=== PATIENT | male | born 1945 | race Caucasian/White ===

== ENCOUNTER 2020-02-29 06:39 | Emergency (ER) | payer OTHER ==
--- OUTSIDE RECORDS SUMMARY | 2020-02-29 06:41 | XMS REPORT | Continuity of Care Document ---
:[address] [facility] t Address [address] [place] [address] Care Team Providers Name Role Phone Pcp, Does Not Have A Attending Clinician Lab, Fam Pob I Attending Clinician Unavailable Doctor Unassigned, Name Attending Clinician Unavailable Problems This patient has no known problems. Allergies, Adverse Reactions, Alerts This patient has no known allergies or adverse reactions. Medications This patient has no known medications. Procedures This patient has no known procedures. Encounters Start End Encounter Admission Attending Care Care Encounter Source Date/Time Date/Time Type Type Clinicians Facility Department ID 2020-02-27 2020-02-27 Telephone Pcp, [facility] [id number] 00:00:00 00:00:00 Patient Health [id number] Does Not Surgical [id number] Have A Specialti [phone] [address] [place] 2020-02-25 2020-02-25 Laboratory Lab, [facility] [id number] 15:37:19 15:57:19 Only Fam Pob I Health [id number] [place] [id number] Professio [phone] [address]al [address] 2019-12-26 2019-12-26 Laboratory Lab, [facility] [id number] 17:17:23 17:37:23 Only Fam Pob I Health [id number] [place] [id number] Professio [phone] nal [address] 2019-12-26 2019-12-26 Orders Doctor VALERIA [id number] 00:00:00 00:00:00 Only Unassigned, [place]AS[place] [id number] [place] [facility] [phone] [id number] Results This patient has no known results.
--- OUTSIDE RECORDS SUMMARY | 2020-02-29 06:42 | XMS REPORT | Summary of Care ---
:1945 Author Organization [facility] Address [address] [place] [address] Care Team Providers Name Role Phone Unavailable Primary Care Provider Unavailable Reason for Visit Reason Comments LAB covid Encounter Details Date Type Department Care Team Description 12/26/2019 Laboratory Only [facility] Family Unknown, Attending Suspected Covid-19 [facility] Lab, Adc Fam Pob I Virus Infection [address] [place] [address] (Primary D x) [place] [address] Allergies No Known Allergiesdocumented as of this encounter (statuses as of 12/26/2019) Medications Medication Sig Dispensed Refills Start Date End Date Status omeprazole (PRILOSEC) Take 20 mg by mouth 0 Active 20 mg capsule daily. budesonide-formoterol Inhale 2 Puffs 2 0 Active (SYMBICORT) 160-4.5 (two) times daily. mcg/actuation inhaler ALBUTEROL SULFATE Take by mouth. 0 Active (PROVENTIL ORAL) sildenafil (VIAGRA) Take 100 mg by 0 Active 100 mg tablet mouth weekly. albuterol (PROAIR Inhale 2 Puffs 0 Active HFA) 90 mcg/actuation every 6 (six) hours inhaler as needed for Wheezing or Shortness of Breath. ranitidine 150 mg Take 150 mg by 0 Active capsule mouth daily. documented as of this encounter (statuses as of 12/26/2019) Active Problems Not on filedocumented as of this encounter (statuses as of 12/26/2019) Social History Tobacco Use Types Packs/Day Years Used Date Former Smoker Cigarettes Smokeless Tobacco: Never Used Comments: Recently quit smoking Alcohol Use Drinks/Week oz/Week Comments No 0 Standard drinks or equivalent 0.0 Sex Assigned at Date Recorded Not on file COVID-19 Exposure Response Date Recorded In the last month, have you been in contact with No / Unsure 12/26/2019 5:24 PM CDT someone who was confirmed or suspected to have Coronavirus / COVID-19? documented as of this encounter Last Filed Vital Signs Not on filedocumented in this encounter Nursing Notes Marisela Arguello, RN - 12/26/2019 6:00 PM CDTTlencho Goetz is a 74 year old male here for COVID Screening with a Nasopharyngeal Swab All droplet and contact precautions taken with appropriate PPE worn while interacting with patient. ? Goggles ? N95 Mask ? Gloves ? Gown RR 18 Pulse Ox 96% Patient educated on plan of care for visit, swabbing technique, risks and benefits of test and length of time to receive results. Verbal consent obtained to perform test. CDC Fact Sheet for Patients nCoV Diagnostic Panel dated 06/23/2019 and Factsheet What to Do if Sick with COVID 19 06/03/19 provided. Patient swabbed per appropriate nasopharyngeal technique, and patient tolerated well. Patient was discharged from the testing clinic in stable condition. Marisela Arguello RN 12/26/2019 5:25 PM documented in this encounter Plan of Treatment Name Type Priority Associated Diagnoses Order S dari COVID-19 (PCR MOLECULAR LAB Routine Suspected Covid-1 9 Virus Expected: 12/26/2019, TESTING) Infection Expires: 2020 Health Maintenance Due Date Last Done Comments HEPATITIS C (HCV) SCREEN 1945 Depression Screening 1956 DTaP,Tdap,and Td Vaccines (1 - Tdap) 11/07/1963 COLON CANCER SCREENING ANNUAL FIT/FOBT 1994 COLON CANCER SCREENING FIT DNA EVERY 3 YEARS 1994 COLON CANCER SCREENING SIGMOIDOSCOPY EVERY 5 YEARS 1994 COLONOSCOPY 1994 Colorectal Cancer Screening 1994 Zoster Recombinant Vaccine (SHINGRIX) (1 of 2) 1994 LUNG CANCER SCREEN: Recommended for age 55-80 with 30 + 11/07/19 00 pack year history Medicare Wellness Visit 2009 PNEUMOCOCCAL VACCINES 65+ (1 of 1 - PPSV23) 2009 INFLUENZA VACCINE (#1) 2019 documented as of this encounter Implants Implanted Type Area Sales Representative Gas Service Device Shelf Model / Identifier Expiration Date Ser ial / Lot Lens, Sam #[id number] - [id number] LENS Right: Sam 06/07/2022 [id number] / Implanted: Qty: 1 on 09/27/2017 by Radu Najera MD at [facility] 1 [id number] / [id number] documented as of this encounter Results Not on filedocumented in this encounter Visit Diagnoses Diagnosis Suspected Covid-19 Virus Infection - [facility] marissa documented in this encounter Additional Health Concerns Infection Onset Date Last Indicated Resolved Time COVID-19 Rule Out 12/26/2019 12/26/2019 documented as of this encounter Insurance Payer Benefit Plan / Subscriber ID Effective Dates Phone Addre ss Type Group MEDICARE MEDICARE PART A [id number] 2009-Jesusita [phone] Medicare & B t 82 [id number] [place] [phone] AETNA AETNA INDEMNITY [id number] 2013-Jesusita Indjoselito t documented as of this encounter
--- OUTSIDE RECORDS SUMMARY | 2020-02-29 06:42 | XMS REPORT | Summary of Care ---
:1945 Author Organization [facility] Address [address] [place] [address] Care Team Providers Name Role Phone Pcp, Patient Does Not Have A Primary Care Provider +1-000-00 0-0000 Reason for Visit Reason Comments Results Covid Test results Results Encounter Details Date Type Department Care Team Description 02/27/2020 Telephone [facility] Pcp, Patient Does Re sults (Covid Test Urgent Care Not Have A results); Results [address] [facility], [address] [place] [address] [place], [place] [phone] Allergies No Known Allergiesdocumented as of this encounter (statuses as of 02/27/2020) Medications Medication Sig Dispensed Refills Start Date [...] as of this encounter (statuses as of 02/27/2020) Active Problems Not on filedocumented as of this encounter (statuses as of 02/27/2020) Social History Tobacco Use Types Packs/Day Years Used Date Former Smoker Cigarettes Smokeless Tobacco: Never Used Comments: Recently quit smoking Alcohol Use Drinks/Week oz/Week Comments No 0 Standard drinks or equivalent 0.0 Sex Assigned at Date Recorded Not on file COVID-19 Exposure Response Date Recorded In the last month, have you been in contact with Yes 02/25/2020 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 documented as of this encounter Last Filed Vital Signs Not on filedocumented in this encounter Miscellaneous Notes Telephone Encounter - Marisela Arguello RN - 02/27/2020 4:31 PM CSTYour COVID 19 testing results were positive. At this time, the COVID 19 virus was detected in your sample. If this is the first time you tested positive for COVID 19, we recommend that you remain in self- quarantine along with those in your immediate household until you have been contacted by your [facility] health department who will work with you on when you may discontinue self- quarantine. In addition, your company's employee health department may have additional requirements for clearance to work. Please work with your [facility] health department to address those requirements. Please follow the advice you received in your After Visit Summary (AVS), the CDC document on what todo if you are sick with COVID and/or the CDC document on the COVID 19 test you received. Please stayinside and preferably in one room. Avoid close contact with your family and neighbors to prevent further spread. Wear a face mask if in the presence of someone else. Do not share household items such as dishes and toiletries. Be sure to clean your space thoroughly and wash your hands frequently. If you have symptoms, most people feel better within 7-14 days. If your symptoms are worsening and you feel very short of breath and you have difficulty performing basic tasks such as walking to the bathroomor preparing food, we would like you to contact the [facility] at [phone] or toll free to talk with a nurse or, if your symptoms are urgent, go to the nearest Emergency Room. Please wear a face mask and call prior to going to a healthcare facility. The local health department will be contacting you soon to follow up. If you are a [facility] or contract employee or student, please refer to this website for more information [email or web address]. If this is not the first positive result you received, please be advised that it is unclear, at thistime, how long the virus remains detectable in samples. It appears it could be weeks before a samplebecomes negative. The date of your first positive test and your current symptoms will determine whenyou may discontinue quarantine. Please work with the [facility] for instructions. For further guidance on when you can expect to discontinue quarantine and return to work, please visit the CDC website: https://www.cdc.gov/coronavirus/2019-ncov/hcp/qsludfarmwy-br-hhxa-patients.html. [facility] recommends the symptom-based strategy for those who have symptoms and the time-based strategy for those who do not have symptoms. Repeat testing is not routinely recommended for any reason due to the prolonged detection of the virus in samples without evidence of transmission. General guidance includes release from quarantine when the following conditions are met: ? At least 24 hours have passed since recovery defined as resolution of fever without the use of fever-reducing medications and ? Improvement in symptoms (e.g., cough, shortness of breath); and, ? At least 10 days have passed since symptoms first appeared or the first positive test if symptoms have not developed or worsened since testing, at which point, use date symptoms began. ? Continue to wear a face mask until 14 days have passed since your first test or first symptoms appeared. ? If you experience a worsening of symptoms or recover and then redevelop symptoms, please speak with a provider for further evaluation. Those in your household should remain in quarantine for 14 days to allow time for incubation, or, iftesting positive, should follow the above guidelines for discontinuing quarantine. elephone Encounter - Sydnee King - 02/27/2020 1:18 PM CSTPatient calling for status of his results. elephone Encounter - Lynn Steele - 02/27/2020 10:06 AM LEAD TRAINER Patient is calling for results. Please advise. documented in this encounter Plan of Treatment Health Maintenance Due Date Last Done Comments [...] of this encounter Implants Implanted Type Area Child Care Supervisor Device Shelf Model / Identifier Expiration Date Ser ial / Lot Lens, Sam #[id number] - [id number] LENS Right: Sam 06/07/2022 [id number] / Implanted: Qty: 1 on 09/27/2017 by Radu Najera MD at [facility] 1 [id number] / [id number] documented as of this encounter Results Not on filedocumented in this encounter Additional Health Concerns Infection Onset Date Last Indicated Resolved Time COVID-19 Confirmed 02/25/2020 02/25/2020 documented as of this encounter Insurance Payer Benefit Plan / Subscriber ID Effective Dates Phone Addre ss Type Group MEDICARE MEDICARE PART A [id number] 2009-Jesusita [phone] Medicare & B t 82 [id number] [place] [phone] AETNA AETNA INDEMNITY [id number] 2013-Jesusita Indjoselito navarro documented as of this encounter
--- OUTSIDE RECORDS SUMMARY | 2020-02-29 06:42 | XMS REPORT | Summary of Care ---
:1945 Author Organization [facility] Address [address] [place] [address] Care Team Providers Name Role Phone Pcp, Patient Does Not Have A Primary Care Provider +1-000-00 0-0000 Reason for Visit Reason Comments LAB Exposure Encounter Details Date Type Department Care Team Description 02/25/2020 Laboratory Only [facility] Family Aaron Michel FNP [address] [place] [address] Exposure to Medicine - [facility], Adc Fam Pob I SARS-associated [address] [place] [address] coronaviru s (Primary Drive Dx) [place] [address] Allergies No Known Allergiesdocumented as of this encounter (statuses as of 02/25/2020) Medications Medication Sig Dispensed Refills Start Date [...] as of this encounter (statuses as of 02/25/2020) Active Problems Not on filedocumented as of this encounter (statuses as of 02/25/2020) Social History Tobacco Use Types Packs/Day Years Used Date Former Smoker Cigarettes Smokeless Tobacco: Never Used Comments: Recently quit smoking Alcohol Use Drinks/Week oz/Week Comments No 0 Standard drinks or equivalent 0.0 Sex Assigned at Date Recorded Not on file COVID-19 Exposure Response Date Recorded In the last month, have you been in contact with Yes 02/25/2020 3:41 PM 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 documented as of this encounter Last Filed Vital Signs Not on filedocumented in this encounter Nursing Notes Bren Mejia MA - 02/25/2020 4:00 PM CSTTersky Goetz is a 74 year old male here for COVID Screening with a Nasopharyngeal Swab All droplet and contact precautions taken with appropriate PPE worn while interacting with patient. ? Goggles ? N95 Mask ? Gloves ? Gown RR 14 Pulse 86 Ox 96% Patient educated on plan of care for visit, swabbing technique, risks and benefits of test and length of time to receive results. Verbal consent obtained to perform test. CDC Fact Sheet for Patients nCoV Diagnostic Panel dated 06/23/2019 and Factsheet What to Do if Sick with COVID 19 06/03/19 provided. Bilate nares swabbed during COVID19 nasopharyngeal swab. Patient swabbed per appropriate nasopharyngeal technique, and patient tolerated well. Patient was discharged from the testing clinic in stable condition. BREN MEJIA MA 02/25/2020 3:40 PM ING OR NIGHT NURSE SUPERVISOR documented in this encounter Plan of Treatment Name Type Priority Associated Diagnoses Order S lisadufranc COVID-19 (MOLECULAR LAB Routine Exposure to Expected : 02/25/2020, TESTING SARS-associated Expires: 021 NUCLEIC ACID coronavirus AMPLIFICATION) Health Maintenance Due Date Last Done Comments [...] of this encounter Implants Implanted Type Area Seasonal Retail Merchandiser Device Shelf Model / Identifier Expiration Date Ser ial / Lot Lens, Sam #[id number] - [id number] LENS Right: Sam 06/07/2022 [id number] / Implanted: Qty: 1 on 09/27/2017 by Radu Najera MD at [facility] 1 [id number] / [id number] documented as of this encounter Results Not on filedocumented in this encounter Visit Diagnoses Diagnosis Exposure to SARS-associated coronavirus - Primary documented in this encounter Additional Health Concerns Infection Onset Date Last Indicated Resolved Time COVID-19 Rule Out 02/25/2020 02/25/2020 documented as of this encounter Insurance Payer Benefit Plan / Subscriber ID Effective Dates Phone Addre ss Type Group MEDICARE MEDICARE PART A [id number] 2009-Jesusita [phone] Medicare & B t 82 [id number] [place] [phone] AETNA AETNA INDEMNITY [id number] 2013-Jesusita Indemgilmaty t documented as of this encounter
--- OUTSIDE RECORDS SUMMARY | 2020-02-29 06:42 | XMS REPORT | Summary of Care ---
:1945 Author Organization [facility] Address [address] [place] [address] Care Team Providers Name Role Phone Unavailable Primary Care Provider Unavailable Encounter Details Date Type Department Care Team Description 12/26/2019 Orders Only [facility] Doctor Unassigned, No [address] [facility] [place] [address] [address] [place] [address] Allergies No Known Allergiesdocumented as of this [...] Assigned at Date Recorded Not on file documented as of this encounter Last Filed Vital Signs Not on filedocumented in this encounter Plan of Treatment Date Type Specialty Care Team Description 12/26/2019 Laboratory Only Family [facility] Unknown, Attending Lab, Adc Fam Pob I Health Maintenance Due Date Last Done Comments [...] of this encounter Implants Implanted Type Area Lawn Care Technician Device Shelf Model / Identifier Expiration Date Ser ial / Lot Lens, Sam #[id number] - [id number] LENS Right: Sam 06/07/2022 [id number] / Implanted: Qty: 1 on 09/27/2017 by Radu Najera MD at [facility] 1 [id number] / [id number] documented as of this encounter Procedures Procedure Name Priority Date/Time Associated Diagnosis Comme nts ASSIGNMENT OF BENEFITS Routine 12/26/2019 5:14 PM CDT documented in this encounter Results Not on filedocumented in this encounter Insurance Payer Benefit Plan / Subscriber ID Effective Dates Phone Addre ss Type Group MEDICARE MEDICARE PART A [id number] 2009-Jesusita [phone] Medicare & B t 82 [id number] [place] [phone] AETNA AETNA INDEMNITY [id number] 2013-Jesusita Indemnity t documented as of this encounter
[2020-02-29] MEDS ORDERED: NA CHLORIDE 0.9% 500 ML ONE (08:00)
[2020-02-29 08:05] LABS: Absolute Lymphocytes (CBC) 0.8 K/uL (0.7-4.9); Basophils % 0.9 % (0-1.3); Hematocrit 45.3 % (39.6-49.0); Lymphocytes % 18.7 % (15.3-44.8); MPV 8.5 fL (7.6-11.3); RBC Red Blood Cell Count 5.15 M/uL (4.33-5.43)
[2020-02-29] MEDS ORDERED: FAMOTIDINE 20 MG/2 ML VIAL IV ONE (08:13)
[2020-02-29 08:24] LABS: Albumin 3.3 g/dL (3.4-5.0); Bilirubin Direct 0.2 mg/dL (0-0.2); Bilirubin Total 0.6 mg/dL (0.2-1.0); Potassium 4.7 mmol/L (3.5-5.1); Protein, Total 7.3 g/dL (6.4-8.2)
--- NOTE | 2020-02-29 10:02 | ER ---
Nurse's Notes [facility] Name: Ricky Goetz Age: 74 yrs Sex: Male : 1945 Arrival Date: 02/29/2020 Time: 06:44 Bed 14 Private MD: Diagnosis: Diarrhea, unspecified;Dehydration;Nausea Presentation: 02/28 07:10 Chief complaint: Patient states: his PCP sent him here to get some IVF, pt had been sv having diarrhea since Monday but doesn't currently because he was prescribed an antidiarrheal med. c/o loss of appetite. COVID-19+. Coronavirus screen: Client denies travel out of the [place] in the last 14 days. Client reports previous positive COVID test result. Date of collection: February 25, 2020. Ebola Screen: No symptoms or risks identified at this time. Initial Sepsis Screen: Does the patient meet any 2 criteria? No. Patient's initial sepsis screen is negative. Does the patient have a suspected source of infection? No. Patient's initial sepsis screen is negative. Risk Assessment: Do you want to hurt yourself or someone else? Patient reports no desire to harm self or others. Onset of symptoms was February 25, 2020. 07:10 Method Of Arrival: Ambulatory sv 07:10 Acuity: NANNETTE 3 sv Triage Assessment: 07:13 General: Appears in no apparent distress. comfortable, malnourished, Behavior is calm, sv cooperative, appropriate for age. Pain: Denies pain. Neuro: Level of Consciousness is awake, alert, obeys commands, Oriented to person, place, time, situation, Gait is steady. Respiratory: Respiratory effort is even, unlabored. GI: Patient currently denies diarrhea. Historical: - Allergies: 07:13 No Known Allergies; sv - Home Meds: 07:13 Omeprazole Oral [Active]; Albuterol Inhl [Active]; sildenafil oral oral [Active]; sv Famotidine Oral [Active]; - PMHx: 07:13 GERD; COPD; Asthma; Emphysema; Grave's dx; sv - PSHx: 07:13 cataract removed; back sx x3; sv - Immunization history:: Flu vaccine is up to date. - Social history:: Smoking status: Patient denies any tobacco usage or history of. Screenin:04 Abuse screen: Denies threats or abuse. Nutritional screening: No deficits noted. em Tuberculosis screening: No symptoms or risk factors identified. Fall Risk None identified. Assessment: 07:50 General: Appears in no apparent distress. comfortable, Behavior is calm, cooperative, em appropriate for age, Denies fever. Pain: Denies pain. Neuro: Level of Consciousness is awake, alert, obeys commands, Oriented to person, place, time, situation, Appropriate for age. Cardiovascular: Denies chest pain, Capillary refill < 3 seconds Patient's skin is warm and dry. Respiratory: Airway is patent Respiratory effort is even, unlabored, Respiratory pattern is regular, symmetrical, Denies cough, shortness of breath. GI: Abdomen is flat, Reports diarrhea, intolerance of fluids, intolerance of food, Patient currently denies nausea, vomiting. Derm: Skin is intact, is fragile, is thin, Skin is pink, warm \T\ dry. Musculoskeletal: Capillary refill < 3 seconds, Range of motion: intact in all extremities. 08:39 Reassessment: Patient appears in no apparent distress at this time. Patient and/or em family updated on plan of care and expected duration. Pain level reassessed. Patient is alert, oriented x 3, equal unlabored respirations, skin warm/dry/pink. 09:50 Reassessment: given water for PO challenge, tolerated well, provider notified. em Vital Signs: 07:10 BP 132 / 65; Pulse 63; Resp 14; Temp 98.3; Pulse Ox 98% ; Weight 68.04 kg; Height 5 ft. sv 9 in. (175.26 cm); Pain 0/10; 08:23 BP 118 / 105; Pulse 65; Resp 18; Pulse Ox 99% on R/A; em 09:30 BP 125 / 66; Pulse 65; Resp 18; Pulse Ox 100% on R/A; em 07:10 Body Mass Index 22.15 (68.04 kg, 175.26 cm) sv ED Course: 06:44 Patient arrived in ED. ag3 07:08 Santy Downing MD is Attending Physician. kdr 07:12 Triage completed. sv 07:13 Arm band placed on Patient placed in an exam room. sv 07:22 Jose Iqabl, ASTRID is Primary Nurse. em 07:50 Patient has correct armband on for positive identification. Side rails up X2. Pulse ox em on. NIBP on. 07:55 Initial lab(s) drawn, by me, sent to lab. Inserted saline lock: 20 gauge in right em antecubital area, using aseptic technique. Blood collected. 09:54 Diet: Patient given water. dh3 10:02 No provider procedures requiring assistance completed. IV discontinued, intact, em bleeding controlled, No redness/swelling at site. Pressure dressing applied. Administered Medications: 07:55 Drug: NS 0.9% 500 ml Route: IV; Rate: bolus; Site: right antecubital; em 10:02 Follow up: IV Status: Completed infusion; IV Intake: 500ml em 08:01 Drug: Pepcid 20 mg Route: IVP; Site: right antecubital; em 10:01 Follow up: Response: No adverse reaction em Intake: 10:02 IV: 500ml; Total: 500ml. em Outcome: 10:01 Discharge ordered by . kdr 10:15 Discharged to home via wheelchair. em 10:15 Condition: good 10:15 Discharge instructions given to patient, family, Instructed on discharge instructions, follow up and referral plans. medication usage, Demonstrated understanding of instructions, follow-up care, medications, Prescriptions given X 1. 10:16 Patient left the ED. em Signatures: Michelle Caceres RN RN sv Rittger, Kevin, MD MD kdr Munoz, Edgar, RN RN em Herrera, Deanna community [facility] Chio Morton 3
--- NOTE | 2020-02-29 10:02 | EDPHYS ---
Physician Documentation [facility] Name: Ricky Goetz Age: 74 yrs Sex: Male : 1945 Arrival Date: 02/29/2020 Time: 06:44 Bed 14 Private MD: ED Physician Santy Downing HPI: 02/28 07:37 This 74 yrs old Male presents to ER via Ambulatory with complaints of kdr Diarrhea. 07:37 The patient tested positive for COVID on Monday. He and been feeling poorly since last kdr weekend and has been having diarrhea after attempting to eat and drink. He generally feels weak and currently has no TOMPKINS or fever for the last few days. Onset: The symptoms/episode began/occurred gradually, 1 week(s) ago. Severity of symptoms: At their worst the symptoms were mild moderate just prior to arrival, in the emergency department the symptoms have improved mildly. The patient has not experienced similar symptoms in the past. The patient has been recently seen by a physician:. Historical: - Allergies: 07:13 No Known Allergies; sv - Home Meds: 07:13 Omeprazole Oral [Active]; Albuterol Inhl [Active]; sildenafil oral oral [Active]; sv Famotidine Oral [Active]; - PMHx: 07:13 GERD; COPD; Asthma; Emphysema; Grave's dx; sv - PSHx: 07:13 cataract removed; back sx x3; sv - Immunization history:: Flu vaccine is up to date. - Social history:: Smoking status: Patient denies any tobacco usage or history of. ROS: 07:37 Constitutional: Negative for fever, chills, for the last three days and weight loss, kdr Eyes: Negative for injury, pain, redness, and discharge, ENT: Negative for injury, pain, and discharge, Neck: Negative for injury, pain, and swelling, Cardiovascular: Negative for chest pain, palpitations, and edema, Respiratory: Negative for shortness of breath, cough, wheezing, and pleuritic chest pain, Back: Negative for injury and pain, : Negative for injury, bleeding, discharge, and swelling, MS/Extremity: Negative for injury and deformity, Skin: Negative for injury, rash, and discoloration, Neuro: Negative for headache, weakness, numbness, tingling, and seizure activity. Psych: Negative for depression, anxiety, suicide ideation, homicidal ideation, and hallucinations, Allergy/Immunology: Negative for hives, rash, and allergies, Endocrine: Negative for neck swelling, polydipsia, polyuria, polyphagia, and marked weight changes, Hematologic/Lymphatic: Negative for swollen nodes, abnormal bleeding, and unusual bruising. 07:37 Abdomen/GI: Positive for diarrhea, Negative for vomiting, constipation, abdominal distension, anorexia, dysphagia, hematemesis, black/tarry stool, rectal pain, rectal bleeding, bowel incontinence. Exam: 07:37 Constitutional: This is a well developed, well nourished patient who is awake, alert, kdr and in no acute distress. Head/Face: Normocephalic, atraumatic. Eyes: Pupils equal round and reactive to light, extra-ocular motions intact. Lids and lashes normal. Conjunctiva and sclera are non-icteric and not injected. Cornea within normal limits. Periorbital areas with no swelling, redness, or edema. Neck: Trachea midline, no thyromegaly or masses palpated, and no cervical lymphadenopathy. Supple, full range of motion without nuchal rigidity, or vertebral point tenderness. No Meningismus. Chest/axilla: Normal chest wall appearance and motion. Nontender with no deformity. No lesions are appreciated. Cardiovascular: Regular rate and rhythm with a normal S1 and S2. No gallops, murmurs, or rubs. Normal PMI, no JVD. No pulse deficits. Respiratory: Lungs have equal breath sounds bilaterally, clear to auscultation and percussion. No rales, rhonchi or wheezes noted. No increased work of breathing, no retractions or nasal flaring. Abdomen/GI: Soft, non-tender, with normal bowel sounds. No distension or tympany. No guarding or rebound. No evidence of tenderness throughout. Back: No spinal tenderness. No costovertebral tenderness. Full range of motion. Skin: Warm, dry with normal turgor. Normal color with no rashes, no lesions, and no evidence of cellulitis. MS/ Extremity: Pulses equal, no cyanosis. Neurovascular intact. Full, normal range of motion. Neuro: Awake and alert, GCS 15, oriented to person, place, time, and situation. Cranial nerves II-XII grossly intact. Motor strength 5/5 in all extremities. Sensory grossly intact. Cerebellar exam normal. Normal gait. Psych: Awake, alert, with orientation to person, place and time. Behavior, mood, and affect are within normal limits. Vital Signs: 07:10 BP 132 / 65; Pulse 63; Resp 14; Temp 98.3; Pulse Ox 98% ; Weight 68.04 kg; Height 5 ft. sv 9 in. (175.26 cm); Pain 0/10; 08:23 BP 118 / 105; Pulse 65; Resp 18; Pulse Ox 99% on R/A; em 09:30 BP 125 / 66; Pulse 65; Resp 18; Pulse Ox 100% on R/A; em 07:10 Body Mass Index 22.15 (68.04 kg, 175.26 cm) sv MDM: 07:37 Data reviewed: vital signs, nurses notes, lab test result(s), radiologic studies. kdr Counseling: I had a detailed discussion with the patient and/or guardian regarding: the historical points, exam findings, and any diagnostic results supporting the discharge/admit diagnosis, lab results, radiology results, the need for outpatient follow up. 10:01 Patient medically screened. kdr 10:04 Special discussion: Based on the patient's Hx, exam, and Dx evaluation, there is no kdr indication for emergent surgery or inpatient Tx. It is understood by the patient/guardian that if the Sx's persist or worsen they need to return immediately for re-evaluation. I discussed with the patient/guardian in detail that at this point there is no indication for admission to the hospital. It is understood, however, that if the symptoms persist or worsen the patient needs to return immediately for re-evaluation. 10:04 ED course: The patient was taking PO and feeling much better and ready to go home. He kdr was much improved with the interventions given. 02/28 07:36 Order name: Basic Metabolic Panel; Complete Time: 09: kdr 02/28 07:36 Order name: CBC with Diff; Complete Time: 09: kdr 02/28 07:36 Order name: Hepatic Function; Complete Time: 09: kdr 02/28 07:36 Order name: Lipase; Complete Time: 09: kdr 02/28 07:36 Order name: IV Saline Lock; Complete Time: 07:56 kdr 02/28 07:36 Order name: Labs collected and sent; Complete Time: 07:56 kdr 02/28 09:09 Order name: PO challenge; Complete Time: 09:54 kdr Administered Medications: 07:55 Drug: NS 0.9% 500 ml Route: IV; Rate: bolus; Site: right antecubital; em 10:02 Follow up: IV Status: Completed infusion; IV Intake: 500ml em 08:01 Drug: Pepcid 20 mg Route: IVP; Site: right antecubital; em 10:01 Follow up: Response: No adverse reaction em Disposition: 02/29/20 10:01 Discharged to Home. Impression: Diarrhea, unspecified, Dehydration, Nausea. - Condition is Stable. - Discharge Instructions: Dehydration, Elderly, Diarrhea, Adult, Noad-ae-Krzm. - Prescriptions for Zofran 4 mg Oral Tablet - take 1 tablet by ORAL route every 4-6 hours As needed; 12 tablet. - Medication Reconciliation Form, Thank You Letter form. - Follow up: Private Physician; When: 2 - 3 days; Reason: If symptoms return, Further diagnostic work-up, Recheck today's complaints, Continuance of care, Re-evaluation by your physician. - Problem is new. - Symptoms have improved. Signatures: Dispatcher [employer] Michelle Roca RN RN sv Santy Downing MD MD [facility] Jose Iqbal RN RN em Corrections: (The following items were deleted from the chart) 10:16 10:01 02/29/2020 10:01 Discharged to Home. Impression: Diarrhea, unspecified; em Dehydration; Nausea. Condition is Stable. Forms are Medication Reconciliation Form, Thank You Letter, Antibiotic Education, Prescription Opioid Use. Follow up: Private Physician; When: 2 - 3 days; Reason: If symptoms return, Further diagnostic work-up, Recheck today's complaints, Continuance of care, Re-evaluation by your physician. Problem is new. Symptoms have improved. kdr
[2020-02-29 16:20] VITALS: TEMP 98.3
[2020-02-29 16:23] VITALS: BP 125/66; O2SAT 100
== END 2020-02-29 10:16 | disposition home or self-care (01) ==
LOC: ER 06:39
DX: E86.0 Dehydration (principal); R11.0 Nausea; Z86.19 Personal history of other infectious and parasitic diseases; J44.9 Chronic obstructive pulmonary disease, unspecified
CPT/HCPCS: 96361; 85025; 80048; 36415; 80076; 83690; 96374; 99284; J7040

== ENCOUNTER 2020-03-04 11:37 | Observation (INO) | payer OTHER ==
--- OUTSIDE RECORDS SUMMARY | 2020-03-04 11:39 | XMS REPORT | Continuity of Care Document ---
:1945 Author Organization [facility] t Address [address] [place] [address] Care Team Providers Name Role Phone Pcp, [...] Facility Department ID 2020-02-27 2020-02-27 Telephone Pcp, [facility] [id number] 00:00:00 00:00:00 Patient Health [id number] Does Not Surgical [id number] Have A Specialti [phone] es [address] [place] 2020-02-25 2020-02-25 Laboratory Lab, [facility] [id number] 15:37:19 15:57:19 Only Fam Pob I Health [id number] [place] [id number] Professio [phone] [address] 2019-12-26 2019-12-26 Laboratory Lab, [facility] [id number] 17:17:23 17:37:23 Only Fam Pob I Health [id number] [place] [id number] Professio [phone] [address] 2019-12-26 2019-12-26 Orders Doctor VALERIA [id number] 00:00:00 00:00:00 Only Unassigned, VASQUEZ [id number] Katherine [facility] [phone] [id number] Results This patient has no known results.
--- NOTE | 2020-03-04 12:36 | RAD REPORT ---
EXAM DESCRIPTION: RAD - Chest Single View - 03/04/2020 12:27 pm CLINICAL HISTORY: general weaknesshistory of positive COVID test COMPARISON: December 18 TECHNIQUE: AP portable chest image was obtained 03/04/2020 12:27 pm . FINDINGS: No dense consolidated mass seen. However, the patient has bilateral hazy ground-glass opac ities scattered throughout both lung king with relative sparing of each apex in each base. Right co stophrenic angle blunting is present. Heart and vasculature are normal. No pneumothorax. No acute bon y abnormality seen. No acute aortic findings suspected. IMPRESSION: Probable COVID-19 pneumonia
[2020-03-04 12:48] LABS: Absolute Lymphocytes (CBC) 0.7 K/uL (0.7-4.9); Basophils % 0.5 % (0-1.3); Hematocrit 44.4 % (39.6-49.0); Lymphocytes % 9.8 % (15.3-44.8); MPV 8.7 fL (7.6-11.3); Protime INR 1.1; RBC Red Blood Cell Count 5.13 M/uL (4.33-5.43)
[2020-03-04 13:01] LABS: ALT/SGPT 27 U/L (12-78); AST/SGOT 56 U/L (15-37); Albumin 2.9 g/dL (3.4-5.0); Alkaline Phosphatase 54 U/L (45-117); BUN Blood Urea Nitrogen 36 mg/dL (7-18); Bicarbonate 26 mmol/L (21-32); Bilirubin Direct 0.4 mg/dL (0-0.2); Bilirubin Total 0.7 mg/dL (0.2-1.0); Glucose Level 102 mg/dL (74-106); Magnesium 2.3 mg/dL (1.8-2.4); NT PRO-BNP 240 pg/mL (<450); Protein, Total 6.9 g/dL (6.4-8.2); Sodium Level 141 mmol/L (136-145); Troponin (Emerg Dept Use Only) < 0.02 ng/mL (0.0-0.045)
[2020-03-04] MEDS ORDERED: NA CHLORIDE 0.9% 500 ML ONE (13:22)
[2020-03-04 13:27] LABS: Blood Morphology Comment NOT SEEN (NOT SEEN); Platelet Estimate ADEQ; White Blood Cell Scan OK (OK)
--- NOTE | 2020-03-04 13:50 | ER ---
Nurse's Notes [facility] Name: Ricky Goetz Age: 74 yrs Sex: Male : 1945 Arrival Date: 03/04/2020 Time: 11:39 Bed 8 Private MD: Diagnosis: Weakness;Pneumonia due to other specified infectious organisms Presentation: 03/04 11:52 Chief complaint: Patient states: Weakness and dehydration for 1 week. Diagnosed covid ll1 positive last week per patient. Still coughing, fever has resolved the past 4 days. No N/V/D, but has no appetite. Coronavirus screen: Client denies travel out of the [place] in the last 14 days. cough unrelated to allergies, difficulty breathing, fatigue, Client presents with at least one sign or symptom that may indicate coronavirus-19. Standard/surgical mask placed on the client. Client reports previous positive COVID test result. Ebola Screen: Patient denies travel to an Ebola-affected area in the 21 days before illness onset. No acute neurological deficit is noted. Initial Sepsis Screen: Does the patient meet any 2 criteria? RR > 20 per min. No. Patient's initial sepsis screen is negative. Does the patient have a suspected source of infection? Yes: Productive cough/pneumonia Other: covid +. Risk Assessment: Do you want to hurt yourself or someone else? Patient reports no desire to harm self or others. Onset of symptoms was February 26, 2020. 11:52 Method Of Arrival: Wheelchair ll1 11:52 Acuity: NANNETTE 3 ll1 Triage Assessment: 12:00 The onset of the patients symptoms was at an unknown time. General: Appears distressed, bp uncomfortable, Behavior is cooperative, appropriate for age, anxious. Pain: Complains of pain in buttocks. EENT: No deficits noted. Neuro: Reports weakness. Cardiovascular: No deficits noted. Respiratory: No deficits noted. GI: No signs and/or symptoms were reported involving the gastrointestinal system. : Reports DARK URINE. Derm: No deficits noted. Musculoskeletal: No deficits noted. Stroke Activation: Symptom onset > 6 hours Physician: Stroke Attending; Name: ; Notified At: ; Arrived At: Physician: Chief Stroke Resident; Name: ; Notified At: ; Arrived At: Physician: Stroke Resident; Name: ; Notified At: ; Arrived At: Physician: ED Attending; Name: ; Notified At: ; Arrived At: Physician: ED Resident; Name: ; Notified At: ; Arrived At: Historical: - Allergies: 11:57 No Known Allergies; ll1 - PMHx: 11:57 COPD; Emphysema; GERD; Grave's dx; Asthma; ll1 - PSHx: 11:57 cataract removed; back sx x3; ll1 - Immunization history:: Pneumococcal vaccine is up to date, Flu vaccine is up to date. - Social history:: Smoking status: Patient denies any tobacco usage or history of. Screenin:00 Abuse screen: Denies threats or abuse. Denies injuries from another. Nutritional bp screening: No deficits noted. Tuberculosis screening: No symptoms or risk factors identified. Fall Risk Fall in past 12 months (25 points). No secondary diagnosis (0 pts). IV access (20 points). Ambulatory Aid- None/Bed Rest/Nurse Assist (0 pts). Gait- Weak (10 pts.). Mental Status- Oriented to own ability (0 pts). Total Morales Fall Scale indicates High Risk Score (45 or more points). Fall prevention measures have been instituted. Side Rails Up X 2 Placed Close to Nursing Station Frequent Obs/Assessments Occuring Family Present and informed to notify staff if the need to leave the bedside As available patient and family educated on Fall Prevention Program and Strategies. Assessment: 12:00 General: SEE TRIAGE NOTE. bp 13:01 Reassessment: Call from Hortencia from Lab, patient lactate of 2.3 reported. Notified vg1 Provider. 13:05 T-PA (Activase) Screening: Contraindications: Patient reports onset of signs and bp symptoms of stroke greater than 6 hours ago: Yes. 13:13 VAN Scoring: Arm Drift: Patients demonstrates NO arm weakness. Patient is VAN Negative. bp The patient has not been NPO before screening. The patient is alert, and able to follow commands. The patient does not exhibit slurred or garbled speech. The patient is not exhibiting difficulty speaking. The patient does not exhibit difficulty understanding words. The patient is able to swallow own secretions with no drooling or need for suction. Patient tolerated one teaspoon of water. No drooling, immediate coughing, gurgling, or clearing of the throat was noted. The patient tolerated 90mL of water. No drooling, immediate coughing, gurgling, or clearing of the throat was noted. The patient passed the bedside swallow screening. Oral medications may be given as ordered. Contact Physician for further diet orders. Provider notified of bedside swallow screening results: Enrrique MCGRATH. 13:40 Reassessment: ADD'L ABX REQUESTED FROM PHARMACY. bp 14:30 Reassessment: No changes from previously documented assessment. Patient and/or family bp updated on plan of care and expected duration. Pain level reassessed. Patient is alert, oriented x 3, equal unlabored respirations, skin warm/dry/pink. ADMIT INITIATED. ADMIT MD AT B/S. 15:30 Reassessment: ADMIT IN PROCESS. Respiratory: Breath sounds are coarse bilaterally. bp 16:29 Reassessment: ADMIT COMPLETE, REPORT TO [facility]ILB[facility]O RESENDIZ. TRANSPORT ELBA PENDING. bp Vital Signs: 11:52 BP 128 / 87; Pulse 72; Resp 22; Temp 97.7(O); Pulse Ox 92% on R/A; Weight 73.48 kg; ll1 Height 5 ft. 9 in. (175.26 cm); Pain 0/10; 12:20 BP 121 / 78 Supine; Pulse 66; bp 12:25 BP 65 / 50 Standing; Pulse 54; bp 13:00 BP 128 / 77; Pulse 81; Resp 16; Pulse Ox 95% ; bp 14:00 BP 132 / 72; Pulse 72; Resp 16; Pulse Ox 96% ; bp 15:00 BP 109 / 96; Pulse 70; Resp 16; Pulse Ox 95% ; bp 16:00 BP 128 / 74; Pulse 71; Resp 16; Pulse Ox 98% ; bp 11:52 Body Mass Index 23.92 (73.48 kg, 175.26 cm) ll1 NIH Stroke Scale Scores: 13:13 NIHSS Score: 2 bp ED Course: 11:39 Patient arrived in ED. ds1 11:41 Enrrique Reynoso PA is PHCP. cp 11:41 Pauline Walls MD is Attending Physician. cp 11:53 Reid Rasheed, ASTRID is Primary Nurse. bp 11:56 Triage completed. ll1 11:56 Arm band placed on Patient placed in an exam room, on a stretcher. ll1 12:00 Patient has correct armband on for positive identification. Bed in low position. Call bp light in reach. Side rails up X2. Adult w/ patient. 12:15 Inserted saline lock: 22 gauge in right forearm, using aseptic technique. bp 12:27 XRAY Chest (1 view) In Process Unspecified. EDMS 13:49 Jose Garza DO is Hospitalizing Provider. cp 15:[address] via stretcher. jj2 15:15 CT completed. Patient tolerated procedure well. jj2 15:34 No provider procedures requiring assistance completed. Patient admitted, IV remains in bp place. Administered Medications: 12:20 Drug: Albuterol HFA Inhaler 2 puffs Route: Inhalation; bp 13:05 Drug: NS 0.9% 500 ml Route: IV; Rate: bolus; Site: right wrist; bp 15:32 Follow up: IV Status: Completed infusion; IV Intake: 500ml bp 13:40 Drug: Rocephin 1 grams Route: IV; Rate: calculated rate; Site: right antecubital; bp 15:32 Follow up: IV Status: Completed infusion; IV Intake: 50ml bp 14:06 Not Given (Physician Discretion): Decadron - Dexamethasone 6 mg IVP once cp 14:20 Drug: SOLU-Medrol 60 mg Route: IVP; Site: right antecubital; bp 15:32 Follow up: Response: No adverse reaction bp 16:35 Follow up: Response: No adverse reaction bp 15:00 Drug: Zithromax 500 mg Route: IVPB; Infused Over: 1 hrs; Site: right antecubital; bp 16:35 Follow up: IV Status: Completed infusion; IV Intake: 250ml bp Intake: 15:32 IV: 500ml; Total: 500ml. bp 15:32 IV: 50ml; Total: 550ml. bp 16:35 IV: 250ml; Total: 800ml. bp Outcome: 13:49 Decision to Hospitalize by Provider. cp 16:32 Admitted to ICU accompanied by tech, via stretcher, room 7, Report called to GILBERTO RESENDIZ bp 16:32 Condition: stable 16:32 Instructed on the need for admit. 16:53 Patient left the ED. bp NIH Stroke Scale - NIH Stroke Score Date: 03/04/2020 Time: 13:13 Total Score = 2 1a. Level of Consciousness (LOC) - 0(Alert) 1b. Level of Consciousness (LOC) (Year \T\ Age) - 0(Both) 1c. LOC Commands (Open \T\ Closes Eyes/Electrical Prospecting Operator) - 0(Both) 2. Best Gaze (Lateral Gaze Paresis) - 0(Normal) 3. Visual Field Loss - 0(No visual loss) 4. Facial Palsy - 0(Normal) 5a. Left Arm: Motor (10-second hold) - 0(No drift) 5b. Right Arm: Motor (10-second hold) - 0(No drift) 6a. Left Leg: Motor (5-second hold - always test supine) - 1(Drift) 6b. Right Leg: Motor (5-second hold - always test supine) - 1(Drift) 7. Limb Ataxia (finger/nose \T\ heel/stone - test with eyes open) - 0(Absent) 8. Sensory Loss (pinprick arms/legs/face) - 0(Normal) 9. Best Language: Aphasia (description/naming/reading) - 0(No aphasia) 10. Dysarthria (speech clarity - read or repeat words) - 0(Normal) 11. Extinction and Inattention (visual/tactile/auditory/spatial/personal) - 0(No abnormality) Initials: bp Signatures: Dispatcher [employer] EDMS Timothy Woodson jj2 Rj, Yelitza ds1 Enrrique Reynoso PA PA cp Peltier, Brian, RN RN bp Virginia Rodriguez, ASTRID RN vg1 Carl Trujillo, ASTRID RN ll1 Corrections: (The following items were deleted from the chart) 14:48 12:15 Inserted saline lock: 20 gauge in right forearm, using aseptic technique. bp bp
--- NOTE | 2020-03-04 13:51 | EDPHYS ---
Physician Documentation [facility] Name: Ricky Goetz Age: 74 yrs Sex: Male : 1945 Arrival Date: 03/04/2020 Time: 11:39 Bed 8 Private MD: ED Physician Pauline Walls HPI: 03/04 12:00 This 74 yrs old Male presents to ER via Wheelchair with complaints of cp Weakness, Dark Urine. 12:00 The patient presents to the emergency department with weakness of the entire body, cp generalized weakness. 12:00 Onset: The symptoms/episode began/occurred 1 week(s) ago. cp 12:00 Associated signs and symptoms: Pertinent negatives: fever, chest pain, abdominal pain. cp 12:00 Patient's baseline: Neuro: alert and fully oriented, Motor: no deficits, Ambulation: cp walks without assistance, Speech: normal. 12:00 Patient reports being diagnosed with COVID-19 last week. cp Historical: - Allergies: 11:57 No Known Allergies; ll1 - PMHx: 11:57 COPD; Emphysema; GERD; Grave's dx; Asthma; ll1 - PSHx: 11:57 cataract removed; back sx x3; ll1 - Immunization history:: Pneumococcal vaccine is up to date, Flu vaccine is up to date. - Social history:: Smoking status: Patient denies any tobacco usage or history of. ROS: 12:05 Constitutional: Positive for poor PO intake, Negative for body aches, chills, fever. cp 12:05 Eyes: Negative for injury, pain, redness, and discharge. cp 12:05 ENT: Negative for ear pain, sore throat, difficulty swallowing, difficulty handling secretions. 12:05 Cardiovascular: Negative for chest pain, palpitations. 12:05 Respiratory: Positive for cough, shortness of breath, Negative for wheezing. 12:05 Abdomen/GI: Negative for abdominal pain, vomiting, diarrhea, constipation. 12:05 Neuro: Positive for weakness, Negative for altered mental status, headache, syncope. 12:05 All other systems are negative. Exam: 12:10 Constitutional: The patient appears in no acute distress, alert, awake, cp non-diaphoretic, non-toxic, well developed, well nourished. 12:10 Head/Face: Normocephalic, atraumatic. cp 12:10 Eyes: Periorbital structures: appear normal, Pupils: equal, round, and reactive to light and accomodation, Extraocular movements: intact throughout, Conjunctiva: normal, no exudate, no injection, Sclera: no appreciated abnormality, Lids and lashes: appear normal, bilaterally. 12:10 ENT: External ear(s): are unremarkable, Nose: is normal, Mouth: Lips: moist, Oral mucosa: moist, Posterior pharynx: Airway: no evidence of obstruction, patent. 12:10 Neck: ROM/movement: is normal, is supple, without pain, no range of motions limitations. 12:10 Chest/axilla: Inspection: normal, Palpation: is normal, no crepitus, no tenderness. 12:10 Cardiovascular: Rate: normal, Rhythm: regular, Edema: is not appreciated, JVD: is not appreciated. 12:10 Respiratory: the patient does not display signs of respiratory distress, Respirations: labored breathing, that is mild, intercostal retractions, are absent, Breath sounds: bronchial sounds, that are mild, are heard diffusely, wheezing: is not appreciated. 12:10 Abdomen/GI: Inspection: abdomen appears normal, Palpation: abdomen is soft and non-tender, in all quadrants. 12:10 Back: pain, is absent, ROM is normal. 12:10 Neuro: Orientation: to person, place \T\ time. Mentation: is normal, Cerebellar function: is grossly normal, Motor: moves all fours, strength is normal, Sensation: is normal. 12:15 ECG was reviewed by the Attending Physician. cp Vital Signs: 11:52 BP 128 / 87; Pulse 72; Resp 22; Temp 97.7(O); Pulse Ox 92% on R/A; Weight 73.48 kg; ll1 Height 5 ft. 9 in. (175.26 cm); Pain 0/10; 12:20 BP 121 / 78 Supine; Pulse 66; bp 12:25 BP 65 / 50 Standing; Pulse 54; bp 13:00 BP 128 / 77; Pulse 81; Resp 16; Pulse Ox 95% ; bp 14:00 BP 132 / 72; Pulse 72; Resp 16; Pulse Ox 96% ; bp 15:00 BP 109 / 96; Pulse 70; Resp 16; Pulse Ox 95% ; bp 16:00 BP 128 / 74; Pulse 71; Resp 16; Pulse Ox 98% ; bp 11:52 Body Mass Index 23.92 (73.48 kg, 175.26 cm) ll1 NIH Stroke Scale Scores: 13:13 NIHSS Score: 2 bp MDM: 11:44 Patient medically screened. cp 13:35 Data reviewed: vital signs, nurses notes, lab test result(s), EKG, radiologic studies, cp plain films. 13:35 Test interpretation: by ED physician or midlevel provider: ECG, plain radiologic cp studies. Counseling: I had a detailed discussion with the patient and/or guardian regarding: the historical points, exam findings, and any diagnostic results supporting the discharge/admit diagnosis, lab results, radiology results, the need for further work-up and treatment in the hospital. 13:36 Physician consultation: Jose Armandochon was called at 13:36, left message on voicemail. 03/04 11:55 Order name: Basic Metabolic Panel; Complete Time: 13:01 03/04 13:01 Interpretation: Normal except: BUN 36; CRE 1.32; GFR 53. 03/04 11:55 Order name: CBC with Diff; Complete Time: 13:40 03/04 13:11 Interpretation: Normal except: IVAN% 85.7; LYM% 9.8. 03/04 11:55 Order name: LFT's; Complete Time: 13:11 03/04 13:11 Interpretation: Normal except: AST 56; BILID 0.4; ALB 2.9; GLOB 4.0; A/G 0.7. 03/04 11:55 Order name: Magnesium; Complete Time: 13:11 03/04 11:55 Order name: NT PRO-BNP; Complete Time: 13:11 03/04 11:55 Order name: PT-INR; Complete Time: 13:01 03/04 11:55 Order name: Troponin (emerg Dept Use Only); Complete Time: 13:11 03/04 11:55 Order name: Lactate; Complete Time: 13:01 03/04 11:55 Order name: Procalcitonin; Complete Time: 13:40 cp 03/04 11:55 Order name: Urine Microscopic Only cp 03/04 12:52 Order name: CBC Smear Scan; Complete Time: 13:40 EDTX 03/04 13:44 Order name: D-Dimer; Complete Time: 14:37 cp 03/04 13:44 Order name: CRP cp 03/04 13:44 Order name: Ferritin cp 03/04 11:55 Order name: Orthostatics; Complete Time: 12:20 cp 03/04 11:55 Order name: XRAY Chest (1 view); Complete Time: 13:01 cp 03/04 11:55 Order name: EKG; Complete Time: 11:56 03/04 14:30 Order name: Social Service Consult [facility] 03/04 14:38 Order name: CT Chest For PE Angio 03/04 15:06 Order name: Urine Dipstick--Ancillary (enter results) bd 03/04 15:39 Order name: CT [facility] 03/04 16:01 Order name: Lactate Sepsis 2 HR Follow-up [facility] 03/04 16:36 Order name: Urine Dipstick-Ancillary [facility] 03/04 16:37 Order name: Influenza Screen (A [facility] 03/04 11:55 Order name: Cardiac monitoring; Complete Time: 12:21 03/04 11:55 Order name: EKG - Nurse/Tech; Complete Time: 12:20 03/04 11:55 Order name: IV Saline Lock; Complete Time: 12:20 03/04 11:55 Order name: Labs collected and sent; Complete Time: 12:32 03/04 11:55 Order name: O2 Per Protocol; Complete Time: 12:20 03/04 11:55 Order name: O2 Sat Monitoring; Complete Time: 12:20 03/04 11:55 Order name: Urine Dipstick-Ancillary (obtain specimen); Complete Time: 14:50 cp EC:15 Rate is 65 beats/min. Rhythm is regular. CT interval is normal. QRS interval is normal. cp QT interval is normal. T waves are Inverted in lead aVR. Interpreted by me. Reviewed by me. Administered Medications: 12:20 Drug: Albuterol HFA Inhaler 2 puffs Route: Inhalation; bp 13:05 Drug: NS 0.9% 500 ml Route: IV; Rate: bolus; Site: right wrist; bp 15:32 Follow up: IV Status: Completed infusion; IV Intake: 500ml bp 13:40 Drug: Rocephin 1 grams Route: IV; Rate: calculated rate; Site: right antecubital; bp 15:32 Follow up: IV Status: Completed infusion; IV Intake: 50ml bp 14:06 Not Given (Physician Discretion): Decadron - Dexamethasone 6 mg IVP once cp 14:20 Drug: SOLU-Medrol 60 mg Route: IVP; Site: right antecubital; bp 15:32 Follow up: Response: No adverse reaction bp 16:35 Follow up: Response: No adverse reaction bp 15:00 Drug: Zithromax 500 mg Route: IVPB; Infused Over: 1 hrs; Site: right antecubital; bp 16:35 Follow up: IV Status: Completed infusion; IV Intake: 250ml bp Disposition: 03/04/20 13:49 Hospitalization ordered by Jose Garza for Observation. Preliminary diagnosis are Weakness, Pneumonia due to other specified infectious organisms. - Bed requested for Intensive Care Unit. - Status is Observation. bp - Condition is Stable. - Problem is new. - Symptoms have improved. NIH Stroke Scale - NIH Stroke Score Date: 03/04/2020 Time: 13:13 Total Score = 2 1a. Level of Consciousness (LOC) - 0(Alert) 1b. Level of Consciousness (LOC) (Year \T\ Age) - 0(Both) 1c. LOC Commands (Open \T\ Closes Eyes/Package Worker) - 0(Both) 2. Best Gaze (Lateral Gaze Paresis) - 0(Normal) 3. Visual Field Loss - 0(No visual loss) 4. Facial Palsy - 0(Normal) 5a. Left Arm: Motor (10-second hold) - 0(No drift) 5b. Right Arm: Motor (10-second hold) - 0(No drift) 6a. Left Leg: Motor (5-second hold - always test supine) - 1(Drift) 6b. Right Leg: Motor (5-second hold - always test supine) - 1(Drift) 7. Limb Ataxia (finger/nose \T\ heel/stone - test with eyes open) - 0(Absent) 8. Sensory Loss (pinprick arms/legs/face) - 0(Normal) 9. Best Language: Aphasia (description/naming/reading) - 0(No aphasia) 10. Dysarthria (speech clarity - read or repeat words) - 0(Normal) 11. Extinction and Inattention (visual/tactile/auditory/spatial/personal) - 0(No abnormality) Initials: bp Addendum: 03/06/2020 11:04 Co-signature as Attending Physician, Pauline Walls MD. ma2 Signatures: Dispatcher [employer] EDJacy Paiz, RN RN Enrrique Linn PA PA cp Peltier, Brian, RN RN Pauline Campos MD MD ma2 Carl Trujillo RN RN ll1 Corrections: (The following items were deleted from the chart) 03/04 14:51 13:49 Hospitalization Ordered by Jose Garza DO for Observation. Preliminary diagnosis is Weakness; Pneumonia due to other specified infectious organisms. Bed requested for Telemetry/MedSurg (observation). Status is Observation. Condition is Stable. Problem is new. Symptoms have improved. cp 16:53 14:51 03/04/2020 13:49 Hospitalization Ordered by Jose Garza DO for bp Observation. Preliminary diagnosis is Weakness; Pneumonia due to other specified infectious organisms. Bed requested for Intensive Care Unit. Status is Observation. Condition is Stable. Problem is new. Symptoms have improved. kl
[2020-03-04] MEDS ORDERED: CEFTRIAXONE/SWI 1gm 1 GM/10 ML SYR ONE ×2 (13:58→14:35)
[2020-03-04] MEDS ORDERED: NA CHLORIDE 0.9% 250 ML ONE (13:58)
[2020-03-04] MEDS ORDERED: dexAMETHasone 10 MG/ML VIAL ONE (13:58)
--- NOTE | 2020-03-04 14:28 | P.HP ---
Certification for Inpatient Patient admitted to: Observation With expected LOS: <2 Midnights Patient will require the following post-hospital care: Other (Home oxygen) Practitioner: I am a practitioner with admitting privileges, knowledge of patient current condition, hospital course, and medical plan of care. Services: Services provided to patient in accordance with Admission requirements found in Title 42 Section 412.3 of the Code of Federal Regulations Patient History Date of Service: 03/04/20 Primary Care Provider: Dr. Cooper; Pulmonary-Dr. Pereira Reason for admission: Shortness of breath, fatigue History of Present Illness: 74-year-old male with history of GERD, emphysema. Patient reports that he tested positive for COVID 19 on February 24. He was given results on the . Patient was actually seen in the ER a couple a days ago for diarrhea. He was evaluated and sent home at that time. Since that time the diarrhea has improved. He does report increased fatigue, shortness of breath. Patient has history of emphysema and uses at a rescue inhaler. Patient denies any chest pain. Some cough, congestion noted nausea vomiting. Poor oral intake noted. His tested negative. He came to the ER for further evaluation. In the ER patient was evaluated. Initial blood pressure within normal range. White count 7.5, hemoglobin 14.9. Sodium 141, potassium 4.0. BUN of 36, creatinine 1.3, GFR 53 and glucose 102. Pro calcitonin within normal range 0.2. Lactic acid 2.3. Chest x-ray showed bilateral infiltrate indicative of COVID 19. Patient was given fluid bolus in the ER due to repeat blood pressure being low. Thereafter blood pressure has stabilize. Patient admitted for further evaluation and treatment. When I saw the patient ER, patient stable with present. Patient was going to get IV Solu-Medrol. Allergies No Known Allergies Allergy (Unverified 10/26/16 13:29) Home medications list reviewed: Yes - Past Medical/Surgical History Diabetic: No -: GERD -: Erectile dysfunction -: Emphysema -: Former tobacco use -: Back surgeries Psychosocial/ Personal History: Patient is - Family History Family History: Reviewed- Non-Contributory - Social History Smoking Status: Former smoker Alcohol use: No CD- Drugs: No Caffeine use: No Place of Residence: Home Review of Systems General: Chills, Weakness, Malaise, As per HPI Eyes: Unremarkable ENT: Unremarkable Respiratory: Shortness of Breath, SOB with Excertion, As per HPI Cardiovascular: Light Headedness, As per HPI Gastrointestinal: Diarrhea, As per HPI Genitourinary: Unremarkable Musculoskeletal: As per HPI Integumentary: Unremarkable Neurological: As per HPI Lymphatics: Unremarkable Physical Examination - Physical Exam General: Alert, In no apparent distress, Oriented x3, Cooperative HEENT: Atraumatic, Normocephalic, Other (Dry Mucous membranes) Neck: Supple Respiratory: Other (Clear bilateral without significant crackles) Cardiovascular: Normal pulses, Regular rate/rhythm Gastrointestinal: Normal bowel sounds, No tenderness, No masses, No rebound, No guarding Musculoskeletal: No erythema, No tenderness, No warmth Integumentary: No tenderness/swelling, No erythema, No warmth, No cyanosis, Other (Increased sweat noted.) Neurological: Normal speech, Normal strength at 5/5 x4 extr, Normal tone, Normal affect - Studies Laboratory Data (last 24 hrs) 03/04/20 12:30: PT 13.0 H, INR 1.10 03/04/20 12:30: WBC 7.5 D, Hgb 14.9, Hct 44.4, Plt Count 200 D 03/04/20 12:30: Sodium 141, Potassium 4.0, BUN 36 H, Creatinine 1.32 H, Glucose 102, Magnesium 2.3, Total Bilirubin 0.7, AST 56 H, ALT 27, Alkaline Phosphatase 54 Assessment and Plan - Plan Impression: Fatigue, shortness of breast secondary to bilateral COVID 19 pneumonia with hypoxia Recent diarrhea with mild acute renal injury likely dehydration GERD History of emphysema and former tobacco use Plan: Fatigue, shortness of breast secondary to bilateral COVID 19 pneumonia with hypoxia: Patient will be admitted for observation. Will place on oxygen. Will obtain CRP, ferritin and D-dimer. Will monitor lab closely. Will start IV Solu-Medrol. Patient given IV fluid bolus in the emergency room. Will make sure patient gets adequate nutrition. Will provide nutritional supplement. Will provide Dulera and ProAir. Maintain oxygen above 93%. Will consult pulmonology to further evaluate and treat. Will provide vitamin supplementation. Will start DVT prophylaxis. Anticipate improvement over the next 24 hr. Patient will likely require home oxygen at discharge. Will have social and human services assistant evaluate. Will discuss further with pulmonology. Recent diarrhea with mild acute renal injury likely dehydration: Diarrhea appea rs resolved. Patient given IV fluid bolus in the ER. Blood pressure stable at this time. Will monitor blood pressure closely. Recheck lab tomorrow. Electrolyte protocol in place. GERD: Continue home medication of Pepcid. History of emphysema and former tobacco use: Patient no longer smokes. Will provide Dulera and ProAir. Maintain oxygen above 93%. Discharge Plan: Home Plan to discharge in: 24 Hours - Advance Directives Does patient have a Living Will: No Does patient have a Durable POA for Healthcare: No - Code Status/Comfort Care Code Status Assessed: Yes (Patient full code) Time Spent Managing Pts Care (In Minutes): 55
[2020-03-04] MEDS ORDERED: METHYLPREDNISOLONE 40 MG INJ ONE (14:34)
[2020-03-04 14:42] LABS: Urine Bacteria <20 /HPF (NONE SEEN); Urine RBC <5 /HPF (NONE SEEN)
[2020-03-04 14:58] LABS: Ferritin 532.2 ng/mL (26-388)
[2020-03-04] MEDS ORDERED: ACETAMINOPHEN 500 MG TAB PO PRN (15:36)
[2020-03-04] MEDS ORDERED: ONDANSETRON 4 MG/2 ML VIAL IV PRN (15:36)
[2020-03-04] MEDS ORDERED: ALBUTEROL 2.5 MG/3 ML NEB SOL NEB PRN (15:36)
--- NOTE | 2020-03-04 15:37 | RAD REPORT ---
EXAM DESCRIPTION: CT - Chest For Pe Angio - 03/04/2020 3:16 pm CLINICAL HISTORY: COUGH , weakness and dehydration, COVID positive, COPD history COMPARISON: THORAX WO CONTRAST dated 04/22/2013; Chest Single View dated 03/04/2020 TECHNIQUE: Dynamically enhanced 3 mm thick images of the chest were obtained during administration o f approximately 150mL Isovue 370 IV contrast. Coronal and oblique MIP reconstruction images were gene rated and reviewed. Exam utilizes a protocol to evaluate the pulmonary arterial tree. All CT scans are performed using dose optimization technique as appropriate and may include automated exposure control or mA/KV adjustment according to patient size. FINDINGS: No pulmonary emboli are identified. The aorta as imaged shows no acute or suspicious finding. No pericardial thickening or effusion. Patient has underlying interstitial fibrotic change and emphysematous changes in the lung king. Per ipheral ground-glass opacification present in the upper lobes and lower lobes. Right middle lobe is g enerally spared. No cavitation or mass lesion. No pleural effusion or pleural thickening. A 3.0 x 1.7 centimeter soft tissue mass is present along the left lateral margin of the left pulmonar y artery. This was not seen on prior imaging. A few additional minimal bilateral hilar lymph nodes ar e present. No chest wall masses or abnormal axillary lymphadenopathy. IMPRESSION: No pulmonary emboli identified. Bilateral ground-glass opacification in a pattern commonly described in COVID-19 pneumonia. Mediastinal and hilar lymphadenopathy most likely reactive.
[2020-03-04] MEDS ORDERED: AZITHROMYCIN IV 500 MG in NA CHLORIDE 0.9% 250 ML IVPB ONE (16:00)
[2020-03-04 16:36] LABS: Urine Blood TRACE (NEG); Urine Glucose NEGATIVE (NEG); Urine Protein 2+ (NEG); Urine Specific Gravity 1.025 (1.005-1.030); Urine pH 5.5 (5.0-7.0)
[2020-03-04] MEDS: ASPIRIN EC 81 MG TAB PO SCH (16:56)
[2020-03-04] MEDS: METHYLPREDNISOLONE 125 MG INJ IV SCH ×2 (17:00→23:53)
[2020-03-04 18:50] LABS: Urine Appearance CLEAR; Urine Bilirubin NEGATIVE (NEG); Urine Blood TRACE (NEG); Urine Color YELLOW; Urine Glucose NEGATIVE (NEG); Urine Protein 1+ (NEG); Urine Specific Gravity >=1.030 (1.005-1.030)
[2020-03-04 18:54] LABS: Urine Microscopic Reflex ORDER UMIC
[2020-03-04 19:03] LABS: Urine Bacteria <20 /HPF (NONE SEEN); Urine RBC <5 /HPF (NONE SEEN)
[2020-03-04] MEDS: FAMOTIDINE 20 MG TAB PO SCH (20:12)
[2020-03-04] MEDS: ENOXAPARIN 40 MG/0.4 ML SQ SCH (20:12)
[2020-03-04] MEDS: ASCORBIC ACID 500 MG TABLET PO SCH (20:12)
[2020-03-04] MEDS: DULERA 100/5 (MOMETASONE/FORMOTEROL) INHALER IH SCH (20:13)
[2020-03-04] MEDS: ENSURE HIGH PROTEIN 237 ML CAN PO SCH (20:25)
[2020-03-04] MEDS ORDERED: MELATONIN 3 MG TABLET PO SCH (21:00)
[2020-03-05] MEDS: METHYLPREDNISOLONE 125 MG INJ IV SCH ×2 (05:28→11:04)
[2020-03-05 05:39] LABS: Absolute Lymphocytes (CBC) 0.5 K/uL (0.7-4.9); Basophils % 0.4 % (0-1.3); Hematocrit 45.6 % (39.6-49.0); Lymphocytes % 9.9 % (15.3-44.8); MPV 8.7 fL (7.6-11.3); RBC Red Blood Cell Count 5.31 M/uL (4.33-5.43)
[2020-03-05 05:43] LABS: Magnesium 2.4 mg/dL (1.8-2.4); Potassium 4.4 mmol/L (3.5-5.1)
[2020-03-05 06:01] VITALS: BMI 21.8
[2020-03-05] MEDS: FAMOTIDINE 20 MG TAB PO SCH (07:28)
[2020-03-05] MEDS: ASPIRIN EC 81 MG TAB PO SCH (07:28)
[2020-03-05] MEDS: ASCORBIC ACID 500 MG TABLET PO SCH (07:29)
[2020-03-05] MEDS: ENOXAPARIN 40 MG/0.4 ML SQ SCH (07:29)
[2020-03-05] MEDS: ENSURE HIGH PROTEIN 237 ML CAN PO SCH (07:30)
[2020-03-05] MEDS: DULERA 100/5 (MOMETASONE/FORMOTEROL) INHALER IH SCH (07:32)
[2020-03-05 08:22] LABS: Ferritin 594.9 ng/mL (26-388)
[2020-03-05] MEDS ORDERED: NYSTATIN 500,000 UNIT/5 ML UDC PO PRN (08:27)
--- NOTE | 2020-03-05 08:34 | P.PN ---
Subjective Date of Service: 03/05/20 Primary Care Provider: Dr. Cooper; Pulmonary-Dr. Pereira Chief Complaint: Shortness of breath, fatigue Subjective: Other (Patient slightly improved. Still tachypneic when walking. Patient requiring oxygen. Currently on 2-3 L.) Physical Examination - Vital Signs Temperature: 97.8 F Blood Pressure: 102/90 Pulse: 102 Respirations: 21 Pulse Ox (%): 91 - Physical Exam General: Alert, In no apparent distress, Oriented x3, Cooperative HEENT: Atraumatic Neck: Supple Respiratory: Normal air movement (When resting) Cardiovascular: Normal pulses, Regular rate/rhythm Gastrointestinal: No tenderness, No masses, No rebound, No guarding Musculoskeletal: No erythema, No tenderness, No warmth Neurological: Normal speech, Normal strength at 5/5 x4 extr, Normal tone, Normal affect - Studies Laboratory Data (last 24 hrs) 03/04/20 12:30: PT 13.0 H, INR 1.10 03/04/20 12:30: WBC 7.5 D, Hgb 14.9, Hct 44.4, Plt Count 200 D 03/04/20 12:30: Sodium 141, Potassium 4.0, BUN 36 H, Creatinine 1.32 H, Glucose 102, Magnesium 2.3, Total Bilirubin 0.7, AST 56 H, ALT 27, Alkaline Phosphatase 54 Medications List Reviewed: Yes Assessment & Plan Discharge Plan: Home Plan to discharge in: 24 Hours Physician Review Additional Text: Impression: Fatigue, shortness of breast secondary to bilateral COVID 19 pneumonia with hypoxia Recent diarrhea with mild acute renal injury likely dehydration CT scan showing 3 x 1.7 cm soft tissue mass along left lateral margin of the left pulmonary artery with hilar adenopathy GERD History of emphysema and former tobacco use Plan: Fatigue, shortness of breast secondary to bilateral COVID 19 pneumonia with hypoxia: CRP slightly improved. Continue IV Solu-Medrol. Will have patient ambulate to see if the patient is ready to go home. He did have some tachypnea and hypoxia with walking this morning. At rest patient is doing well. Will continue to reassess. Will discuss with pulmonology and re-evaluate after lunchtime. Continue nutritional supplementation. If home oxygen can be arranged will consider discharge later today. Patient will require oral steroid, nutritional supplementation and likely anti coagulation therapy discharge Recent diarrhea with mild acute renal injury likely dehydration: Diarrhea appears resolved. Patient given IV fluid bolus in the ER. Blood pressure stable at this time. Will monitor blood pressure closely. Electrolyte protocol in place. CT scan showing 3 x 1.7 cm soft tissue mass along left lateral margin of the left pulmonary artery with hilar adenopathy: Await recommendations by pulmonology. Adenopathy likely related to infectious process. Patient may need further workup of the soft tissue mass as an outpatient. GERD: Continue home medication of Pepcid. History of emphysema and former tobacco use: Patient no longer smokes. Continue with Dulera and ProAir. Patient may require medication at discharge Maintain oxygen above 93%. Patient will require home oxygen. Time Spent Managing Pts Care (In Minutes): 55
[2020-03-05] MEDS ORDERED: VITAMIN D 1000 UNIT TAB PO SCH (09:00)
[2020-03-05] MEDS ORDERED: ZINC SULFATE 220 MG CAP PO SCH (09:00)
[2020-03-05] MEDS ORDERED: THIAMINE HCL 100 MG TABLET PO SCH (09:00)
--- NOTE | 2020-03-05 10:23 | P.CNS ---
Date of Consult: 03/05/20 Primary Care Provider: Dr. Cooper; Pulmonary-Dr. Pereira Chief Complaint: Sood virus pneumonia History of Present Illness: Patient is 74 years of age was recently diagnosed with coronal virus/he was diagnosed on February 24 he has been complaining of some diarrhea although thus better he denies any shortness of breath currently has some cough congestion currently doing much better oxygenation satisfactory Allergies No Known Allergies Allergy (Unverified 10/26/16 13:29) Home Medications: Albuterol Sulfate [Proair Hfa] 2 puff IH Q6H PRN 03/04/20 Famotidine 1 tab PO DAILY 03/04/20 Nystatin 1 appl PO PRN PRN 03/04/20 - Past Medical/Surgical History Diabetic: No -: GERD -: Erectile dysfunction -: Emphysema -: Former tobacco use -: Graves disease -: Back surgeries -: Cataract Psychosocial/ Personal History: Patient is - Family History Father Medical History: Cancer Notes: had lung cancer - Social History Smoking Status: Current every day smoker Alcohol use: No CD- Drugs: No Caffeine use: No Place of Residence: Home Review of Systems 10-point ROS is otherwise unremarkable General: Weakness Respiratory: Shortness of Breath Physical Examination Temp Pulse Resp BP Pulse Ox 97.8 F 102 H 21 H 102/90 91 03/05/20 08:34 03/05/20 08:34 03/05/20 08:34 03/05/20 08:34 03/05/20 08:34 General: Alert, In no apparent distress, Oriented x3, Oriented x2 Respiratory: Crackles/rales Cardiovascular: No edema, Regular rate/rhythm Laboratory Data (last 24 hrs) 03/04/20 12:30: PT 13.0 H, INR 1.10 03/04/20 12:30: WBC 7.5 D, Hgb 14.9, Hct 44.4, Plt Count 200 D 03/04/20 12:30: Sodium 141, Potassium 4.0, BUN 36 H, Creatinine 1.32 H, Glucose 102, Magnesium 2.3, Total Bilirubin 0.7, AST 56 H, ALT 27, Alkaline Phosphatase 54 - Problems (1) Pneumonia due to human coronavirus Current Visit: Yes Status: Acute Plan: Patient is 74 years of age admitted with pneumonia due to sood virus is doing much better evaluate for home O2 as is feeling better discharge on prednisone 20 b.i.d. for a week then 10 b.i.d. 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
--- NOTE | 2020-03-05 10:41 | P.DS ---
Admission Date: 03/04/20 Discharge Date: 03/05/20 Primary Care Provider: Dr. Cooper; Pulmonary-Dr. Pereira Disposition: ROUTINE DISCHARGE Discharge Condition: GOOD Reason for Admission: Sood virus pneumonia Consultations: Pulmonary-Dr. Pereira Procedures: CT Scan: FINDINGS: No pulmonary emboli are identified. The aorta as imaged shows no acute or suspicious finding. No pericardial thickening or effusion. Patient has underlying interstitial fibrotic change and emphysematous changes in the lung king. Peripheral ground-glass opacification present in the upper lobes and lower lobes. Right middle lobe is generally spared. No cavitation or mass lesion. No pleural effusion or pleural thickening. A 3.0 x 1.7 centimeter soft tissue mass is present along the left lateral margin of the left pulmonary artery. This was not seen on prior imaging. A few additional minimal bilateral hilar lymph nodes are present. No chest wall masses or abnormal axillary lymphadenopathy. IMPRESSION: No pulmonary emboli identified. Bilateral ground-glass opacification in a pattern commonly described in COVID-19 pneumonia. Mediastinal and hilar lymphadenopathy most likely reactive. Medical Problem List: Fatigue, shortness of breath secondary to bilateral COVID 19 pneumonia with hypoxia Recent diarrhea with mild acute renal injury likely dehydration CT scan showing 3 x 1.7 cm soft tissue mass along left lateral margin of the left pulmonary artery with hilar adenopathy GERD History of emphysema and former tobacco use Brief History of Present Illness: 74-year-old male with history of GERD, emphysema. Patient reports that he tested positive for COVID 19 on February 24. He was given results on the . Patient was actually seen in the ER a couple a days ago for diarrhea. He was evaluated and sent home at that time. Since that time the diarrhea has improved. He does report increased fatigue, shortness of breath. Patient has history of emphysema and uses at a rescue inhaler. Patient denies any chest pain. Some cough, congestion noted nausea vomiting. Poor oral intake noted. His tested negative. He came to the ER for further evaluation. In the ER patient was evaluated. Initial blood pressure within normal range. White count 7.5, hemoglobin 14.9. Sodium 141, potassium 4.0. BUN of 36, creatinine 1.3, GFR 53 and glucose 102. Pro calcitonin within normal range 0.2. Lactic acid 2.3. Chest x-ray showed bilateral infiltrate indicative of COVID 19. Patient was given fluid bolus in the ER due to repeat blood pressure being low. Thereafter blood pressure has stabilize. Patient admitted for further evaluation and treatment. When I saw the patient ER, patient stable with present. Patient was going to get IV Solu-Medrol. Hospital Course: Patient presented with fatigue, shortness of breath secondary to bilateral COVID 19 pneumonia with hypoxia. Patient was recently diagnosed. Patient required hospitalization and oxygen. During the course of his stay his condition i mproved. Patient received IV Solu-Medrol with supplementation. Patient was seen and evaluated by pulmonology. At discharge patient without significant tachypnea or shortness of breath. Patient does require oxygen. Home oxygen will be arranged to maintain sats above 93%. Patient currently on 2 L. at discharge patient will continue with prednisone 20 mg 1 pill twice daily for 1 week then 10 mg twice daily until done. Patient will also be discharged with Eliquis 5 mg 1 pill daily due to risk of blood clots related to COVID. At discharge patient may continue with zinc 1 pill daily, thiamine 100 mg daily, melatonin 3 mg at bedtime, vitamin-C twice daily, and vitamin-D daily. Recommend follow up with pulmonology within 1 week. Further adjustment in medication can be done by pulmonology. Prior to discharge home oxygen will be arranged as stated above. Education on COVID 19 including isolation will be provided. Patient to continue with face mask use and hand washing. It is recommended that he lie prone at night to help with his COVID 19 infection. Encourage oral intake at home CT scan also revealed a 3 x 1.7 cm soft tissue mass along the left lateral margin of the left pulmonary artery with hilar adenopathy. Pulmonology evaluated CT scan pulmonology plans for repeat CT scan in 1 month to further evaluate. Patient with GERD. At discharge patient may continue with Pepcid 40 mg once daily. Vital Signs/Physical Exam: Temp Pulse Resp BP Pulse Ox 97.8 F 102 H 21 H 102/90 91 03/05/20 08:34 03/05/20 08:34 03/05/20 08:34 03/05/20 08:34 03/05/20 08:34 General: Alert, In no apparent distress, Oriented x3, Cooperative HEENT: Atraumatic Neck: Supple Respiratory: Normal air movement Cardiovascular: Normal pulses, Regular rate/rhythm Gastrointestinal: No tenderness Neurological: Normal speech, Normal strength at 5/5 x4 extr, Normal tone, Normal affect Laboratory Data at Discharge: WBC 5.3 K/uL (4.3-10.9) D 03/05/20 05:10 Hgb 15.4 g/dL (13.6-17.9) 03/05/20 05:10 Hct 45.6 % (39.6-49.0) 03/05/20 05:10 Plt Count 210 K/uL (152-406) 03/05/20 05:10 PT 13.0 SECONDS (9.5-12.5) H 03/04/20 12:30 INR 1.10 03/04/20 12:30 Sodium 142 mmol/L (136-145) 03/05/20 05:10 Potassium 4.4 mmol/L (3.5-5.1) 03/05/20 05:10 BUN 33 mg/dL (7-18) H 03/05/20 05:10 Creatinine 1.09 mg/dL (0.55-1.3) 03/05/20 05:10 Glucose 145 mg/dL (74-106) H 03/05/20 05:10 Magnesium 2.4 mg/dL (1.8-2.4) 03/05/20 05:10 Total Bilirubin 0.7 mg/dL (0.2-1.0) 03/04/20 12:30 AST 56 U/L (15-37) H 03/04/20 12:30 ALT 27 U/L (12-78) 03/04/20 12:30 Alkaline Phosphatase 54 U/L (45-117) 03/04/20 12:30 Home Medications: Albuterol Sulfate [Proair Hfa] 2 puff IH Q6H PRN 03/04/20 Famotidine 1 tab PO DAILY 03/04/20 Nystatin 1 appl PO PRN PRN 03/04/20 Apixaban [Eliquis] 5 mg PO BID #60 tablet 03/05/20 Ascorbic Acid [Vitamin C*] 500 mg PO BID #60 tablet 03/05/20 Cholecalciferol (Vitamin D3) [Vitamin D 1000 Iu Tab*] 1,000 unit PO DAILY #30 tab 03/05/20 Melatonin [Melatonin*] 3 mg PO BEDTIME #30 tablet 03/05/20 Thiamine HCl [Vitamin B-1*] 100 mg PO DAILY #30 tablet 03/05/20 Zinc Sulfate [Zinc Sulfate*] 220 mg PO DAILY #30 cap 03/05/20 predniSONE [Prednisone] 20 mg PO SEECOM #21 tablet 03/05/20 New Medications: Apixaban [Eliquis] 5 mg PO BID #60 tablet Melatonin [Melatonin*] 3 mg PO BEDTIME #30 tablet predniSONE [Prednisone] 20 mg PO SEECOM #21 tablet Thiamine HCl [Vitamin B-1*] 100 mg PO DAILY #30 tablet Ascorbic Acid [Vitamin C*] 500 mg PO BID #60 tablet Cholecalciferol (Vitamin D3) [Vitamin D 1000 Iu Tab*] 1,000 unit PO DAILY #30 tab Zinc Sulfate [Zinc Sulfate*] 220 mg PO DAILY #30 cap Patient Discharge Instructions: 1. Follow up with PCP within 1 week. 2. Patient presented with fatigue, shortness of breath secondary to bilateral COVID 19 pneumonia with hypoxia. Patient was recently diagnosed. Patient required hospitalization and oxygen. During the course of his stay his condition improved. Patient received IV Solu-Medrol with supplementation. Patient was seen and evaluated by pulmonology. At discharge patient without significant tachypnea or shortness of breath. Patient does require oxygen. Home oxygen will be arranged to maintain sats above 93%. Patient currently on 2 L. at discharge patient will continue with prednisone 20 mg 1 pill twice daily for 1 week then 10 mg twice daily until done. Patient will also be discharged with Eliquis 5 mg 1 pill daily due to risk of blood clots related to COVID. At discharge patient may continue with zinc 1 pill daily, thiamine 100 mg daily, melatonin 3 mg at bedtime, vitamin-C twice daily, and vitamin-D daily. Recommend follow up with pulmonology within 1 week. Further adjustment in medication can be done by pulmonology. Prior to discharge home oxygen will be arranged as stated above. Education on COVID 19 including isolation will be provided. Patient to continue with face mask use and hand washing. It is recommended that he lie prone at night to help with his COVID 19 infection. Encourage oral intake at home. 3. CT scan also revealed a 3 x 1.7 cm soft tissue mass along the left lateral margin of the left pulmonary artery with hilar adenopathy. Pulmonology evaluated CT scan pulmonology plans for repeat CT scan in 1 month to further evaluate. 4. Patient with GERD. At discharge patient may continue with Pepcid 40 mg once daily. Diet: AHA Activity: Ad tash Followup: Tristan Cooper MD [Primary Care Provider] - Time spent managing pt's care (in minutes): 55
[2020-03-05 11:06] VITALS: O2SAT 93
[2020-03-05 11:14] VITALS: TEMP 97.5
[2020-03-05 13:33] VITALS: BP 146/74
== END 2020-03-05 13:46 | disposition home or self-care (01) ==
LOC: ER 11:37 → ERHOLD 14:33 → 3RD-ICU 16:34
PROVIDERS: ADMIT Family Medicine; ATTEND Family Medicine
DX: U07.1 COVID-19 (principal); J12.89 Other viral pneumonia; R09.02 Hypoxemia; K21.9 Gastro-esophageal reflux disease without esophagitis; N17.9 Acute kidney failure, unspecified; E86.0 Dehydration; J43.9 Emphysema, unspecified; Z87.891 Personal history of nicotine dependence; E05.90 Thyrotoxicosis, unspecified without thyrotoxic crisis or storm; R91.8 Other nonspecific abnormal finding of lung field
CPT/HCPCS: 96365; 96361; 93005; 87040 ×2; 85025 ×2; 80048 ×2; 36415; 83735 ×2; 85610; 85379; 80076; 83605 ×2; 84484; 82728 ×2; 84145; 83880; 86140 ×2; 87804 ×2; 71275; 71045; 96375; 99285; 96366; U0002; Q9967; J0456; J1650 ×2; J1100; J0696 ×2; J7050 ×2; J7040; J2930 ×4; J2920; 81003; 81015; G0378; J7606

== ENCOUNTER 2020-03-08 11:15 | Emergency (ER) | payer OTHER ==
--- OUTSIDE RECORDS SUMMARY | 2020-03-08 11:17 | XMS REPORT | Continuity of Care Document ---
:1945 Author Organization [facility] t Address [address] [place] [address] Care Team Providers Name Role Phone Pcp, [...] Facility Department ID 2020-02-27 2020-02-27 Telephone Pcp, [facility] [id number] 00:00:00 00:00:00 Patient Health [id number] Does Not Surgical [id number] Have A Specialti [phone] [address] 2020-02-25 2020-02-25 Laboratory Lab, [facility] [id number] 15:37:19 15:57:19 Only Fam Pob I Health [id number] [place] [id number] Professio [phone] [address] 2019-12-26 2019-12-26 Laboratory Lab, [facility] [id number] 17:17:23 17:37:23 Only Fam Pob I Health [id number] [place] [id number] Professio [phone] [address] 2019-12-26 2019-12-26 Orders Doctor SHAW [id number] 00:00:00 00:00:00 Only Unassigned, VASQUEZ [id number] [place] [facility] [id number] Results This patient has no known results.
[2020-03-08] MEDS ORDERED: NA CHLORIDE 0.9% 500 ML ONE (12:11)
[2020-03-08 12:32] LABS: Absolute Lymphocytes (CBC) 0.8 K/uL (0.7-4.9); Basophils % 0.1 % (0-1.3); Hematocrit 48.1 % (39.6-49.0); Lymphocytes % 8.8 % (15.3-44.8); MPV 8.7 fL (7.6-11.3); RBC Red Blood Cell Count 5.53 M/uL (4.33-5.43)
[2020-03-08 12:45] LABS: Bilirubin Total 1.3 mg/dL (0.2-1.0); Potassium 3.8 mmol/L (3.5-5.1); Protein, Total 7.3 g/dL (6.4-8.2)
[2020-03-08 12:51] LABS: Blood Morphology Comment NOT SEEN (NOT SEEN); Platelet Estimate ADEQ; White Blood Cell Scan OK (OK)
[2020-03-08 13:25] LABS: Urine Blood NEGATIVE (NEG); Urine Glucose NEGATIVE (NEG); Urine Protein 1+ (NEG)
--- NOTE | 2020-03-08 13:33 | RAD REPORT ---
EXAM DESCRIPTION: RAD - Chest Single View - 03/08/2020 12:06 pm CLINICAL HISTORY: weakness, sobpositive COVID test COMPARISON: March 04 TECHNIQUE: AP portable chest image was obtained 03/08/2020 12:06 pm . FINDINGS: Patchy alveolar opacities are present throughout both lung king. Pattern is similar or f ractionally worse than the prior study. Interval change is minimal. The pattern is consistent with a COVID-19 pneumonia. Heart and vasculature are normal. No measurable pleural effusion and no pneumotho rax. No acute bony abnormality seen. No acute aortic findings suspected. IMPRESSION: Bilateral airspace infiltrates similar or slightly worse than March 04. Lung pattern is consistent with a COVID-19 pneumonia.
--- NOTE | 2020-03-08 13:48 | RAD REPORT ---
EXAM DESCRIPTION: CT - Chest For Pe Angio - 03/08/2020 1:39 pm CLINICAL HISTORY: weakness, shortness of breath COMPARISON: Chest For Pe Angio dated 03/04/2020 TECHNIQUE: Dynamically enhanced 3 mm thick images of the chest were obtained during administration o f approximately 150mL Isovue 370 IV contrast. Coronal and oblique MIP reconstruction images were gene rated and reviewed. Exam utilizes a protocol to evaluate the pulmonary arterial tree. All CT scans are performed using dose optimization technique as appropriate and may include automated exposure control or mA/KV adjustment according to patient size. FINDINGS: No pulmonary emboli are identified. The aorta as imaged shows no acute or suspicious finding. No pericardial thickening or effusion. Bilateral peripheral airspace opacities are present. This is a well described COVID-19 pneumonia lorri rachelle. No cavitation or dense consolidation. Pattern not substantially different from March 04. No p leural effusion or pleural thickening. No mediastinal or hilar suspicious masses. No chest wall masses or abnormal axillary lymphadenopathy. IMPRESSION: No pulmonary emboli identified. Mild to moderate severity bilateral COVID-19 pneumonia pattern not substantially different from .
--- NOTE | 2020-03-08 14:52 | EDPHYS ---
Physician Documentation [facility] Name: Ricky Goetz Age: 74 yrs Sex: Male : 1945 Arrival Date: 03/08/2020 Time: 11:17 Bed 13 Private MD: ED Physician Atul Waterman HPI: 03/08 11:42 This 74 yrs old Male presents to ER via Wheelchair with complaints of Covid jmm 19 +, Weakness. 11:42 The patient has shortness of breath at rest. Onset: The symptoms/episode began/occurred jmm gradually. Duration: The symptoms are continuous. The patient's shortness of breath is aggravated by nothing, is alleviated by nothing. This is a 74 year old male with a history of COPD, GERD, Asthma that presents to the ED with complaints of cough, shortness of breath, generalized weakness since discharge. Patient does have home O2. Historical: - Allergies: 11:37 No Known Allergies; iw - PMHx: 11:37 Asthma; COPD; Emphysema; GERD; Grave's dx; iw - PSHx: 11:37 cataract removed; back sx x3; iw - Immunization history:: Adult Immunizations up to date, Pneumococcal vaccine is up to date, Flu vaccine is up to date. - Social history:: Smoking status: Patient/guardian denies using tobacco, the patient reports quitting approximately 10 years ago. ROS: 11:42 Cardiovascular: Negative for chest pain, palpitations, and edema, Respiratory: Negative jmm for shortness of breath, cough, wheezing, and pleuritic chest pain. 11:42 Constitutional: Positive for fatigue. 11:42 Neuro: Positive for weakness. 11:42 All other systems are negative. Exam: 11:42 Constitutional: This is a well developed, well nourished patient who is awake, alert, jmm and in no acute distress. Head/Face: atraumatic. Eyes: EOMI, no conjunctival erythema appreciated ENT: Moist Mucus Membranes Neck: Trachea midline, Supple Chest/axilla: Normal chest wall appearance and motion. Cardiovascular: Regular rate and rhythm. No edema appreciated Respiratory: Normal respirations, no respiratory distress appreciated Abdomen/GI: Non distended, soft Back: Normal ROM Skin: General appearance color normal MS/ Extremity: Moves all extremities, no obvious deformities appreciated, no edema noted to the lower extremities Neuro: Awake and alert, normal gait Psych: Behavior is normal, Mood is normal, Patient is cooperative and pleasant Vital Signs: 11:30 BP 138 / 78; ca1 11:37 Pulse 87; Resp 18; Temp 97.6; Pulse Ox 99% on R/A; iw 12:09 Pulse Ox 88% on R/A; ca1 12:40 BP 134 / 66; Pulse 69; Resp 20 S; Pulse Ox 98% on 4 lpm NC; ca1 13:30 BP 122 / 63; Pulse 62; Resp 20 S; Pulse Ox 94% on 4 lpm NC; ca1 14:42 BP 134 / 72; Pulse 81; Resp 19 S; Pulse Ox 99% on 4 lpm NC; ca1 15:09 BP 143 / 89; Pulse 79; Resp 20; Pulse Ox 95% on R/A; ca1 MDM: 11:42 Patient medically screened. [facility] 14:48 Data reviewed: vital signs, nurses notes. Counseling: I had a detailed discussion with hue the patient and/or guardian regarding: the historical points, exam findings, and any diagnostic results supporting the discharge/admit diagnosis, lab results, radiology results, the need for outpatient follow up, to return to the emergency department if symptoms worsen or persist or if there are any questions or concerns that arise at home. ED course: Patient is alert and non toxic in appearance in the ED. Patient states feeling much better in the ED. Patient has O2 at home. I discussed the patient with Dr. Cooper whom advised to call his clinic tomorrow afternoon. I discussed this with the patient and family whom agrees with the plan of care. . 03/08 11:43 Order name: CBC with Diff; Complete Time: 13:05 [facility] 03/08 11:43 Order name: CMP; Complete Time: 13:05 [facility] 03/08 11:42 Order name: Chest Single View XRAY; Complete Time: 13:34 [facility] 03/08 11:43 Order name: Blood Culture Adult (2) [facility] 03/08 12:51 Order name: CBC Smear Scan; Complete Time: 13:05 [facility] 03/08 13:01 Order name: Urine Dipstick--Ancillary (enter results); Complete Time: 13:26 03/08 11:42 Order name: Saline Lock; Complete Time: 12:13 [facility] 03/08 11:43 Order name: Urine Dipstick-Ancillary (obtain specimen); Complete Time: 12:53 [facility] 03/08 13:06 Order name: CT Chest For PE Angio; Complete Time: 13:50 [facility] Administered Medications: 12:14 Drug: NS 0.9% 500 ml Route: IV; Rate: bolus; Site: right antecubital; ca1 13:00 Follow up: Response: No adverse reaction; IV Status: Completed infusion; IV Intake: ca1 500ml Disposition: 15:42 Co-signature as Attending Physician, Atul Waterman MD. rn Disposition: 03/08/20 14:50 Discharged to Home. Impression: Malaise and fatigue, Dehydration. - Condition is Stable. - Discharge Instructions: Dehydration, Elderly, COVID-19. - Medication Reconciliation Form, Thank You Letter, Antibiotic Education, Prescription Opioid Use form. - Follow up: Private Physician; When: Tomorrow; Reason: Recheck today's complaints, Continuance of care, Re-evaluation by your physician. Signatures: Dispatcher [employer] EDJason Spain PA PA [facility] Lala Zendejas, RN Atul Miles MD MD rn AcobBarbara RN RN ca1 Corrections: (The following items were deleted from the chart) 15:09 14:50 03/08/2020 14:50 Discharged to Home. Impression: Malaise and fatigue; ca1 Dehydration. Condition is Stable. Forms are Medication Reconciliation Form, Thank You Letter, Antibiotic Education, Prescription Opioid Use. Follow up: Private Physician; When: Tomorrow; Reason: Recheck today's complaints, Continuance of care, Re-evaluation by your physician. [facility]
--- NOTE | 2020-03-08 14:52 | ER ---
Nurse's Notes [facility] Name: Ricky Goetz Age: 74 yrs Sex: Male : 1945 Arrival Date: 03/08/2020 Time: : Bed 13 Private MD: Diagnosis: Malaise and fatigue;Dehydration Presentation: 03/08 11:27 Chief complaint: Patient states: tested positive for COVID on 02-24 in [place], was iw seen here on 03-04, was told he has COVID pneumonia and was kept overnight, is still having a lot of SOB and pain everywhere, pain in chest and legs and shoulders , no fever, mild cough , mild diarrhea. 11:27 Method Of Arrival: Wheelchair iw 11:29 Coronavirus screen: Client presents with at least one sign or symptom that may indicate iw coronavirus-19. Standard/surgical mask placed on the client. Provider contacted for isolation considerations. Client reports previous positive COVID test result. Ebola Screen: Patient negative for fever greater than or equal to 101.5 degrees Fahrenheit, and additional compatible Ebola Virus Disease symptoms Patient denies exposure to infectious person. Patient denies travel to an Ebola-affected area in the 21 days before illness onset. No symptoms or risks identified at this time. Onset of symptoms was February 25, 2020. 11:29 Acuity: NANNETTE 3 iw 11:30 Risk Assessment: Do you want to hurt yourself or someone else? Patient reports no ca1 desire to harm self or others. 11:30 Initial Sepsis Screen: Does the patient meet any 2 criteria? No. Patient's initial ca1 sepsis screen is negative. Does the patient have a suspected source of infection? No. Patient's initial sepsis screen is negative. Historical: - Allergies: 11:37 No Known Allergies; iw - PMHx: 11:37 Asthma; COPD; Emphysema; GERD; Grave's dx; iw - PSHx: 11:37 cataract removed; back sx x3; iw - Immunization history:: Adult Immunizations up to date, Pneumococcal vaccine is up to date, Flu vaccine is up to date. - Social history:: Smoking status: Patient/guardian denies using tobacco, the patient reports quitting approximately 10 years ago. Screenin:45 Abuse screen: Denies threats or abuse. Denies injuries from another. Nutritional ca1 screening: No deficits noted. Tuberculosis screening: No symptoms or risk factors identified. Fall Risk IV access (20 points). Gait- Weak (10 pts.). Total Morales Fall Scale indicates Low Risk Score (25-44 pts). Fall prevention measures have been instituted. Side Rails Up X 2 Family Present and informed to notify staff if they need to leave bedside As available Patient and Family Educated on Fall Prevention Program and strategies. Assessment: 11:45 General: Appears in no apparent distress. uncomfortable, Behavior is calm, cooperative, ca1 appropriate for age, Reports chills for feeling ill for fatigue for >3 days. Pain: Denies pain. Neuro: Level of Consciousness is awake, alert, obeys commands, Oriented to person, place, time, situation. Cardiovascular: Heart tones S1 S2 present Capillary refill < 3 seconds Patient's skin is warm and dry. Respiratory: Reports shortness of breath at rest Airway is patent Respiratory effort is even, unlabored, Respiratory pattern is regular, symmetrical. GI: Abdomen is flat, non-distended, Bowel sounds present X 4 quads. Abd is soft and non tender X 4 quads. : No signs and/or symptoms were reported regarding the genitourinary system. EENT: No signs and/or symptoms were reported regarding the EENT system. Derm: Skin is intact, is fragile, is thin, with poor turgor Skin is pink, warm \T\ dry. Musculoskeletal: Circulation, motion, and sensation intact. Capillary refill < 3 seconds. 12:40 Reassessment: Patient appears in no apparent distress at this time. Patient and/or ca1 family updated on plan of care and expected duration. Pain level reassessed. Patient is alert, oriented x 3, equal unlabored respirations, skin warm/dry/pink. 13:40 Reassessment: Patient appears in no apparent distress at this time. Patient and/or ca1 family updated on plan of care and expected duration. Pain level reassessed. Patient is alert, oriented x 3, equal unlabored respirations, skin warm/dry/pink. 14:42 Reassessment: Patient appears in no apparent distress at this time. Patient and/or ca1 family updated on plan of care and expected duration. Pain level reassessed. Patient is alert, oriented x 3, equal unlabored respirations, skin warm/dry/pink. Vital Signs: 11:30 BP 138 / 78; ca1 11:37 Pulse 87; Resp 18; Temp 97.6; Pulse Ox 99% on R/A; iw 12:09 Pulse Ox 88% on R/A; ca1 12:40 BP 134 / 66; Pulse 69; Resp 20 S; Pulse Ox 98% on 4 lpm NC; ca1 13:30 BP 122 / 63; Pulse 62; Resp 20 S; Pulse Ox 94% on 4 lpm NC; ca1 14:42 BP 134 / 72; Pulse 81; Resp 19 S; Pulse Ox 99% on 4 lpm NC; ca1 15:09 BP 143 / 89; Pulse 79; Resp 20; Pulse Ox 95% on R/A; ca1 ED Course: 11:17 Patient arrived in ED. bg2 11:30 Triage completed. iw 11:31 Jason Helton PA is PHCP. jmm 11:31 Atul Waterman MD is Attending Physician. jmm 11:45 Patient has correct armband on for positive identification. Placed in gown. Bed in low ca1 position. Call light in reach. Side rails up X2. Pulse ox on. NIBP on. Warm blanket given. 11:45 Arm band placed on. ca1 11:49 Barbara Lovelace, RN is Primary Nurse. ca1 12:06 Chest Single View XRAY In Process Unspecified. EDMS 12:10 Oxygen administration via nasal cannula \T\ 4L/min Response to oxygen therapy: symptoms ca1 improved. 12:12 Inserted saline lock: 22 gauge in right antecubital area, using aseptic technique. ca1 Blood collected. 12:12 No provider procedures requiring assistance completed. Initial lab(s) drawn, by ri, ca1 sent to lab. First set of blood cultures drawn by ri. 12:21 Second set of blood cultures drawn by ri. ca1 12:22 Inserted. ca1 13:39 CT Chest For PE Angio In Process Unspecified. EDMS 15:09 IV discontinued, intact, bleeding controlled, No redness/swelling at site. Pressure ca1 dressing applied. Administered Medications: 12:14 Drug: NS 0.9% 500 ml Route: IV; Rate: bolus; Site: right antecubital; ca1 13:00 Follow up: Response: No adverse reaction; IV Status: Completed infusion; IV Intake: ca1 500ml Intake: 13:00 IV: 500ml; Total: 500ml. ca1 Outcome: 14:50 Discharge ordered by MD. swann 15:09 Discharged to home via wheelchair, with significant other. ca1 15:09 Condition: stable 15:09 Discharge instructions given to patient, Instructed on discharge instructions, follow up and referral plans. Demonstrated understanding of instructions, follow-up care. 15:09 Patient left the ED. ca1 Signatures: Dispatcher [employer] EDMS Jason Helton PA PA jmm Williams, Irene, RN RN Beth Schuster [facility] Barbara Lovelace RN RN ca1 Corrections: (The following items were deleted from the chart) 14:42 13:40 Reassessment: Patient appears in no apparent distress at this time. ca1 ca1
[2020-03-08 18:13] VITALS: TEMP 97.6
[2020-03-08 18:22] VITALS: BP 143/89; O2SAT 95
== END 2020-03-08 15:09 | disposition home or self-care (01) ==
LOC: ER 11:15
DX: U07.1 COVID-19 (principal); E86.0 Dehydration; J43.9 Emphysema, unspecified; E05.90 Thyrotoxicosis, unspecified without thyrotoxic crisis or storm; K21.9 Gastro-esophageal reflux disease without esophagitis; Z87.891 Personal history of nicotine dependence; R53.81 Other malaise; Z99.81 Dependence on supplemental oxygen
CPT/HCPCS: 87040 ×2; 85025; 36415; 81003; 80053; 71275; 71045; 96360; 99284; Q9967; J7040

== ENCOUNTER 2021-10-08 08:41 | Emergency (ER) | payer OTHER ==
--- NOTE | 2021-10-08 09:18 | EDPHYS ---
Physician Documentation [facility] Name: Ricyk Goetz Age: 75 yrs Sex: Male : 1945 Arrival Date: 10/08/2021 Time: 08:43 Bed 6 Private MD: ED Physician Santy Downing HPI: 10/08 09:16 This 75 yrs old Male presents to ER via Ambulatory with complaints of Foreign Body In pm1 Ear. 09:16 The patient presents with a foreign body sensation, piece of his hearing aid. The pm1 complaints affect the right ear. Onset: The symptoms/episode began/occurred this morning. Modifying factors: The symptoms are alleviated by nothing, the symptoms are aggravated by nothing. Associated signs and symptoms: The patient has no apparent associated signs or symptoms. Severity of symptoms: in the emergency department the symptoms are unchanged. The patient has not experienced similar symptoms in the past. The patient has not recently seen a physician. patient was removing his hearing aid and the rubber attachment piece got loose and is stuck in his right ear. Historical: - Allergies: 08:59 No Known Allergies; vg1 - PMHx: 08:59 Asthma; COPD; Emphysema; GERD; Grave's dx; vg1 - Immunization history:: Client reports receiving the 2nd dose of the Covid vaccine. - Social history:: Smoking status: Patient denies any tobacco usage or history of. ROS: 09:16 Constitutional: Negative for fever, chills, and weight loss. pm1 09:16 MS/Extremity: Negative for injury and deformity, Skin: Negative for injury, rash, and discoloration, Neuro: Negative for headache, weakness, numbness, tingling, and seizure. 09:16 ENT: Positive for foreign body sensation, Negative for ear pain. 09:16 All other systems are negative. Exam: 09:16 Constitutional: This is a well developed, well nourished patient who is awake, alert, pm1 and in no acute distress. Head/Face: Normocephalic, atraumatic. 09:16 Skin: Warm, dry with normal turgor. Normal color with no rashes, no lesions, and no evidence of cellulitis. MS/ Extremity: Pulses equal, no cyanosis. Neurovascular intact. Full, normal range of motion. 09:16 ENT: Ear canal(s): foreign body, small clear cup shaped object completely filling the ear canal, in the right external ear canal, Examination of the other ear shows no obvious abnormality. 09:16 Cardiovascular: Exam negative for acute changes, Rate: normal, Rhythm: regular, Pulses: no pulse deficits are appreciated. 09:16 Respiratory: Exam negative for acute changes, respiratory distress, shortness of breath. 09:16 Neuro: Exam negative for acute changes, Orientation: is normal, Mentation: is normal, Motor: moves all fours, Gait: is steady, at a normal pace, without difficulty. Vital Signs: 08:58 BP 124 / 86; Pulse 80; Resp 16; Temp 98.2; Pulse Ox 99% on R/A; Weight 72.57 kg; Height vg1 5 ft. 10 in. (177.80 cm); Pain 2/10; 08:58 Body Mass Index 22.96 (72.57 kg, 177.80 cm) vg1 Procedures: 09:16 Foreign Body Removal: rubber piece from hearing aid, from the right ear canal, by using pm1 alligator clamps, The patient tolerated the removal well. MDM: 09:06 Patient medically screened. pm1 09:16 Data reviewed: vital signs. Data interpreted: Pulse oximetry: on room air is 99 %. pm1 Interpretation: normal. 09:16 Counseling: I had a detailed discussion with the patient and/or guardian regarding: the pm1 historical points, exam findings, and any diagnostic results supporting the discharge/admit diagnosis, the need for outpatient follow up, to return to the emergency department if symptoms worsen or persist or if there are any questions or concerns that arise at home. Administered Medications: No medications were administered Disposition: 16:20 Co-signature as Attending Physician, Santy Downing MD I agree with the assessment and kdr plan of care. Disposition Summary: 10/08/21 09:17 Discharge Ordered Location: Home pm1 Problem: new pm1 Symptoms: have improved pm1 Condition: Stable pm1 Diagnosis - Foreign body in right ear pm1 Followup: pm1 - With: Emergency Department - When: As needed - Reason: Worsening of condition Followup: pm1 - With: Private Physician - When: 2 - 3 days - Reason: Recheck today's complaints, Continuance of care, Re-evaluation by your physician Discharge Instructions: - Discharge Summary Sheet pm1 - Ear Foreign Body pm1 Forms: - Medication Reconciliation Form pm1 - Thank You Letter pm1 - Antibiotic Education pm1 - Prescription Opioid Use pm1 Prescriptions: - Hydrocortisone/neomycin/polymyxin 10mg(1%)/3.5mg(0.35%)/[id number]/10mL otic - instill 4 drop by OTIC route every 6 hours for 7 days; 10 milliliter; Refills: pm1 0, Product Selection Permitted Signatures: Santy Downing MD MD kdr Marinas, Patrick, NP ESTIMATING MANAGER pm1 Virginia Rodriguez RN RN vg1
--- NOTE | 2021-10-08 09:18 | ER ---
Nurse's Notes [facility] Name: Ricky Goetz Age: 75 yrs Sex: Male : 1945 Arrival Date: 10/08/2021 Time: 08:43 Bed 6 Private MD: Diagnosis: Foreign body in right ear Presentation: 10/08 08:58 Chief complaint: Patient states: "I think the small plastic piece from my hearing aid vg1 is in my Right ear". Coronavirus screen: Vaccine status: Patient reports receiving the 2nd dose of the covid vaccine. Client denies travel out of the [place] in the last 14 days. Ebola Screen: Patient denies exposure to infectious person. Patient denies travel to an Ebola-affected area in the 21 days before illness onset. Initial Sepsis Screen: Does the patient meet any 2 criteria? No. Patient's initial sepsis screen is negative. Does the patient have a suspected source of infection? No. Patient's initial sepsis screen is negative. Risk Assessment: Do you want to hurt yourself or someone else? Patient reports no desire to harm self or others. Onset of symptoms was October 07, 2021. 08:58 Method Of Arrival: Ambulatory vg1 08:58 Acuity: NANNETTE 4 vg1 Triage Assessment: 08:59 General: Appears comfortable, Behavior is calm, cooperative. Pain: Complains of pain in vg1 right ear Pain currently is 2 out of 10 on a pain scale. Historical: - Allergies: 08:59 No Known Allergies; vg1 - PMHx: 08:59 Asthma; COPD; Emphysema; GERD; Grave's dx; vg1 - Immunization history:: Client reports receiving the 2nd dose of the Covid vaccine. - Social history:: Smoking status: Patient denies any tobacco usage or history of. Screenin:00 Abuse screen: Denies threats or abuse. Denies injuries from another. Nutritional bp screening: No deficits noted. Tuberculosis screening: No symptoms or risk factors identified. Fall Risk None identified. Assessment: 09:00 General: SEE TRIAGE NOTE. bp 09:32 Reassessment: PT D/C HOME AMBULATORY, DX WITH FB IN EAR. bp Vital Signs: 08:58 BP 124 / 86; Pulse 80; Resp 16; Temp 98.2; Pulse Ox 99% on R/A; Weight 72.57 kg; Height vg1 5 ft. 10 in. (177.80 cm); Pain 2/10; 08:58 Body Mass Index 22.96 (72.57 kg, 177.80 cm) vg1 ED Course: 08:43 Patient arrived in ED. rg4 08:59 Triage completed. vg1 08:59 Arm band placed on. vg1 09:00 Patient has correct armband on for positive identification. Bed in low position. Call bp light in reach. Side rails up X2. 09:01 Reid Rasheed, RN is Primary Nurse. bp 09:06 Trell Nicholson NP is PHCP. pm1 09:06 Santy Downing MD is Attending Physician. pm1 09:32 No provider procedures requiring assistance completed. Patient did not have IV access bp during this emergency room visit. Administered Medications: No medications were administered Medication: 09:00 VIS not applicable for this client. bp Outcome: 09:17 Discharge ordered by MD. pm1 09:32 Discharged to home ambulatory. bp 09:32 Condition: stable 09:32 Discharge instructions given to patient, Instructed on discharge instructions, follow up and referral plans. medication usage, Demonstrated understanding of instructions, follow-up care, medications, Prescriptions given X 1. 09:33 Patient left the ED. bp Signatures: Trell Nicholson NP [id number] DEVELOPER pm1 Cony Rodriguez rg4 Reid Rasheed, RN RN Virginia Rodriguez RN RN 1
[2021-10-08 10:06] VITALS: BP 124/86; TEMP 98.2; O2SAT 99
== END 2021-10-08 09:33 | disposition home or self-care (01) ==
LOC: ER 08:41
PROC: 09C3XZZ Extirpation of Matter from Right External Auditory Canal, External Approach (ICD-10-PCS; principal; 2021-10-08)
DX: T16.1XXA Foreign body in right ear, initial encounter (principal)
CPT/HCPCS: 99282

== ENCOUNTER 2022-03-01 07:28 | Emergency (ER) | payer OTHER ==
--- OUTSIDE RECORDS SUMMARY | 2022-03-01 07:31 | XMS REPORT | Continuity of Care Document ---
:1945 Author Organization [facility] t Address [address] [place] [address] Care Team Providers Name Role Phone PCP, PATIENT DOES NOT HAVE A Primary Care Physician UnavailZunilda Moses Attending Clinician Unavailable PRABHU DONIS Attending Clinician Unavailable Prabhu Donis MD Attending Clinician Pcp, Patient Does Not Have A Attending Clinician [phone] SYDNEE WALKER Attending Clinician Unavailable Lab, Adc Fam Pob I Attending Clinician Unavailable Sydnee Ovalles Attending Clinician Unknown, Attending Attending Clinician Unavailable Doctor Unassigned, [place] Attending Clinician Unavailable Zunilda Helms Admitting Clinician Unavailable PRABHU DONIS Admitting Clinician Unavailable Prabhu Donis MD Admitting Clinician Payers Payer Name Policy Type Policy Number Effective Date Expiration Date Taran gomez MEDICARE PART A [id number] 2009 \T\ B 00:00:00 [employer] INDEMNITY [id number] 2013 00:00:00 Problems This patient has no known problems. Allergies, Adverse Reactions, Alerts Allergy Allergy Status Severity Reaction(s) Onset Inactive Treating Comm ents Source Name Type Date Date Clinician No Known DA Active U 2021-04 [facility] Allergie 04-20 Clear s 00:00: Roe 00 [facility] NO KNOWN Drug Active Univers ALLERGIE Class ity of S [facility] Social History Social Habit Start Date Stop Date Quantity Comments Source History of Cigarette Smoker Universi ty of tobacco use [facility] Alcohol intake 2022-02-10 2022-02-10 0 /d [facility] 00:00:00 00:00:00 [facility] Exposure to 2022-01-29 2022-02-08 Not sure [facility] SARS-CoV-2 00:00:00 15:36:00 [facility] (event) [place] Tobacco use and 2017-09-25 2017-09-25 Smokeless tobacco Un iversity of exposure 00:00:00 00:00:00 non-user [facility] Tobacco Comment 2017-09-25 2017-09-25 Recently quit Univer sity of 00:00:00 00:00:00 smoking [facility] Sex Ass[birth year] At [birth year] Universit y of 00:00:00 00:00:00 [facility] Smoking Status Start Date Stop Date Source Ex-smoker 2017-09-25 00:00:00 2017-09-25 00:00:00 [facility] Medications Ordered Filled Start Stop Current Ordering Indication Dosage Frequency Signature Comments Components Source Medication Medication Date Date Medication? Clinician (SIG) Name Name iopamidol 2021-04- No [id number] 69mL 69 mL, Univers (ISOVUE 04-12 Intravenou ity o f 370-500 mL) 19:15: 18:17 s, ONCE, 1 [place] injection 00 :00 dose, On Medica l 69 mL Ludmila Branch 02/10/22 at 1415, Routine water for 2021-04- No PRN, Univers irrigation 04-11 Starting ity of irrigation 19:02: 19:52 on Mona s solution 00 :17 02/09/22 at Medic al 1402, Branch Until Mon02/09/22 at 1452, Routine, Intra-op simethicone 2021-04- No PRN, Unive rs (GAS RELIEF 04-11 Starting ity of (SIMETHICON 19:02: 19:52 on Mon [place] as E)) 40 00 :17 02/09/22 at Medical mg/0.6 mL 1402, Branch drops Until Mon02/09/22 at 1452, Routine, Intra-op lactated 2021-04- No [facility] - 11-02 mL/hr, ity of infusion 17:45: 17:39 1,000 mL, [place] as 1,000 mL 00 :00 IV Medical Infusion, Branch ONCE, 1 dose, On Mon02/09/22 at 1245, Routine, DSU Pre-op lactated 2021-04- No 1000mL at 42 [facility] rs ringers IV - 11-02 mL/hr, ity of infusion 17:45: 17:39 1,000 mL, [place] as 1,000 mL 00 :00 IV Medical Infusion, Branch ONCE, 1 dose, On Mon02/09/22 at 1245, Routine, DSU Pre-op omeprazole 2021-04 Yes 20mg Take 20 mg U nivers (PRILOSEC) 02 by mouth ity o f 20 mg 15:19: daily. [place] capsule 55 Medical Branch budesonide- 2021-04 Yes 2{puff} Inhale 2 Univers formoteroL 1-02 Puffs 2 ity of 160-4.5 15:19: (two) [place] mcg/actuati 55 times Medical on inhaler daily. Branch ALBUTEROL 2021-04 Yes Take by [facility] rs SULFATE 1-02 mouth. ity of (PROVENTIL 15:19: [place] ORAL) 55 Medical Branch sildenafil 2021-04 Yes 100mg Take 100 Un billy (VIAGRA) 1-02 mg by ity of 100 mg 15:19: mouth [place] tablet 55 weekly. Medical Branch albuterol 2021-04 Yes 2{puff} Inhale 2 U nivers 90 1-02 Puffs ity of mcg/actuati 15:19: every 6 [place] as on inhaler 55 (six) Medical hours as Branch needed for Wheezing or Shortness of Breath. ranitidine 2021-04 Yes 150mg Take 150 Un billy 150 mg 1-02 mg by ity of capsule 15:19: mouth [place] 55 daily. Medical Branch omeprazole 2021-04 Yes 20mg Take 20 mg U nivers (PRILOSEC) 1-02 by mouth ity o f 20 mg 15:19: daily. [place] capsule 55 Medical Branch budesonide- 2021-04 Yes 2{puff} Inhale 2 Univers formoteroL 1-02 Puffs 2 ity of 160-4.5 15:19: (two) [place] mcg/actuati 55 times Medical on inhaler daily. Branch ALBUTEROL 2021-04 Yes Take by Unive rs SULFATE 1-02 mouth. ity of (PROVENTIL 15:19: [place] ORAL) 55 Medical Branch sildenafil 2021-04 Yes 100mg Take 100 Un billy (VIAGRA) 1-02 mg by ity of 100 mg 15:19: mouth [place] tablet 55 weekly. Medical Branch albuterol 2021-04 Yes 2{puff} Inhale 2 U nivers 90 1-02 Puffs ity of mcg/actuati 15:19: every 6 [place] as on inhaler 55 (six) Medical hours as Branch needed for Wheezing or Shortness of Breath. ranitidine 2021-04 Yes 150mg Take 150 Un billy 150 mg 1-02 mg by ity of capsule 15:19: mouth [place] 55 daily. Medical Branch omeprazole 2021-04 Yes 20mg Take 20 mg U nivers (PRILOSEC) 1-02 by mouth ity o f 20 mg 15:19: daily. [place] capsule 55 Medical Branch budesonide- 2021-04 Yes 2{puff} Inhale 2 Univers formoteroL 1-02 Puffs 2 ity of 160-4.5 15:19: (two) [place] mcg/actuati 55 times Medical on inhaler daily. Branch ALBUTEROL 2021-04 Yes Take by Unive rs SULFATE 1-02 mouth. ity of (PROVENTIL 15:19: [place] ORAL) 55 Medical Branch sildenafil 2021-04 Yes 100mg Take 100 Un billy (VIAGRA) 1-02 mg by ity of 100 mg 15:19: mouth [place] tablet 55 weekly. Medical Branch albuterol 2021-04 Yes 2{puff} Inhale 2 U nivers 90 1-02 Puffs ity of mcg/actuati 15:19: every 6 [place] as on inhaler 55 (six) Medical hours as Branch needed for Wheezing or Shortness of Breath. ranitidine 2021-04 Yes 150mg Take 150 Un billy 150 mg 1-02 mg by ity of capsule 15:19: mouth [place] 55 daily. Medical Branch omeprazole 2021-04 Yes 20mg Take 20 mg U nivers (PRILOSEC) 1-02 by mouth ity o f 20 mg 15:19: daily. [place] capsule 55 Medical Branch budesonide- 2021-04 Yes 2{puff} Inhale 2 Univers formoteroL 1-02 Puffs 2 ity of 160-4.5 15:19: (two) [place] mcg/actuati 55 times Medical on inhaler daily. Branch ALBUTEROL 2021-04 Yes Take by Unive rs SULFATE 1-02 mouth. ity of (PROVENTIL 15:19: [place] ORAL) 55 Medical Branch sildenafil 2021-04 Yes 100mg Take 100 Un billy (VIAGRA) 1-02 mg by ity of 100 mg 15:19: mouth [place] tablet 55 weekly. Medical Branch albuterol 2021-04 Yes 2{puff} Inhale 2 U nivers 90 1-02 Puffs ity of mcg/actuati 15:19: every 6 [place] as on inhaler 55 (six) Medical hours as Branch needed for Wheezing or Shortness of Breath. ranitidine 2021-04 Yes 150mg Take 150 Un billy 150 mg 1-02 mg by ity of capsule 15:19: mouth [place] 55 daily. Medical Branch ALBUTEROL Yes Take by Unive rs SULFATE 6-20 mouth. ity of (PROVENTIL 19:41: [place] ORAL) 54 Medical Branch sildenafil Yes 100mg Take 100 Un billy (VIAGRA) 6-20 mg by ity of 100 mg 19:41: mouth [place] tablet 54 weekly. Medical Branch albuterol Yes 2{puff} Inhale 2 U nivers (PROAIR 6-20 Puffs ity of HFA) 90 19:41: every 6 [place] mcg/actuati 54 (six) Medical on inhaler hours as Branc h needed for Wheezing or Shortness of Breath. ranitidine Yes 150mg Take 150 Un billy 150 mg 6-20 mg by ity of capsule 19:41: mouth [place] 54 daily. Medical Branch omeprazole Yes 20mg Take 20 mg U nivers (PRILOSEC) 6-20 by mouth ity o f 20 mg 19:41: daily. [place] capsule 54 Medical Branch budesonide- 0 Yes 2{puff} Inhale 2 Univers formoterol 6-20 Puffs 2 ity of (SYMBICORT) 19:41: (two) [place] 160-4.5 54 times Medical mcg/actuati daily. Branch on inhaler ALBUTEROL Yes Take by Unive rs SULFATE 6-20 mouth. ity of (PROVENTIL 19:41: [place] ORAL) 54 Medical Branch sildenafil Yes 100mg Take 100 Un billy (VIAGRA) 6-20 mg by ity of 100 mg 19:41: mouth [place] tablet 54 weekly. Medical Branch albuterol Yes 2{puff} Inhale 2 U nivers (PROAIR 6-20 Puffs ity of HFA) 90 19:41: every 6 [place] mcg/actuati 54 (six) Medical on inhaler hours as Branc h needed for Wheezing or Shortness of Breath. ranitidine Yes 150mg Take 150 Un billy 150 mg 6-20 mg by ity of capsule 19:41: mouth [place] 54 daily. Medical Branch omeprazole Yes 20mg Take 20 mg U nivers (PRILOSEC) 6-20 by mouth ity o f 20 mg 19:41: daily. [place] capsule 54 Medical Branch budesonide- 0 Yes 2{puff} Inhale 2 Univers formoterol 6-20 Puffs 2 ity of (SYMBICORT) 19:41: (two) [place] 160-4.5 54 times Medical mcg/actuati daily. Branch on inhaler ALBUTEROL Yes Take by Unive rs SULFATE 6-20 mouth. ity of (PROVENTIL 19:41: [place] ORAL) 54 Medical Branch sildenafil 0 Yes 100mg Take 100 Un billy (VIAGRA) 6-20 mg by ity of 100 mg 19:41: mouth [place] tablet 54 weekly. Medical Branch albuterol Yes 2{puff} Inhale 2 U nivers (PROAIR 6-20 Puffs ity of HFA) 90 19:41: every 6 [place] mcg/actuati 54 (six) Medical on inhaler hours as Branc h needed for Wheezing or Shortness of Breath. ranitidine Yes 150mg Take 150 Un billy 150 mg 6-20 mg by ity of capsule 19:41: mouth [place] 54 daily. Medical Branch omeprazole Yes 20mg Take 20 mg U nivers (PRILOSEC) 6-20 by mouth ity o f 20 mg 19:41: daily. [place] capsule 54 Medical Branch budesonide- Yes 2{puff} Inhale 2 Univers formoterol 6-20 Puffs 2 ity of (SYMBICORT) 19:41: (two) [place] 160-4.5 54 times Medical mcg/actuati daily. Branch on inhaler ALBUTEROL Yes Take by Unive rs SULFATE 6-20 mouth. ity of (PROVENTIL 19:41: [place] ORAL) 54 Medical Branch sildenafil Yes 100mg Take 100 Un billy (VIAGRA) 6-20 mg by ity of 100 mg 19:41: mouth [place] tablet 54 weekly. Medical Branch albuterol Yes 2{puff} Inhale 2 U nivers (PROAIR 6-20 Puffs ity of HFA) 90 19:41: every 6 [place] mcg/actuati 54 (six) Medical on inhaler hours as Branc h needed for Wheezing or Shortness of Breath. ranitidine Yes 150mg Take 150 Un billy 150 mg 6-20 mg by ity of capsule 19:41: mouth [place] 54 daily. Medical Branch omeprazole Yes 20mg Take 20 mg U nivers (PRILOSEC) 6-20 by mouth ity o f 20 mg 19:41: daily. [place] capsule 54 Medical Branch budesonide- Yes 2{puff} Inhale 2 Univers formoterol 6-20 Puffs 2 ity of (SYMBICORT) 19:41: (two) [place] 160-4.5 54 times Medical mcg/actuati daily. Branch on inhaler Vital Signs Vital Name Observation Time Observation Value Comments Source Heart rate 2022-02-09 20:00:00 80 /min [facility] [place] Respiratory rate 2022-02-09 20:00:00 20 /min [facility] Oxygen saturation in 2022-02-09 20:00:00 100 /min [facility] Arterial blood by [facility] Pulse oximetry Branch Systolic blood 2022-02-09 19:59:00 144 mm[Hg] Univer sity of [facility] Diastolic blood 2022-02-09 19:59:00 65 mm[Hg] Unive rsity of [facility] Body temperature 2022-02-09 19:31:00 36.44 Debbie Univ ersity of [facility] Body height 2022-02-07 16:45:00 177.8 cm Universi ty of [facility] Body weight 2022-02-07 16:45:00 68.9 kg Universi ty of [facility] BMI 2022-02-07 16:45:00 21.79 kg/m2 Universi ty of [facility] Heart rate 2022-02-09 19:50:00 71 /min Universi ty of [facility] Respiratory rate 2022-02-09 19:50:00 19 /min [facility] in 2022-02-09 19:50:00 98 /min [facility] Arterial blood by [facility] Pulse oximetry Branch Systolic blood 2022-02-09 19:46:00 127 mm[Hg] Univer sity of [facility] Diastolic blood 2022-02-09 19:46:00 82 mm[Hg] Unive rsity of [facility] Body temperature 2022-02-09 19:31:00 36.44 Debbie [facility] Body height 2022-02-07 16:45:00 177.8 cm Universi ty of [facility] Body weight 2022-02-07 16:45:00 68.9 kg Universi ty [facility] BMI 2022-02-07 16:45:00 21.79 kg/m2 Universi [facility] Procedures Procedure Date / Time Performing Source Performed Clinician [id number] 2022-02-21 [facility] 00:00:00 [facility] [id number] 2022-02-21 [facility]T [facility] 00:00:[address] [facility] [address] ABDOMEN PELVIS W CONTRAST 2022-02-10 [facility] 18:18:45 Prabhu Negrete [facility] CT THORAX W CONTRAST 2022-02-10 [facility] 18:16:55 Prabhu Negrete [facility] COLONOSCOPY (ENDO) 2022-02-09 Tristan Cooper [facility] 19:07:32 [facility] COLONOSCOPY (ENDO) 2022-02-09 [facility] of 19:07:32 [facility] COLONOSCOPY 2022-02-09 [facility] 18:43:00 Prabhu Negrete [facility] ESOPHAGOGASTRODUODENOSCOPY 2022-02-09 [facility] of 18:43:00 Prabhu Negrete [facility] EGD (ENDO) 2022-02-09 [facility] of 18:39:49 [facility] EGD (ENDO) 2022-02-09 [facility] of 18:39:49 [facility] DAY SURGERY - ADC 2022-02-09 [facility] of 05:01:00 Unassigned, No [place] Medical Name Branch DISCLOSURE AND CONSENT, [facility] 2022-02-07 [facility] AND SURGICAL PROCEDURES 05:01:00 Unassigned, No [facility] dical Name Branch DISCLOSURE AND CONSENT, [facility] 2022-02-07 [facility] AND SURGICAL PROCEDURES 05:01:00 Unassigned, No [place] In dical Name Branch ASSIGNMENT OF BENEFITS 2019-12-26 [facility] of 22:14:03 Unassigned, No [place] Medical Name Branch Encounters Start End Encounter Admission Attending Care Care Encounter Source Date/Time Date/Time Type Type Clinicians Facility Department ID 2022-02-21 2022-02-23 Inpatient ISAIAH Helms [facility] DAYS [id number] [facility] 05:29:00 16:06:00 , [facility] 92 Cl [facility] 2022-02-10 2022-02-10 Outpatient R [facility] [id number] Univers 12:06:04 23:59:00 PRABHU Campo [facility] Branch 2022-02-10 2022-02-10 [facility] [id number] Univers 12:06:04 23:59:00 Encounter Prabhu campo 350.1.13.[address] [facility] 4.2.7.2.686 [facility] [phone] [facility] 801 Branch 2022-02-10 2022-02-10 [facility] 1.2.840.114 [id number] Univers 12:04:54 12:05:00 Encounter alber Prabhu Negrete [place] 350.1.13.10 ity [place] 4[place]2.[place].686 [place] [id number] [address] 2022-02-09 2022-02-09 Outpatient R [facility] ROSANNA [id number] Univers 12:21:00 15:18:00 PRABHU Campoy o f [facility] 2022-02-09 2022-02-09 [facility] 1..840.114 [id number] Univers 12:21:00 15:18:00 Encounter e, Prabhu Negrete [place] 350.1.13.10 ity of [place] 4[place]2.7.2.686 [place] SUR[place]ICAL [id number] [facility] 071 [place] 2022-02-09 2022-02-09 Surgery [facility] 1.2.840.114 [id number] Univers 13:57:00 14:50:00 ePrabhu [place] 350.1.13.10 ity of [place] 4.2.7.2.686 [place] SUR[place]ICAL [id number] [facility] 020 [place] 2020-02-27 2020-02-27 Telephone Pcp, [facility] 1.2.886.161 [id number] 00:00:00 00:00:00 Patient Health [id number] Does Not Surgical 4.2.7.2.686 Have A Specialti [id number] [address] [place] 2020-02-27 2020-02-27 Telephone Pcp, [facility] 1.2.288.868 [id number] Univers 00:00:00 00:00:00 Patient Health 350.1.13.10 it y of Does Not Surgical [place].2.686 [place] Have A Specialti [id number] In dical 370 [facility] 2020-02-25 2020-02-25 Outpatient R DENISE [facility] [id number] Univers 16:00:00 16:00:00 SYDNEE johnson of [facility] 2020-02-25 2020-02-25 Laboratory Lab, [facility] 1..840.114 [id number] 15:37:19 15:57:19 Only Fam Pob I Health 350.1.13.10 [place] 4.2.7.2.686 Professio [id number] [place] [address] [address] 2020-02-25 2020-02-25 Laboratory Lab, [facility] Fam Pob I RIMB 1.2. 840.114 [id number] [facility] 15:37:19 15:57:19 Only Anene, [facility] 350.1.13.10 ity of [place] 4.2.7.2.686 [place] as Professio [id number] [address] Office Building [facility] 2019-12-26 2019-12-26 Outpatient R [facility] [id number] Univers 18:00:00 18:00:00 ity of [facility] 2019-12-26 2019-12-26 Laboratory Lab, [facility] Fam Pob I [facility] 1.2. 840.114 [id number] [facility] 17:17:23 17:37:23 Only Unknown, Attending Health 350.1.13.10 ity of [place] 4.2.7.2.686 [place] as Professio [phone] [address] Office Building [facility] 2019-12-26 2019-12-26 Laboratory Lab, [facility] 1.2.840.114 [id number] 17:17:23 17:37:23 Only Fam Pob I Health 350.1.13.10 [place] 4.2.7.2.686 Professio [id number] [place] [address] Office Building [facility] 2019-12-26 2019-12-26 Orders Doctor VALERIA 1.2.840.114 [id number] [facility] 00:00:00 00:00:00 Only Unassigned, VASQUEZ 350.1.13.10 ity of [place] [facility] 4.2.7.2.686 [place] as [id number] [address] 2019-12-26 2019-12-26 Orders Doctor VALERIA 1.2.840.114 [id number] 00:00:00 00:00:00 Only Unassigned, VASQUEZ 350.1.13.10 [place] [facility] 4.2.7.2.686 [id number] Results Test Description Test Time Test Comments Results Result Comments Source SURGICAL 2022-02-23 14:20:00 Test Item Value Reference Range Interpretation Comme nts SURGICAL RUN DATE: (test 02/25/22 [facility] GE 1 RUN TIME: 804 Specimen Inquiry RUN USER: INTERFACE code = PATIENT: ) NAS GOETZ [id number] [facility] #: [id number] AGE/SX: 76/M ROOM: [facility] RE02/21/22REG DR: Zunilda Helms : 43 BED: 1 DIS: 02/23/22 STATUS: DIS IN TLOC: SPEC #: [id number] RECD: 02/22/22- 5 STATUS: SERGEI [place] #: [id number] NICOLAS: 02/21/22- SUBM DR: Zunilda Helms MD NTERED: 02/22/22-1015 SP TYPE: SURGICAL OTHR DR: ORDERED: [id number], ANATOMIC SPEC PROCEDURES: [id number] (-[id number]) TISSUES: A. COLON NOS - RIGHT ASCENDING ADDENDUM FINDINGS Addendum #1 Entered: This addenum is issued to report the results of ancillary studies performed and interpretedat [facility] (see below). 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 MSH2 AND MSH6 SHOW INTACT NUCLEAR EXPRESSION. ABSENCE OF STAINING FORMLH1 AND PMS2 INDICATES DEFICIENCY IN THESE MISMATCH REPAIR PROTEINS. Note: Background nonneoplastic tissue/interna l control shows intact nuclear expression ofall tested MMR proteins. Comments:Further testing for BRAF mutation and/or MLH1 promoter hypermethlylation may help determineif the mismatch repair deficien cy is sporadic or due to Izquierdo Syndrome. If BRAFmutation/MLH1 promoter hypermethylation are absent, then genetic counseling and germlinesequencing and/or large deletion/duplication testing of MLH1 should be considered. Patientswith solid tumors and MMR loss may respond to therapy with immu ne checkpoint inhibitors. PLEASE SEE ORIGINAL REFERENCE LAB REPORT FOR DETAILS Addendum Signed SIGNATURE ON FILE Mg Gallagher 02/25/22 0805 CAP CANCER SUMMARY COLON AND RECTUM: Re section, Including Transanal Disk Excision of Rectal Neoplasms 2020 Version 4.2.0.1 SPECIMENProc edure: Right hemicolectomyMacroscopic Evaluation of Mesorectum (required for rectal cancers): Not applicable CONTINUED ON NEXT P AGE RUN DATE: 02/25/22 [facility] GE 2 RUN TIME: 804 Specimen Inquiry RUN USER: INTERFACE SPEC #: [id number] PATIENT: NAS GOETZ #[id number] (Continued) CAP CANCER SUMMARY (Continu ed) TUMORTumor Site: Cecum/ascending colonHistologic Type: AdenocarcinomaHistologic Gra de: Grade 3, poorly differentiatedTumor Size: 4 cmMultiple Primary Sites (e.g., hepatic flexure and t ransverse colon) : Not applicableTumor Extent: Tumor invades through the muscularis propria into ankush colorectal tissueMacroscopic Tumor Perforation: Not identifiedLymphovascular Invasion: PresentPerineural Invasion: Not identifiedTreatment Effect : Not applicableMARGINS Margin Status for Invasive Carcinom a: All margins negative for tumor Distance from Invasive Carcinoma to Radial (Circumferential) Margin (re quired forrectal tumors) : Not applicable Distance from Invasive Carcinoma to Closest Mucosal Margin (r elevant and required onlyfor transanal disc excisions) : Not applicable Margin(s) Involved by Invasi ve Carcinoma: Not applicable Margin Status for Non- Invasive Tumor : Not applicable Margin(s) Involve d by High-Grade Dysplasia / Intramucosal Carcinoma: Not applicable Margin(s) Involved by Low-Grade Dyspla sil : Not applicableREGIONAL LYMPH NODES Regional Lymph Node Status: Regional lymph nodes present Number of Lymph Nodes with Tumor: 10 Number of Lymph Nodes Examined : 19Tumor Deposits Number of T umor Deposits: 0DISTANT METASTASIS Distant Site(s) Involved, if applicable: Not applicablePATHOLOGIC STA GE CLASSIFICATION (pTNM, AJCC 8th Ed.)TNM Descriptors: Not applicable pT Category: 3 pN Category: 2b pM Category (required only if confirmed pathologically): Not applicableADDITIONAL FINDING S: NoneSPECIAL STUDIES: Block F can be used for ancillary tests if needed. MMR test results arepending. COMMENTS Comment(s): MMR results will be reported in an addendum. 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 GROSS DESCRIPTION The specimen received in formalin in a container labeled with the corey stewart's name anddesignated right colon consists of a partial colectomy specimen that measures 14 cm inlength and up to 3 cm in diameter. Both peripheral margins are stapled shut. Themesenteric margin i s submitted in cassette A. The peripheral resection margins aresubmitted in cassette B. The specimen is then opened to reveal an ulcerated mass thatmeasures 4 cm in greatest dimension. The tumor appears to involve the muscularis propriaas well as the deep fat. It approaches the serosa. Header Operator secti ons of the tumorare submitted in cassettes C through G. Possible lymph nodes are submitted in cassettes H through O. Technical component performed at [facility],[address] [place] [address], [place] [address] Unless gross only, the diagnosis is based upon microscopic examination .Immunohistochemistry: This test was developed and its performance characteristicsdetermined by this laboratory. It has not been approved nor does it need approvalby the [place] FDA. Appropriate positive and negative controls are reviewed and judgedto be acceptable. This laboratory is certified unde r the Clinical Laboratory ImprovementAmendments (CLIA-88) as qualified to perform [facility] laboratory testing. MICROSCOPIC DESCRIPTION A microscopic examination was performed. CLINICAL INFORMATION ASCENDING COLON CANCER Signed Mg Gallagher 02/23/22 1420 END OF REPORT HGB [id number] 13:29:00 Test Item Value Reference Range Interpretation Comments HEMOGLOBIN (test code = HGB) 8.4 g/dL 12.5-16.9 L HEMATOCRIT (test code = HCT) 27.3 % 37.5-50.7 L BASIC METABOLIC [id number] 05:44:00 Test Item Value Reference Range Interpretation Comments SODIUM (test code = 140 mEq/L 134-147 N NA) POTASSIUM (test code 4.2 mEq/L 3.4-5.0 = K) CHLORIDE (test code 105 mEq/L 100-108 N = CL) CARBON DIOXIDE (test 27 mEq/l 21-33 N code = CO2) ANION GAP (test code 12 0-20 N = GAP) GLUCOSE (test code = 143 mg/dL 70-110 H GLU) BLOOD UREA NITROGEN 20 mg/dL 7-18 H (test code = BUN) GLOMERULAR 62.3 70-80 L The Glomerular FILTRATION RATE Filtration R ate is a (test code = GFR) calculated parameterbased on serum Creatinine, pat ient age and sex. GFR va luesless than 60 mL/min/ 1.73 square meters a re indicative ofCh ronic Kidney Disease. Values less than 15 mL/min/1.73squa re meters indicate Kidney failure. The calculation forGFR is based on the CKD-EPI (2020) calculat ion. This formulais race indifferent and is the recommended for arash for GFRby the [facility] Kidney Foundati on for Adults.The GFR will not calculate if th e sex is unknown or if thepatient's ag e is <18 years. CREATININE (test 1.2 mg/dL 0.6-1.3 N code = CREAT) CALCIUM (test code = 8.5 mg/dL 8.0-10.5 N CA) [id number] 05:44:00 Test Item Value Reference Range Interpretation Comments PHOSPHOROUS (test code = PHOS) 4.6 MG/DL 2.5-4.9 N [id number] 05:44:00 Test Item Value Reference Range Interpretation Comments MAGNESIUM (test code = MAG) 2.11 mg/dL 1.80-2.40 N CALCIUM [id number] 05:44:00 Test Item Value Reference Range Interpretation Comments CALCIUM IONIZED (test code = MODE) 1.08 MMOL/L 1.09-1.30 L HGB [id number] 05:21:00 Test Item Value Reference Range Interpretation Comments HEMOGLOBIN (test code = HGB) 7.8 g/dL 12.5-16.9 L HEMATOCRIT (test code = HCT) 25.9 % 37.5-50.7 L BASIC METABOLIC [id number] 12:58:00 Test Item Value Reference Range Interpretation Comments SODIUM (test code = 141 mEq/L 134-147 N NA) POTASSIUM (test code 3.1 mEq/L 3.4-5.0 L = K) CHLORIDE (test code 104 mEq/L 100-108 N = CL) CARBON DIOXIDE (test 29 mEq/l 21-33 N code = CO2) ANION GAP (test code 11 0-20 N = GAP) GLUCOSE (test code = 88 mg/dL 70-110 N GLU) BLOOD UREA NITROGEN 17 mg/dL 7-18 N (test code = BUN) GLOMERULAR 62.3 70-80 L The Glomerular FILTRATION RATE Filtration R ate is a (test code = GFR) calculated parameterbased on serum Creatinine, pat ient age and sex. GFR va luesless than 60 mL/min/ 1.73 square meters a re indicative ofCh ronic Kidney Disease. Values less than 15 mL/min/1.73squa re meters indicate Kidney failure. The calculation forGFR is based on the CKD-EPI (2020) calculat ion. This formulais race indifferent and is the recommended for arash for GFRby the [facility] Kidney Foundati on for Adults.The GFR will not calculate if th e sex is unknown or if thepatient's ag e is <18 years. CREATININE (test 1.2 mg/dL 0.6-1.3 N code = CREAT) CALCIUM (test code = 8.9 mg/dL 8.0-10.5 N CA) BASIC METABOLIC [id number] 08:43:00 Test Item Value Reference Range Interpretation Comments SODIUM (test code = 138 mEq/L 134-147 N NA) POTASSIUM (test code 4.1 mEq/L 3.4-5.0 N = K) CHLORIDE (test code 106 mEq/L 100-108 N = CL) CARBON DIOXIDE (test 25 mEq/l 21-33 N code = CO2) ANION GAP (test code 11 0-20 N = GAP) GLUCOSE (test code = 114 mg/dL 70-110 H GLU) BLOOD UREA NITROGEN 19 mg/dL 7-18 H (test code = BUN) GLOMERULAR 69.1 70-80 L The Glomerular FILTRATION RATE Filtration R ate is a (test code = GFR) calculated parameterbased on serum Creatinine, pat ient age and sex. GFR va luesless than 60 mL/min/ 1.73 square meters a re indicative ofCh ronic Kidney Disease. Values less than 15 mL/min/1.73squa re meters indicate Kidney failure. The calculation forGFR is based on the CKD-EPI (2020) calculat ion. This formulais race indifferent and is the recommended for arash for GFRby the [facility] for Adults.The GFR will not calculate if th e sex is unknown or if thepatient's ag e is <18 years. CREATININE (test 1.1 mg/dL 0.6-1.3 N code = CREAT) CALCIUM (test code = 9.5 mg/dL 8.0-10.5 N CA) AG [id number] 08:43:00 Test Item Value Reference Range Interpretation Comments AG CARCINOEMBRYONIC (test code = 1.5 NG/ML 0.0-5.0 N CEA) CBC W/AUTO [id number] 08:40:00 Test Item Value Reference Range Interpretation Comments WHITE BLOOD CELL (test code = 8.9 x10 3/uL 4.5-11.0 N WBC) RED BLOOD CELL (test code = 3.88 x10 6/uL 4.00-5.60 L RBC) HEMOGLOBIN (test code = HGB) 9.0 g/dL 12.5-16.9 L HEMATOCRIT (test code = HCT) 29.3 % 37.5-50.7 L MEAN CELL VOLUME (test code = 75.5 fL 81.0-99.0 L MCV) MEAN CELL HGB (test code = MCH) 23.2 pg 27.0-33.0 L MEAN CELL HGB CONCETRATION 30.7 g/dL 33.0-37.0 L (test code = MCHC) RED CELL DISTRIBUTION WIDTH CV 14.8 % 11.5-14.5 H (test code = RDW) RED CELL DISTRIBUTION WIDTH SD 40.5 fL 37.0-54.0 N (test code = RDW-SD) PLATELET COUNT (test code = 365 x10 3/uL 150-400 N PLT) MEAN PLATELET VOLUME (test code 9.3 fL 7.0-9.0 H = MPV) NEUTROPHIL % (test code = NT%) 72.6 % 56.0-77.0 N IMMATURE GRANULOCYTE % (test 0.3 % 0.0-2.0 N code = IG%) LYMPHOCYTE % (test code = LY%) 14.1 % 14.0-32.0 N MONOCYTE % (test code = MO%) 9.6 % 4.8-9.0 H EOSINOPHIL % (test code = EO%) 2.1 % 0.3-3.7 N BASOPHIL % (test code = BA%) 1.3 % 0.0-2.0 N NUCLEATED RBC % (test code = 0.0 % 0-0 N NRBC%) NEUTROPHIL # (test code = NT#) 6.45 x10 3/uL 2.0-7.6 N IMMATURE GRANULOCYTE # (test 0.03 x10 3/uL 0.00-0.03 N code = IG#) LYMPHOCYTE # (test code = LY#) 1.25 x10 3/uL 1.0-3.8 N MONOCYTE # (test code = MO#) 0.85 x10 3/uL 0.1-0.8 H EOSINOPHIL # (test code = EO#) 0.19 x10 3/uL 0.0-0.2 N BASOPHIL # (test code = BA#) 0.12 x10 3/uL 0.0-0.2 N NUCLEATED RBC # (test code = 0.00 x10 3/uL 0.0-0.1 N NRBC#) MANUAL DIFF REQUIRED (test code NO = MDIFF) PROTHROMBIN [id number] 08:34:00 Test Item Value Reference Range Interpretation Comments PROTHROMBIN TIME 12.5 SECONDS 9.3-12.9 N PATIENT (test code = PTP) INTERNATIONAL NORMAL 1.1 0.8-1.2 N TARGET INR BY RATIO (test code = INDICATIO N Indication INR) INR1. Prophylax is of venous thrombos is 2.0 - 3.0 (orthoped ic surgery), Proph ylaxis of venous throm bosis (other than hig h-risk surgery), Treat ment of Deep Vein Thrombosis/Pulm onary Embolism, Preve ntion of systemic emb olism - Tissue heart va lves, Acute Myocardia l Infarction (to prevent systemic emboli sm), Valvular heart disease, Atrial Fibrillation, Bileaflet mecha nical valve in aortic position.2. Mec hanical prosthetic valv es (high risk), 2. 5 - 3.5 Presence of Lup us Anticoagulant o r Antiphospholipi d Antibodies, Pre vention of systemic emb olism - Acute Myocardia l Infarction (to prevent recurrent infar ct). THROMBOPLASTIN TIME [id number] 08:34:00 Test Item Value Reference Range Interpretation Comments THROMBOPLASTIN TIME 29.4 Seconds 25.0-39.5 N Therape utic Range: PARTIAL (test code = 50.4 - 88.3 Seconds PTT) Effective 07/24/2018 - XR CHEST 2 [id number] 00:00:00 [facility] 1945 Sex: M FAX: Jacy Atkinson [place]: St: PRE FAX: Flip Sweet [phone] Name: NAS GOETZ [facility] : 1945 Age/S: 76/M [address] [place] [address] Unit #: [id number] Loc: [place] [address] Phys: Jacy Atkinson NP Acct: [id number] Dis Date: Status: PRE IN PHONE #: [phone] Exam Date: 02/18/2022825 FAX #: [phone] Reason: PREOP EXAMS: CPT CODE: [id number] XR CHEST 2 V [id number] PROCEDURE INFORMATION: Exam: XR Chest Exam date and time: 02/18/2022 8:26 AM Age: 76 years old Clinical indication: Other: Preop TECHNIQUE: Imaging protocol: Radiologic exam of the chest. Views: 2 views. PA and Lateral COMPARISON: No relevant prior studies available. FINDINGS: Lungs: No consolidation or interstitial edema. Pleural spaces: There is blunting of the right costophrenic angle. No left pleuraleffusion. Heart/Mediastinum: The heart size is normal. Bones/joints: No acute abnormality. IMPRESSION: Blunting of right costophrenic angle may represent small pleural effusion or atelectasis. at 1132 Reported and signed by: Reid Sky M.D. CC: Jacy Atkinson LOT PORTER; Zunilda Helms MD Technologist: RT Danilo(R) Trnyosefrd Date/Time/By: 02/18/2022 (113) : By: [email or web address] Orig Print D/T: S: 02/18/2022 (113) PAGE 1 Signed Report
[2022-03-01 08:53] LABS: Urine Blood Negative (Negative); Urine Glucose Negative (Negative); Urine Protein Negative (Negative); Urine Specific Gravity 1.015 (1.005-1.030)
--- NOTE | 2022-03-01 08:55 | EDPHYS ---
Physician Documentation [facility] Name: Ricky Goetz Age: 76 yrs Sex: Male : 1945 Arrival Date: 03/01/2022 Time: :30 Bed 20 Private MD: Tristan Cooper ED Physician Enrrique Ashraf HPI: 03/01 07:45 This 76 yrs old Male presents to ER via Ambulatory with complaints of Urinary jl9 Retention. Patient had zacarias removed yesterday s/p colon surgery. . 07:45 Onset: The symptoms/episode began/occurred yesterday. Associated signs and symptoms: jl9 The patient has no apparent associated signs or symptoms. Modifying factors: The patient symptoms are alleviated by nothing, the patient symptoms are aggravated by nothing. Historical: - Allergies: 07:40 No Known Allergies; iw - PMHx: 07:40 Asthma; COPD; Emphysema; GERD; Grave's dx; iw - Immunization history:: Adult Immunizations up to date. - Social history:: Smoking status: Patient denies any tobacco usage or history of. ROS: 07:46 Constitutional: Negative for fever, chills, and weight loss, Eyes: Negative for injury, jl9 pain, redness, and discharge, ENT: Negative for injury, pain, and discharge, Neck: Negative for injury, pain, and swelling, Cardiovascular: Negative for chest pain, palpitations, and edema, Respiratory: Negative for shortness of breath, cough, wheezing, and pleuritic chest pain, Abdomen/GI: Negative for abdominal pain, nausea, vomiting, diarrhea, and constipation, Back: Negative for injury and pain. 07:46 MS/Extremity: Negative for injury and deformity, Skin: Negative for injury, rash, and discoloration, Neuro: Negative for headache, weakness, numbness, tingling, and seizure, Psych: Negative for depression, anxiety, suicide ideation, homicidal ideation, and hallucinations, Allergy/Immunology: Negative for hives, rash, and allergies, Endocrine: Negative for neck swelling, polydipsia, polyuria, polyphagia, and marked weight changes, Hematologic/Lymphatic: Negative for swollen nodes, abnormal bleeding, and unusual bruising. 07:46 : Positive for difficulty urinating. Exam: 07:46 Constitutional: This is a well developed, well nourished patient who is awake, alert, jl9 and in no acute distress. Head/Face: Normocephalic, atraumatic. Eyes: Pupils equal round and reactive to light, extra-ocular motions intact. Lids and lashes normal. Conjunctiva and sclera are non-icteric and not injected. Cornea within normal limits. Periorbital areas with no swelling, redness, or edema. ENT: Mucous membranes moist. Neck: Trachea midline, no thyromegaly or masses palpated, and no cervical lymphadenopathy. Supple, full range of motion without nuchal rigidity, or vertebral point tenderness. No Meningismus. Chest/axilla: Normal chest wall appearance and motion. Nontender with no deformity. No lesions are appreciated. Cardiovascular: Regular rate and rhythm with a normal S1 and S2. No gallops, murmurs, or rubs. Normal PMI, no JVD. No pulse deficits. Respiratory: Lungs have equal breath sounds bilaterally, clear to auscultation and percussion. No rales, rhonchi or wheezes noted. No increased work of breathing, no retractions or nasal flaring. Abdomen/GI: Soft, non-tender, with normal bowel sounds. No distension or tympany. No guarding or rebound. No evidence of tenderness throughout. Back: No spinal tenderness. No costovertebral tenderness. Full range of motion. 07:46 Skin: Warm, dry with normal turgor. Normal color with no rashes, no lesions, and no evidence of cellulitis. MS/ Extremity: Pulses equal, no cyanosis. Neurovascular intact. Full, normal range of motion. Neuro: Awake and alert, GCS 15, oriented to person, place, time, and situation. Cranial nerves II-XII grossly intact. Motor strength 5/5 in all extremities. Sensory grossly intact. Cerebellar exam normal. Normal gait. Psych: Awake, alert, with orientation to person, place and time. Behavior, mood, and affect are within normal limits. 07:46 : Bladder: distension, that is mild. Vital Signs: 07:39 BP 142 / 100; Pulse 121; Resp 18; Temp 97.9; Pulse Ox 100% ; iw MDM: 07:41 Patient medically screened. jl9 07:47 Data reviewed: vital signs, nurses notes. jl9 08:53 Differential diagnosis: UTI, urinary retention. Data reviewed: lab test result(s). jl9 Counseling: I had a detailed discussion with the patient and/or guardian regarding: the historical points, exam findings, and any diagnostic results supporting the discharge/admit diagnosis, lab results, the need for outpatient follow up, a urologist, to return to the emergency department if symptoms worsen or persist or if there are any questions or concerns that arise at home. Response to treatment: the patient's symptoms have markedly improved after treatment. 03/01 08:54 Order name: Urine Dipstick-Ancillary; Complete Time: 08:54 EDMS 03/01 07:39 Order name: Urine Dipstick-Ancillary (obtain specimen); Complete Time: 08:41 jl9 03/01 07:41 Order name: Bladder Scanner; Complete Time: 08:41 jl9 03/01 07:45 Order name: Zacarias; Complete Time: 08:41 jl9 Administered Medications: No medications were administered Disposition Summary: 03/01/22 08:55 Discharge Ordered Location: Home jl9 Condition: Stable jl9 Diagnosis - Displacement of urinary (indwelling) catheter jl9 Followup: jl9 - With: Tobias Mitchell MD - When: 1 - 2 days - Reason: Recheck today's complaints, Continuance of care, Re-evaluation by your physician Discharge Instructions: - Discharge Summary Sheet jl9 - Indwelling Urinary Catheter Care, Adult, [id number] jl9 Forms: - Medication Reconciliation Form jl9 - Thank You Letter jl9 - Antibiotic Education jl9 - Prescription Opioid Use jl9 Signatures: Lala Zendejas RN RN Reid Mar RN RN Neno Valdovinos jl9
--- NOTE | 2022-03-01 08:55 | ER ---
Nurse's Notes [facility] Name: Ricky Goetz Age: 76 yrs Sex: Male : 1945 Arrival Date: 03/01/2022 Time: 07:30 Bed 20 Private MD: Tristan Cooper Diagnosis: Displacement of urinary (indwelling) catheter Presentation: 03/01 07:39 Chief complaint: Patient states: urinary retentions cine 3 or 4 this morning, only iw going three or four drops, had a catheter in and they took it out yesterday , he had colon surgery in [place]. Coronavirus screen: At this time, the client does not indicate any symptoms associated with coronavirus-19. Ebola Screen: Patient negative for fever greater than or equal to 101.5 degrees Fahrenheit, and additional compatible Ebola Virus Disease symptoms Patient denies exposure to infectious person. Patient denies travel to an Ebola-affected area in the 21 days before illness onset. No symptoms or risks identified at this time. Initial Sepsis Screen: Does the patient meet any 2 criteria? No. Patient's initial sepsis screen is negative. Does the patient have a suspected source of infection? No. Patient's initial sepsis screen is negative. Risk Assessment: Do you want to hurt yourself or someone else? Patient reports no desire to harm self or others. Onset of symptoms was March 01, 2022. 07:39 Method Of Arrival: Ambulatory iw 07:39 Acuity: NANNETTE 3 iw Triage Assessment: 07:40 General: Appears distressed, uncomfortable, Behavior is cooperative, appropriate for bp age, anxious. Pain: Complains of pain in pelvis. EENT: No deficits noted. Neuro: No deficits noted. Cardiovascular: No deficits noted. Respiratory: No deficits noted. GI: No signs and/or symptoms were reported involving the gastrointestinal system. : Reports inability to void. Derm: No deficits noted. Musculoskeletal: No deficits noted. Historical: - Allergies: 07:40 No Known Allergies; iw - PMHx: 07:40 Asthma; COPD; Emphysema; GERD; Grave's dx; iw - Immunization history:: Adult Immunizations up to date. - Social history:: Smoking status: Patient denies any tobacco usage or history of. Screenin:48 Abuse screen: Denies threats or abuse. Denies injuries from another. Nutritional bp screening: No deficits noted. Tuberculosis screening: No symptoms or risk factors identified. Fall Risk None identified. Assessment: 07:40 General: SEE TRIAGE NOTE. bp 08:30 Reassessment: PER BLADDER U/S, VOLUME AT 550 ML. bp 09:13 Reassessment: PT DC HOME WITH NDIAYE IN PLACE. PT TO F/U WITH UROLOGY. bp Vital Signs: 07:39 BP 142 / 100; Pulse 121; Resp 18; Temp 97.9; Pulse Ox 100% ; iw ED Course: 07:30 Patient arrived in ED. as 07:30 Tristan Cooper MD is Private Physician. as 07:38 [facility] jl9 07:39 Enrrique Ashraf MD is Attending Physician. jl9 07:40 Triage completed. iw 07:40 Patient has correct armband on for positive identification. Bed in low position. Call bp light in reach. Side rails up X2. 07:41 Arm band placed on. iw 08:08 Reid Rasheed, RN is Primary Nurse. bp 08:30 Coud inserted, using sterile technique, 14 Fr. Returned cloudy urine. To gravity bp drainage. Urine specimen collected. 08:54 Tobias Mitchell MD is Referral Physician. jl9 09:15 No provider procedures requiring assistance completed. Patient did not have IV access bp during this emergency room visit. Administered Medications: No medications were administered Medication: 09:16 VIS not applicable for this client. bp Outcome: 08:55 Discharge ordered by . jl9 09:15 Discharged to home ambulatory, with crutches. bp 09:15 Condition: stable 09:15 Discharge instructions given to patient, family, Instructed on discharge instructions, follow up and referral plans. Demonstrated understanding of instructions, follow-up care. 09:16 Patient left the ED. bp Signatures: Johanna Acharya Irene, RN RN iw Reid Rasheed, ASTRID RN bp Neno Suazo jl9
[2022-03-01 09:21] VITALS: BP 142/100; TEMP 97.9; O2SAT 100
== END 2022-03-01 09:16 | disposition home or self-care (01) ==
LOC: ER 07:28
DX: T83.021A Displacement of indwelling urethral catheter, initial encounter (principal); R33.9 Retention of urine, unspecified
CPT/HCPCS: 81003; 99284

== ENCOUNTER 2022-03-03 18:23 | Emergency (ER) | payer OTHER ==
--- OUTSIDE RECORDS SUMMARY | 2022-03-03 18:26 | XMS REPORT | Continuity of Care Document ---
:1945 Author Organization [facility] t Address [address] [place] [address] Care Team Providers Name Role Phone PCP, PATIENT DOES NOT HAVE A Primary Care Physician UnavailTristan Alcantar Attending Clinician Unavailable Zunilda Helms Attending Clinician Unavailable PRABHU DONIS Attending Clinician Unavailable Prabhu Donis MD Attending Clinician Pcp, Patient Does Not Have A Attending Clinician [phone] SYDNEE WALKER Attending Clinician Unavailable Lab, Adc Fam Pob I Attending Clinician Unavailable Sydnee Ovalles Attending Clinician Unknown, Attending Attending Clinician Unavailable Doctor Unassigned, [place] Attending Clinician Unavailable Zunilda Helms Admitting Clinician Unavailable PRABHU DONIS Admitting Clinician Unavailable Prabhu Donis MD Admitting Clinician Payers Payer Name Policy Type Policy Number Effective Date Expiration Date S jason MEDICARE PART A [id number] 2009 \T\ B 00:00:00 [employer] INDEMNITY [id number] 2013 00:00:00 Problems Condition Condition Condition Status Onset Resolution Last Treating Co mments Source Name Details Category Date Date Treatment Clinician Date [id number] Transient Problem Com mon iatrogenic Spirit urethral - [facility] bleeding [facility] [id number] Acute Problem Common urinary Spirit retention - [facility] [id number] 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 Social History Social Habit Start Date Stop Date Quantity Comments Source History of Common Spirit - Tobacco Use [facility] Sex Assigned At Common Sp mita - [facility] Alcohol intake 2022-02-10 2022-02-10 0 /d University [facility] 00:00:00 00:00:00 [facility] Exposure to 2022-01-29 2022-02-08 Not sure [facility] SARS-CoV-2 00:00:00 15:36:00 [facility] (event) [place] Tobacco use and 2017-09-25 2017-09-25 Smokeless tobacco Un iversity of exposure 00:00:00 00:00:00 non-user [facility] Tobacco Comment 2017-09-25 2017-09-25 Recently quit Univer sity of 00:00:00 00:00:00 smoking [facility] Smoking Status Start Date Stop Date Source Former Smoker 2022-03-02 00:00:00 2022-03-02 00:00:00 Common S pirit - [facility] Medications Ordered Filled Start Stop Current Ordering Indication Dosage Frequency Signature Comments Components Source Medication Medication Date Date Medication? Clinician (SIG) Name Name Flomax 0.4 Flomax 0.4 2021-04- No 1{capsu QD Flomax 0.4 MG MG 05-02 le} MG 00:00: 00:00 00 :00 iopamidol 2021-04- No [id number] 69mL 69 mL, Univers (ISOVUE 04-12 Intravenou ity o f 370-500 mL) 19:15: 18:17 s, ONCE, 1 [place] injection 00 :00 dose, On Medica l 69 mL [place] Branch 02/10/22 at 1415, Routine water for 2021-04- No PRN, Univers irrigation 04-11 Starting ity of irrigation 19:02: 19:52 on Mon [place] solution 00 :17 02/09/22 at Medic al 1402, Branch Until Mon02/09/22 at 1452, Routine, Intra-op simethicone 2021-04- No PRN, [facility] rs (GAS RELIEF 04-11 Starting ity of (SIMETHICON 19:02: 19:52 on Mon [place] as E)) 40 00 :17 02/09/22 at Medical mg/0.6 mL 1402, Branch drops Until Mon02/09/22 at 1452, Routine, Intra-op lactated 2021-04- No 1000mL at 42 [facility] rs ringers IV 04-1102 mL/hr, ity of infusion 17:45: 17:39 1,000 mL, [place] as 1,000 mL 00 :00 IV Medical Infusion, Branch ONCE, 1 dose, On Mon02/09/22 at 1245, Routine, DSU Pre-op lactated 2021-04- No 1000mL at 42 [facility] rs ringers IV 04-11 1102 mL/hr, ity of infusion 17:45: 17:39 1,000 mL, [place] as 1,000 mL 00 :00 IV Medical Infusion, Branch ONCE, 1 dose, On Mon02/09/22 at 1245, Routine, DSU Pre-op omeprazole 2021-04 Yes 20mg Take 20 mg U nivers (PRILOSEC) 04-11 by mouth ity o f 20 mg 15:19: daily. [place] capsule 55 Medical Branch budesonide- 2021-04 Yes 2{puff} Inhale 2 Univers formoteroL 04-11 Puffs 2 ity of 160-4.5 15:19: (two) [...] [place] tablet 54 weekly. Medical Branch albuterol 0 Yes 2{puff} Inhale 2 U nivers (PROAIR 6-20 Puffs ity of HFA) 90 19:41: every 6 [place] mcg/actuati 54 (six) Medical on inhaler hours as Branc h needed for Wheezing or Shortness of Breath. ranitidine 2018-0 Yes 150mg Take 150 Un billy 150 mg 6-20 mg by ity of capsule 19:41: mouth [place] 54 daily. Medical Branch omeprazole 0 Yes 20mg Take 20 mg U nivers [...] [place] tablet 54 weekly. Medical Branch albuterol 0 Yes 2{puff} Inhale 2 U nivers (PROAIR 6-20 Puffs ity of HFA) 90 19:41: every 6 [place] mcg/actuati 54 (six) Medical on inhaler hours as Branc h needed for Wheezing or Shortness of Breath. ranitidine 2018-0 Yes 150mg Take 150 Un billy 150 mg 6-20 mg by ity of capsule 19:41: mouth [place] 54 daily. Medical Branch omeprazole 2018-0 Yes 20mg Take 20 mg U nivers (PRILOSEC) 6-20 by mouth ity o f 20 mg 19:41: daily. [place] capsule 54 Medical Branch budesonide- 2018-0 Yes 2{puff} Inhale 2 Univers formoterol 6-20 Puffs 2 ity of (SYMBICORT) 19:41: (two) [place] 160-4.5 54 times Medical mcg/actuati daily. Branch on inhaler ALBUTEROL 0 Yes Take by Unive rs SULFATE 6-20 [...] for Wheezing or Shortness of Breath. ranitidine 0 Yes 150mg Take 150 Un billy 150 [...] for Wheezing or Shortness of Breath. ranitidine 0 Yes 150mg Take 150 Un billy 150 mg 6-20 mg by ity of capsule 19:41: mouth [place] 54 daily. Medical Branch omeprazole Yes 20mg Take 20 mg U nivers (PRILOSEC) 6-20 by mouth ity o f 20 mg 19:41: daily. [place] capsule 54 Medical Branch budesonide- 2018-0 Yes 2{puff} Inhale 2 Univers formoterol 6-20 Puffs 2 ity of (SYMBICORT) 19:41: (two) [place] 160-4.5 54 times Medical mcg/actuati daily. Branch on inhaler Sildenafil Sildenafil No 1{table QD Sildenafil Citrate 100 Citrate 100 t_as_ne Citrate MG MG eded} 100 MG Advil PM Advil PM No 2{table QD Advil PM 200-38 MG 200-38 MG ts_at_b 200-38 MG edtime_ as_need ed} Gabapentin Gabapentin No 1{capsu QD Gabapentin 300 MG 300 MG le} 300 MG Benadryl Benadryl No 1{capsu QD Benadryl Allergy 25 Allergy 25 le_at_b Allergy 25 MG MG edtime_ MG as_need ed} Albuterol Albuterol No 1{puff_ 6xD Albuterol Sulfate 108 Sulfate 108 as_need Sulfate (90 Base) (90 Base) ed} 108 (90 MCG/ACT MCG/ACT Base) MCG/ACT Melatonin Melatonin No Melatonin 10 MG 10 MG 10 MG Vital Signs Vital Name Observation Time Observation Value Comments Source height 2022-03-02 17:00:00 70 [in_i] [facility] weight 2022-03-02 17:00:00 135.4 [lb_av] [facility] bmi 2022-03-02 17:00:00 19.43 kg/m2 [facility] oximetry 2022-03-02 17:00:00 98 % [facility] respiratory rate 2022-03-02 17:00:00 16 /min Comm on [facility] blood pressure 2022-03-02 17:00:00 131 mm[Hg] Common [facility] - systolic [facility] blood pressure 2022-03-02 17:00:00 63 mm[Hg] Common [facility] - diastolic [facility] Heart rate 2022-02-09 20:00:00 80 /min [facility] Respiratory rate 2022-02-09 20:00:00 20 /min Univ ersity of [place] [facility] [place] Oxygen saturation in 2022-02-09 20:00:00 100 /min University of Arterial blood by [facility] Pulse oximetry Branch Systolic blood 2022-02-09 19:59:00 144 mm[Hg] Univer sity of pressure [place] [facility] [place] Diastolic blood 2022-02-09 19:59:00 65 mm[Hg] Unive rsity of [facility] Body temperature 2022-02-09 19:31:00 36.44 [facility] ersity of [place] [facility] [place] Body height 2022-02-07 16:45:00 177.8 cm Universi ty of [place] [facility] [place] Body weight 2022-02-07 16:45:00 68.9 kg Universi ty [facility] [place] [facility] BMI 2022-02-07 16:45:00 21.79 kg/m2 Universi ty [facility] [place] [facility] [place] Heart rate 2022-02-09 19:50:00 71 /min Universi ty of [facility] Respiratory rate 2022-02-09 19:50:00 19 /min [facility] Oxygen saturation in 2022-02-09 19:50:00 98 /min University of Arterial blood by [facility] Pulse oximetry Branch Systolic blood 2022-02-09 19:46:00 127 mm[Hg] Univer sity of [facility] Diastolic blood 2022-02-09 19:46:00 82 mm[Hg] Unive rsity of [facility] Body temperature 2022-02-09 19:31:00 36.44 [facility] ersity of [place] [facility] [place] Body height 2022-02-07 16:45:00 177.8 cm Universi ty [facility] [place] [facility] Body weight 2022-02-07 16:45:00 68.9 kg [facility]i [facility] [place] [facility] BMI 2022-02-07 16:45:00 21.79 kg/m2 Universi [facility] of [facility] Procedures Procedure Date / Time Performing Source Performed Clinician [id number] 2022-02-21 [facility] 00:00:00 [facility] [id number] 2022-02-21 VOL[facility] 00:00:00 [facility] CT ABDOMEN PELVIS W CONTRAST 2022-02-10 Aleida Donis versity of 18:18:45 Prabhu Negrete [facility] CT THORAX W CONTRAST 2022-02-10 [facility] 18:16:55 Prabhu Negrete [facility] COLONOSCOPY (ENDO) 2022-02-[address] [facility] 19:07:32 [facility] COLONOSCOPY (ENDO) 2022-02-[address] [facility] 19:07:32 [facility] COLONOSCOPY 2022-02-09 [facility] 18:43:00 Prabhu Negrete [facility] ESOPHAGOGASTRODUODENOSCOPY 2022-02-09 [facility] 18:43:00 Prabhu [facility]rete [facility]ENDO[facility]02-[facility] 18:39[facility] EGD (ENDO) 2022-02-[address] 18:39:49 [facility] DAY SURGERY - ADC 2022-02-09 [facility] 05:01:00 Unassigned, No [place] [facility] Name Branch DISCLOSURE AND CONSENT, [facility] 2022-02-07 [facility] AND SURGICAL PROCEDURES 05:01:00 Unassigned, No [facility] dical Name Branch DISCLOSURE AND CONSENT, [facility] 2022-02-07 [facility] AND SURGICAL PROCEDURES 05:01:00 Unassigned, No [facility] dical Name Branch ASSIGNMENT OF BENEFITS 2019-12-26 [facility] of 22:14:03 Unassigned, No [place] [facility] Name Branch Encounters Start End Encounter Admission Attending Care Care Encounter Source Date/Time Date/Time Type Type Clinicians Facility Department ID 2022-03-02 Outpatient KEN Cooper [facility] [id number] Common 16:38:00 Tristan Spirit - [facility] 2022-03-02 2022-03-02 OFFICE [facility] [id number] Co mmon 00:00:00 00:00:00 VISIT NEW Spir it PT LEVEL 3 - [facility] 2022-02-21 2022-02-23 Inpatient ISAIAH Stoutjean-paulmadhavi [facility] DAYS G001 [id number] [facility] 05:29:00 16:06:00 , Zunilda 92 Cl [facility] 2022-02-10 2022-02-10 Outpatient R JOHAN [facility] [id number] Univers 12:06:04 23:59:00 PRABHU Tom o srini [facility] 2022-02-10 2022-02-10 [facility] [id number] Univers 12:06:04 23:59:00 Encounter e Prabhu VAUGHAN 350.1.13.10 ity [place] [id number] [address] 2022-02-10 2022-02-10 [facility] 1.2.840.114 [id number] Univers 12:04:54 12:05:00 Encounter e Prabhu VAUGHAN 350.1.13.10 [place] [id number] [address] 2022-02-09 2022-02-09 Outpatient R [facility] [id number] Univers 12:21:00 15:18:00 PRABHU Tom elizabeth mariah milligan [facility] 2022-02-09 2022-02-09 [facility] 1.2.840.114 [id number] Univers 12:21:00 15:18:00 Encounter e Prabhu LYONTON 350.1.13.10 [place] SURGICAL [id number] [facility] 071 Branch 2022-02-09 2022-02-09 Surgery [facility] 1.2.840.114 [id number] Univers 13:57:00 14:50:00 e Prabhu LYONTON 350.1.13.10 ity [place] SURGICAL [id number] [facility] 020 Branch 2020-02-27 2020-02-[address] [facility] [id number] [id number] 00:00:00 00:00:00 Patient Health 350.1.13.10 Does Not Surgical 4.2.7.2.686 Have A Specialti [id number] es [address] [place] 2020-02-27 2020-02-27 Telephone Pcp, [facility] 1.2.444.298 [id number] Univers 00:00:00 00:00:00 Patient Health 350.1.13.10 it y of Does [place] Surgical [place] Have A Specialti [id number] Dc dical 370 [facility] 2020-02-25 2020-02-25 Outpatient R TOMASAMARU [facility] [id number] Univers 16:00:00 16:00:00 SYDNEE ity of [facility] 2020-02-25 2020-02-25 Laboratory Lab, [facility] 1.2.840.114 [id number] 15:37:19 15:57:19 Only Fam Pob I Health 350.1.13.10 [place] 4.2.7.2.686 Professio [id number] nal [facility] 2020-02-25 2020-02-25 Laboratory Lab, [facility] Fam Pob I [facility] 1.2. 840.114 [id number] Univers 15:37:19 15:57:19 Only Anand, Sydnee Health 350.1.13.10 ity of [place] 4.2.7.2.686 [place] as Professio [phone] Dc dical [facility] 0[address] [place] [address] [facility] 2019-12-26 2019-12-26 Outpatient R [facility] [id number] Univers 18:00:00 18:00:00 ity of [facility] 2019-12-26 2019-12-26 Laboratory Lab, [facility] 1.2.840.114 [id number] 17:17:23 17:37:23 Only Fam Pob I Health 350.1.13.10 [place] 4.2.7.2.686 Professio [phone] nal [facility] 2019-12-26 2019-12-26 Laboratory Lab, [facility] Fam Pob I [facility] 1.2. 840.114 [id number] Univers 17:17:23 17:37:23 Only Unknown, Attending Health 350.1.13.10 ity of [place] 4.2.7.2.686 [place] as Professio [phone] Dc dical [facility] [address] [place] [address] One 2019-12-26 2019-12-26 Orders Doctor VALERIA 1.2.840.114 [id number] 00:00:00 00:00:00 Only Unassigned, VASQUEZ 350.1.13.10 [place] [facility] 4.2.7.2.686 [id number] 2019-12-26 2019-12-26 Orders Doctor VALERIA 1.2.840.114 [id number] Univers 00:00:00 00:00:00 Only Unassigned, VASQUEZ 350.1.13.10 ity of [place] [facility] 4.2.7.2.686 [place] as [phone] [facility] 009 Branch Results Test Description Test Time Test Comments Results Result Comments Source SURGICAL 2022-02-23 14:20:00 Test Item Value Reference Range Interpretation Comme nts SURGICAL RUN DATE: (test 02/25/22 [facility] GE 1 RUN TIME: 08 Specimen Inquiry RUN USER: INTERFACE code = PATIENT: SR) JOSE ALFREDONAS ALDANA [id number] [facility] #: [id number] AGE/SX: 76/M ROOM: [facility] RE02/21/22REG DR: Zunilda Helms : 44 BED: 1 DIS: 02/23/22 STATUS: DIS IN TLOC: SPEC #: [id number] RECD: 02/22/221014 STATUS: SERGEI REQ #: [id number] NICOLAS: 02/21/22- DR: Zunilda Helms MD NTERED: 02/22/22 SP TYPE: SURGICAL OTHR DR: ORDERED: [id number], ANATOMIC SPEC PROCEDURES: [id number] () TISSUES: A. COLON NOS - RIGHT ASCENDING ADDENDUM FINDINGS Addendum #1 Entered: This addenum is issued to report the results of ancillary studies performed and interpretedat [employer] (see below). Mismatch repair (MMR) IHC panel: [...] ON NEXT P AGE RUN DATE: 02/25/22 [facility] JUAN LIMA 2 RUN TIME: 804 Specimen Inquiry RUN USER: INTERFACE SPEC #: [id number] PATIENT: NAS GOETZ #[id number] (Continued) CAP CANCER SUMMARY (Continu ed) TUMORTumor [...] CONTINUED ON NEXT PAGE RUN DATE: 02/25/22 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 GROSS DESCRIPTION The specimen received in formalin in a container labeled with the p terry's name anddesignated right colon consists of a [...] the deep fat. It approaches the serosa. Production Support Developer secti ons of the tumorare submitted in cassettes C through G. Possible lymph nodes are submitted in cassettes H through O. Technical component performed at [facility],[address] [place] [address], [place] [address] Unless gross only, the diagnosis is based [...] as qualified to perform high complexity clin [facility] laboratory testing. MICROSCOPIC DESCRIPTION A microscopic examination was performed. CLINICAL INFORMATION ASCENDING COLON CANCER Signed Mg Gallagher 02/23/22 1420 END OF REPORT HGB [id number] 13:29:00 Test Item Value Reference Range Interpretation Comments HEMOGLOBIN (test code = HGB) 8.4 g/dL 12.5-16.9 L HEMATOCRIT (test code = HCT) 27.3 % 37.5-50.7 L BASIC METABOLIC [id number] 05:44:00 Test Item Value Reference Range Interpretation [...] recommended for arash for GFRby the Natformerly [facility] Found[facility] on for Adults.The GFR will not calculate if th e sex is unknown or if thepatient's ag e is <18 years. CREATININE (test 1.2 mg/dL 0.6-1.3 N code = CREAT) CALCIUM (test code = 8.5 mg/dL 8.0-10.5 N CA) [id number] 05:44:00 Test Item Value Reference Range Interpretation Comments PHOSPHOROUS (test code = PHOS) 4.6 MG/DL 2.5-4.9 N [id number] 05:44:00 Test Item Value Reference Range Interpretation Comments MAGNESIUM (test code = MAG) 2.11 mg/dL 1.80-2.40 N CALCIUM [id number] 05:44:00 Test Item Value Reference Range Interpretation Comments CALCIUM IONIZED (test code = MODE) 1.08 MMOL/L 1.09-1.30 L HGB [id number] 05:21:00 Test Item Value Reference Range Interpretation Comments HEMOGLOBIN (test code = HGB) 7.8 g/dL 12.5-16.9 L HEMATOCRIT (test code = HCT) 25.9 % 37.5-50.7 L BASIC METABOLIC [id number] 12:58:00 Test Item Value Reference Range Interpretation [...] 8.9 mg/dL 8.0-10.5 N CA) BASIC METABOLIC [id number] 08:43:00 Test Item Value Reference Range Interpretation [...] = 9.5 mg/dL 8.0-10.5 N CA) AG [id number] 08:43:00 Test Item Value Reference Range Interpretation Comments AG CARCINOEMBRYONIC (test code = 1.5 NG/ML 0.0-5.0 N CEA) CBC W/AUTO [id number] 08:40:00 Test Item Value Reference Range Interpretation [...] REQUIRED (test code NO = MDIFF) PROTHROMBIN [id number] 08:34:00 Test Item Value Reference Range Interpretation [...] (to prevent recurrent infar ct). 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 Views: 2 views. PA and Lateral COMPARISON: No relevant prior studies available. FINDINGS: Lungs: No consolidation or interstitial edema. Pleural spaces: There is blunting of the right costophrenic angle. No left pleural effusion. Heart/Mediastinum: The heart size is normal. Bones/joints: No acute abnormality. IMPRESSION: Blunting of right costophrenic angle may represent small pleural effusion or atelectasis. at 1132 Reported and signed by: Reid Sky M.D. CC: Jacy Atkinson FOUNTAIN SUPERVISOR; Zunilda Helms MD Technologist: Adelaide An yeny, RT(R) Trnscrd Date/Time/By: 02/18/2022 (2045) : By: [email or web address] Orig Print D/T: S: 02/18/2022 (014) PAGE 1 Signed Report
[2022-03-03 19:02] LABS: Absolute Lymphocytes (CBC) 1.3 K/uL (0.7-4.9); Hematocrit 25.1 % (39.6-49.0); MCV 71.3 fL (80-100); MPV 6.4 fL (7.6-11.3); RBC Red Blood Cell Count 3.52 M/uL (4.33-5.43)
[2022-03-03 19:17] LABS: Albumin 2.7 g/dL (3.4-5.0); Bilirubin Total 0.3 mg/dL (0.2-1.0); Protein, Total 6.8 g/dL (6.4-8.2)
--- NOTE | 2022-03-03 19:30 | RAD REPORT ---
EXAM DESCRIPTION: CT - Abdomen Pelvis W Contrast - 03/03/2022 7:14 pm CLINICAL HISTORY: Abdominal pain/colon cancer COMPARISON: none. TECHNIQUE: Computed axial tomography of the abdomen pelvis was obtained. 100 cc Isovue-300 was admin istered intravenously. Oral contrast was not requested which limits evaluation of bowel and appendix All CT scans are performed using dose optimization technique as appropriate and may include automated exposure control or mA/KV adjustment according to patient size. FINDINGS: The liver, spleen, pancreas, and adrenals appear unremarkable. Small renal cysts. Cholelithiasis. Gallbladder wall does not appear thickened. Stomach is mildly to moderately distended. Right maikel colectomy. Stool is present within the distal ileum. No obstruction. No evidence of divert iculitis. Small amount of ascites. Mild prostatic enlargement Mild stranding within the anterior subcutaneous fat pelvis. 2 x 1 centimeter fluid collection within the anterior upper pelvis abutting the posterior aspect of the abdominal wall near midline. IMPRESSION: Right hemicolectomy. Cholelithiasis without evidence of cholecystitis Mild to moderate gastric distention 2 x 1 centimeter fluid collection anterior upper pelvis probably is not significant
--- NOTE | 2022-03-03 20:27 | ER ---
Nurse's Notes [facility] Name: Ricky Goetz Age: 76 yrs Sex: Male : 1945 Arrival Date: 03/03/2022 Time: 18:27 Bed 24 [facility] MD: Diagnosis: Cellulitis of the Abdominal Wall Presentation: 03/03 18:35 Chief complaint: Patient states: Colon CA SX 10 days ago. Bottom of abdominal incision ss started leaking fluid 1 hour [employer]. No fever. Coronavirus screen: Vaccine status: Patient reports receiving the 2nd dose of the covid vaccine. Client denies travel out of the [place] in the last 14 days. At this time, the client does not indicate any symptoms associated with coronavirus-19. Ebola Screen: Patient denies travel to an Ebola-affected area in the 21 days before illness onset. Initial Sepsis Screen: Does the patient meet any 2 criteria? No. Patient's initial sepsis screen is negative. Does the patient have a suspected source of infection? Yes: Skin breakdown/wound. Risk Assessment: Do you want to hurt yourself or someone else? Patient reports no desire to harm self or others. Onset of symptoms was March 03, 2022. 18:35 Method Of Arrival: Ambulatory ss 18:35 Acuity: NANNETTE 3 ss Triage Assessment: 18:36 General: Appears in no apparent distress. Behavior is cooperative, appropriate for age. ss Pain: Denies pain. Derm: Reports fluid leaking from abdominal incision. Historical: - Allergies: 18:36 No Known Allergies; ss - PMHx: 18:36 Asthma; COPD; Emphysema; GERD; Grave's dx; ss - PSHx: 18:36 colon CA tumor removed; ss - Immunization history:: Client reports receiving the 2nd dose of the Covid vaccine. - Social history:: Smoking status: Patient denies any tobacco usage or history of. Screenin:30 Abuse screen: Denies threats or abuse. Nutritional screening: No deficits noted. em6 Tuberculosis screening: No symptoms or risk factors identified. 18:35 Fall Risk IV access (20 points). Total Morales Fall Scale indicates No Risk (0-24 pts). em6 Assessment: 18:35 General: Appears in no apparent distress. Behavior is cooperative. Pain: Denies pain. em6 Neuro: Level of Consciousness is awake, alert, obeys commands, Oriented to person, place, time, situation. Cardiovascular: Heart tones present Patient's skin is warm and dry. Respiratory: Airway is patent Respiratory effort is even, unlabored, Respiratory pattern is regular, symmetrical, Breath sounds are clear bilaterally. GI: Abdomen is round non-distended, redness noted in the horizontal 7 cm surgical incision in the belly button. drainage noted in the lower 3 cm. states no pain. surgery on 02/22/22 for tumor removal of the colon. Bowel sounds present X 4 quads. Abd is soft and non tender X 4 quads. : Alejandro in place to gravity drainage 100 ml of yellow urine noted no blood noted in urine. No pain stated by patient. EENT: No signs and/or symptoms were reported regarding the EENT system. Derm: Wound noted umbilical area Wound is 7 cm. horizontal. redness and drainage noted. no pain stated. Musculoskeletal: Circulation, motion, and sensation intact. Range of motion: intact in all extremities. 19:35 Reassessment: Patient appears in no apparent distress at this time. No changes from em6 previously documented assessment. Patient and/or family updated on plan of care and expected duration. Pain level reassessed. Patient is alert, oriented x 3, equal unlabored respirations, skin warm/dry/pink. 20:35 Reassessment: Patient appears in no apparent distress at this time. No changes from em6 previously documented assessment. Patient and/or family updated on plan of care and expected duration. Pain level reassessed. Patient is alert, oriented x 3, equal unlabored respirations, skin warm/dry/pink. Vital Signs: 18:35 BP 152 / 77; Pulse 79; Resp 17; Temp 98.5; Pulse Ox 99% ; Weight 62.6 kg; Height 5 ft. ss 10 in. (177.80 cm); Pain 0/10; 19:00 BP 148 / 82; Pulse 82; Resp 18; Pulse Ox 99% on R/A; em6 20:00 BP 131 / 63; Pulse 78; Resp 18; Pulse Ox 99% on R/A; em6 18:35 Body Mass Index 19.80 (62.60 kg, 177.80 cm) ED Course: 18:27 Patient arrived in ED. ja2 18:29 Jason Helton PA is PHCP. jmm 18:29 Ricky Welsh DO is Attending Physician. jmm 18:30 Claire Acharya, RN is Primary Nurse. em6 18:35 Arm band placed on Patient placed in an exam room, on a stretcher. ss 18:35 Bed in low position. Call light in reach. Side rails up X2. Pulse ox on. NIBP on. Warm em6 blanket given. 18:36 Triage completed. ss 18:45 Inserted saline lock: 20 gauge in right antecubital area, using aseptic technique. em6 Blood collected. 18:47 CBC with Diff Sent. em6 18:47 CMP Sent. em6 18:47 Lipase Sent. em6 19:16 Abdomen In Process Unspecified. EDMS 20:07 Type And Screen Sent. em6 20:39 No provider procedures requiring assistance completed. IV discontinued, intact, em6 bleeding controlled, No redness/swelling at site. Pressure dressing applied. Administered Medications: 20:10 Drug: Doxycycline 100 mg Route: PO; em6 20:41 Follow up: Response: No adverse reaction em6 Medication: 20:39 VIS not applicable for this client. em6 Outcome: 20:27 Discharge ordered by MD. jmm 20:39 Discharged to home ambulatory, with significant other. em6 20:39 Condition: stable 20:39 Discharge instructions given to patient, family, Instructed on discharge instructions, follow up and referral plans. medication usage, wound care, Demonstrated understanding of instructions, follow-up care, medications, wound care, Prescriptions given X 1. 20:41 Patient left the ED. em6 Signatures: Dispatcher [employer] EDMS Jason Helton PA PA jmm Smirch, Shelby, ASTRID RN Tiffany Swanson Claire Acharya, RN RN em6
--- NOTE | 2022-03-03 20:27 | EDPHYS ---
Physician Documentation [facility] Name: Ricky Goetz Age: 76 yrs Sex: Male : 1945 Arrival Date: 03/03/2022 Time: 18:27 Bed 24 Private MD: ED Physician Ricky Welsh HPI: 03/03 18:34 This 76 yrs old Male presents to ER via Ambulatory with complaints of Post Surgical jmm Bleeding. 18:34 This is a 76-year-old male with history of asthma, COPD, emphysema, Graves' disease, jmm colonic mass that presents emerged department today status post mass removal. Patient denies any fever chills dark stools, vomiting but states approximately an hour prior to arrival fluid began to leak out of his wound (incision site). Historical: - Allergies: 18:36 No Known Allergies; ss - PMHx: 18:36 Asthma; COPD; Emphysema; GERD; Grave's dx; ss - PSHx: 18:36 colon CA tumor removed; ss - Immunization history:: Client reports receiving the 2nd dose of the Covid vaccine. - Social history:: Smoking status: Patient denies any tobacco usage or history of. ROS: 18:34 Constitutional: Negative for fever, chills, and weight loss, Cardiovascular: Negative jmm for chest pain, palpitations, and edema, Respiratory: Negative for shortness of breath, cough, wheezing, and pleuritic chest pain. 18:34 Skin: Positive for erythema. 18:34 All other systems are negative. Exam: 18:34 Constitutional: This is a well developed, well nourished patient who is awake, alert, jmm and in no acute distress. Head/Face: atraumatic. Eyes: EOMI, no conjunctival erythema appreciated ENT: Moist Mucus Membranes Neck: Trachea midline, Supple Chest/axilla: Normal chest wall appearance and motion. Cardiovascular: Regular rate and rhythm. No edema appreciated Respiratory: Normal respirations, no respiratory distress appreciated 18:34 Back: Normal ROM Skin: General appearance color normal MS/ Extremity: Moves all extremities, no obvious deformities appreciated, no edema noted to the lower extremities Neuro: Awake and alert Psych: Behavior is normal, Mood is normal, Patient is cooperative and pleasant 18:34 Abdomen/GI: Vertical incision noted with some serosanguineous drainage, nontender to palpation, mild erythema noted around the wound edges.. Vital Signs: 18:35 BP 152 / 77; Pulse 79; Resp 17; Temp 98.5; Pulse Ox 99% ; Weight 62.6 kg; Height 5 ft. ss 10 in. (177.80 cm); Pain 0/10; 19:00 BP 148 / 82; Pulse 82; Resp 18; Pulse Ox 99% on R/A; em6 20:00 BP 131 / 63; Pulse 78; Resp 18; Pulse Ox 99% on R/A; em6 18:35 Body Mass Index 19.80 (62.60 kg, 177.80 cm) ss MDM: 18:34 Patient medically screened. [facility] 20:25 Data reviewed: vital signs, nurses notes. Counseling: I had a detailed discussion with jalen the patient and/or guardian regarding: the historical points, exam findings, and any diagnostic results supporting the discharge/admit diagnosis, lab results, radiology results, the need for outpatient follow up, to return to the emergency department if symptoms worsen or persist or if there are any questions or concerns that arise at home. ED course: The patient's hemoglobin was 8. I did discuss this further with the patient himself that he was anemic prior to his surgery. They do not have previous labs that I can compare. Does not have any weakness or fatigue. Denies any type of dark stools or bloody stools or vomiting. Patient will be treated with an oral antibiotic due to concerns for an incisional cellulitis. Otherwise advised to follow-up with his colorectal surgeon and otherwise given strict return precautions. The patient and understood and agreed with plan of care.. 03/03 18:35 Order name: CBC with Diff; Complete Time: 19:11 [facility] 03/03 18:35 Order name: CMP; Complete Time: 19:17 [facility] 03/03 18:35 Order name: Lipase; Complete Time: 19:17 [facility] 03/03 18:53 Order name: Abdomen ; Complete Time: 19:36 [facility] 03/03 19:11 Order name: Type And Screen [facility] 03/03 18:35 Order name: IV Saline Lock; Complete Time: 18:47 [facility] 03/03 18:35 Order name: Labs collected and sent; Complete Time: 18:47 [facility] Administered Medications: 20:10 Drug: Doxycycline 100 mg Route: PO; em6 20:41 Follow up: Response: No adverse reaction em6 Disposition Summary: 03/03/22 20:27 Discharge Ordered Location: Home [facility] Condition: Stable [facility] Diagnosis - Cellulitis of the Abdominal Wall [facility] Followup: [facility] - With: Private Physician - When: 2 - 3 days - Reason: Recheck today's complaints, Continuance of care, Re-evaluation by your physician Discharge Instructions: - Discharge Summary Sheet [facility] - Cellulitis, Adult [facility] Forms: - Medication Reconciliation Form [facility] - Thank You Letter [facility] - Antibiotic Education [facility] - Prescription Opioid Use [facility] Prescriptions: - Doxycycline Hyclate 100 mg Oral Tablet - take 1 tablet by ORAL route every 12 hours; 20 tablet; Refills: 0, Product [facility] Selection Permitted Addendum: 03/05/2022 15:18 Co-signature as Attending Physician, Ricky Welsh DO I was immediately available on-site m s3 in the Emergency Department for consultation in the care of the patient. Signatures: Dispatcher [employer] EDMS Jason Helton PA PA jmm Smirch, Shelby, RN RN Ricky Garduno DO DO ms3 Claire Acharya RN RN em6
[2022-03-03] MEDS ORDERED: DOXYCYCLINE 100 MG CAP PO ONE (20:34)
[2022-03-03 21:04] VITALS: TEMP 98.5; O2SAT 99
[2022-03-03 21:11] VITALS: BP 131/63
== END 2022-03-03 20:41 | disposition home or self-care (01) ==
LOC: ER 18:23
DX: L03.311 Cellulitis of abdominal wall (principal); Z98.890 Other specified postprocedural states; Z85.038 Personal history of other malignant neoplasm of large intestine
CPT/HCPCS: 85025; 36415; 86900; 86850; 82565; 86901; 83690; 80053; 74177; 99284; Q9967

== ENCOUNTER 2022-04-01 13:49 | Emergency (ER) | payer OTHER ==
--- OUTSIDE RECORDS SUMMARY | 2022-04-01 13:53 | XMS REPORT | Continuity of Care Document ---
:1945 Author Organization [facility] t Address [address] [place] [place] [address] Care Team Providers Name Role Phone PCP, PATIENT DOES NOT HAVE A Primary Care Physician UnavailTristan Alcantar Attending Clinician Unavailable Zunilda Helms Attending Clinician Unavailable PRABHU DONIS Attending Clinician Unavailable Prabhu Donis MD Attending Clinician Pcp, Patient Does Not Have A Attending Clinician [phone] SYDNEE WALKER Attending Clinician Unavailable Lab, Adc Fam Pob I Attending Clinician Unavailable Sydnee Ovalles Attending Clinician Unknown, Attending Attending Clinician Unavailable Doctor Unassigned, [place] Attending Clinician Unavailable Zunilda Helms Admitting Clinician Unavailable PRABHU DONIS Admitting Clinician Unavailable Prabhu Donis MD Admitting Clinician Payers Payer Name Policy Type Policy Number Effective Date Expiration Date S jason MEDICARE PART A [id number] 2009 \T\ B 00:00:00 [employer] INDEMNITY [id number] 2013 00:00:00 Problems Condition Condition Condition Status Onset Resolution Last Treating Co mments Source Name Details Category Date Date Treatment Clinician Date [id number] Transient Problem Com mon iatrogenic Spirit urethral - 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 [facility] [id number] BPH loc w Problem Com mon urin Spirit obs/LUTS - [facility] Allergies, Adverse Reactions, Alerts Allergy Allergy Status Severity Reaction(s) Onset Inactive Treating Comm ents Source Name Type Date Date Clinician No Known DA Active U 2021-04 [facility] Allergie 04-20 Clear s 00:00: Roe 00 [facility] NO KNOWN Drug Active Univers ALLERGIE Class ity of [facility] Social History Social Habit Start Date Stop Date Quantity Comments Source History of Common Spirit - Tobacco Use [facility] Sex Assigned At Common Sp mita - [facility] Alcohol intake 2022-02-10 2022-02-10 0 /d University of 00:00:00 00:00:00 [facility] Exposure to 2022-01-29 2022-02-08 Not sure [facility] SARS-CoV-2 00:00:00 15:36:00 [facility] [place] Tobacco use and 2017-09-25 2017-09-25 Smokeless tobacco Un iversity of exposure 00:00:00 00:00:00 non-user [facility] Tobacco Comment 2017-09-25 2017-09-25 Recently quit Univer sity of 00:00:00 00:00:00 smoking [facility] Smoking Status Start Date Stop Date Source Former Smoker 2022-03-16 00:00:00 2022-03-16 00:00:00 Common S [facility] Medications Ordered Filled Start Stop Current Ordering Indication Dosage Frequency Signature Comments Components Source Medication Medication Date Date Medication? Clinician (SIG) Name Name Flomax 0.4 Flomax 0.4 2021-04- No 1{capsu QD Flomax 0.4 MG MG 05-02 le} MG 00:00: 00:00 00 :00 Flomax 0.4 Flomax 0.4 2021-04- No 1{capsu QD Flomax 0.4 MG MG 05-02 le} MG 00:00: 00:00 00 :00 iopamidol 2021-04- No [id number] 69mL 69 mL, Univers (ISOVUE 04-12 Intravenou ity o f 370-500 mL) 19:15: 18:17 s, ONCE, 1 [place] injection 00 :00 dose, On Medica l 69 mL Ludmila Branch 02/10/22 at 1415, Routine water for 2021-04- No PRN, Univers irrigation 04-11 Starting ity of irrigation 19:02: 19:52 on Mon [place] solution 00 :02/09/22 at Medic al 1402, Branch Until Mon02/09/22 at 1452, Routine, Intra-op simethicone 2021-04- No PRN, Unive rs (GAS RELIEF 04-11 Starting ity of (SIMETHICON 19:02: 19:52 on Mon [place] as E)) 40 00 :17 02/09/22 at Medical mg/0.6 mL 1402, Branch drops Until Mon02/09/22 at 1452, Routine, Intra-op lactated 2021-04- No 1000mL at 42 [facility] rs ringers IV 04-11 11-02 mL/hr, ity of infusion 17:45: 17:39 1,000 mL, [place] as 1,000 mL 00 :00 IV Medical Infusion, Branch ONCE, 1 dose, On Mon02/09/22 at 1245, Routine, DSU Pre-op lactated 2021-04- No 1000mL at 42 [facility] rs ringers IV 04-11 11-02 mL/hr, ity of infusion 17:45: 17:39 1,000 mL, [place] as 1,000 mL 00 :00 IV Medical Infusion, Branch ONCE, 1 dose, On Mon02/09/22 at 1245, Routine, DSU Pre-op omeprazole 2021-04 Yes 20mg Take 20 mg U nivers (PRILOSEC) 04-11 by mouth ity o f 20 mg 15:19: daily. [place] capsule 55 Medical Branch budesonide- 2021-04 Yes [...] for Wheezing or Shortness of Breath. ranitidine 2022-1 Yes 150mg Take 150 Un billy 150 [...] Melatonin 10 MG 10 MG 10 MG Albuterol Albuterol No 1{puff_ 6xD Albuterol Sulfate 108 Sulfate 108 as_need Sulfate (90 Base) (90 Base) ed} 108 (90 MCG/ACT MCG/ACT Base) MCG/ACT Melatonin Melatonin No Melatonin 10 MG 10 MG 10 MG Benadryl Benadryl No 1{capsu QD Benadryl Allergy 25 Allergy 25 le_at_b Allergy 25 MG MG edtime_ MG as_need ed} Advil PM Advil PM No 2{table QD Advil PM 200-38 MG 200-38 MG ts_at_b 200-38 MG edtime_ as_need ed} Sildenafil Sildenafil No 1{table QD Sildenafil Citrate 100 Citrate 100 t_as_ne Citrate MG MG eded} 100 MG Gabapentin Gabapentin No 1{capsu QD Gabapentin 300 MG 300 MG le} 300 MG Vital Signs Vital Name Observation Time Observation Value Comments Source height 2022-03-16 15:00:00 70 [in_i] Common [facility] weight 2022-03-16 15:00:00 130 [lb_av] [facility] temperature 2022-03-16 15:00:00 98.6 [degF] [facility] bmi 2022-03-16 15:00:00 18.65 kg/m2 [facility] oximetry 2022-03-16 15:00:00 96 % [facility] respiratory rate 2022-03-16 15:00:00 18 /min Comm on [facility] blood pressure 2022-03-16 15:00:00 166 mm[Hg] Common [facility] systolic [facility] blood pressure 2022-03-16 15:00:00 68 mm[Hg] Common [facility] diastolic [facility] height 2022-03-02 17:00:00 70 [in_i] [facility] weight 2022-03-02 17:00:00 135.4 [lb_av] [facility] bmi 2022-03-02 17:00:00 19.43 kg/m2 [facility] oximetry 2022-03-02 17:00:00 98 % [facility] respiratory rate 2022-03-02 17:00:00 16 /min Comm on [facility] blood pressure 2022-03-02 17:00:00 131 mm[Hg] Common [facility] systolic [facility] blood pressure 2022-03-02 17:00:00 63 mm[Hg] Common [facility] - diastolic [facility] Heart rate 2022-02-09 20:00:00 80 /min [facility] Medical Branch Respiratory rate 2022-02-09 20:00:00 20 /min [facility] Medical [place] Oxygen saturation in 2022-02-09 20:00:00 100 /min [facility] blood by [facility] Pulse oximetry Branch Systolic blood 2022-02-09 19:59:00 144 mm[Hg] Univer sity of pressure [place] [facility] [place] Diastolic blood 2022-02-09 19:59:00 65 mm[Hg] Unive rsity of [facility] Body temperature 2022-02-09 19:31:00 36.44 Debbie [facility] Body height 2022-02-07 16:45:00 177.8 cm Universi ty of [facility] Body weight 2022-02-07 16:45:00 68.9 kg Universi ty of [place] [facility] [place] BMI 2022-02-07 16:45:00 21.79 kg/m2 Universi ty [facility] Heart rate 2022-02-09 19:50:00 71 /min Universi ty [facility] Respiratory rate 2022-02-09 19:50:00 19 /min [facility] Oxygen saturation in 2022-02-09 19:50:00 98 /min University of Arterial blood by [facility] Pulse oximetry Branch Systolic blood 2022-02-09 19:46:00 127 mm[Hg] Univer sity of [facility] Diastolic blood 2022-02-09 19:46:00 82 mm[Hg] Unive rsity of [facility] Body temperature 2022-02-09 19:31:00 36.44 Debbie [facility] Body height 2022-02-07 16:45:00 177.8 cm Universi ty [facility] Body weight 2022-02-07 16:45:00 68.9 kg Universi ty [facility] BMI 2022-02-07 16:45:00 21.79 kg/m2 Universi [facility] Procedures Procedure Date / Time Performing Source Performed Clinician [id number] 2022-02-21 VOLTH [facility] 00:00:00 [facility] [id number] 2022-02-21 VOLTH [facility] 00:00:[address] [facility] [address] ABDOMEN PELVIS W CONTRAST 2022-02-[address] [facility] 18:18:45 Prabhu Negrete [facility] CT THORAX W CONTRAST 2022-02-10 Gagandeep [facility] 18:16:55 Prabhu Negrete [place] [facility] COLONOSCOPY (ENDO) 2022-02-09 Allison, [facility] of 19:07:32 [facility] COLONOSCOPY (ENDO) 2022-02-09 Allison, [facility] of 19:07:32 [facility] COLONOSCOPY 2022-02-09 [facility] 18:43:00 Prabhu Negrete [facility] ESOPHAGOGASTRODUODENOSCOPY 2022-02-09 [facility] of 18:43:00 Prabhu Negrete [facility] EGD (ENDO) 2022-02-[facility] 18:39:49 [facility] EGD (ENDO) 2022-02-09 [facility] of 18:39:49 [facility] DAY SURGERY - ADC 2022-02-09 [facility] 05:01:00 Unassigned, No [place] [facility] Name Branch DISCLOSURE AND CONSENT, [facility] 2022-02-07 [facility] AND SURGICAL PROCEDURES 05:01:00 Unassigned, No [facility] dical Name Branch DISCLOSURE AND CONSENT, [facility] 2022-02-07 [facility] AND SURGICAL PROCEDURES 05:01:00 Unassigned, No [place] In dical Name Branch ASSIGNMENT OF BENEFITS 2019-12-26 [facility] of 22:14:03 Unassigned, No [place] [facility] Name Branch Encounters Start End Encounter Admission Attending Care Care Encounter Source Date/Time Date/Time Type Type Clinicians Facility Department ID 2022-03-02 Outpatient KEN Cooper STLMLC [id number] 2 Common 16:38:00 Tristan [id number] Spirit - [facility] 2022-03-30 2022-03-30 Outpatient [facility]H [id number] [facility] 09:27:00 09:27:00 , Zunilda 58 Cl [facility] 2022-03-16 2022-03-16 OFFICE STLMLC STLMLC [id number] Co mmon 00:00:00 00:00:00 VISIT Shun ESTAB PT - [facility] LEVEL 5 [facility] 2022-03-02 2022-03-02 OFFICE STLMLC STLMLC [id number] Co mmon 00:00:00 00:00:00 VISIT GRACIELA Hopkins it PT LEVEL 3 - [facility] 2022-02-21 2022-02-23 Inpatient EL Voloyiannis [facility] [id number] [facility] 05:29:00 16:06:00 , Zunilda 92 Cl [facility] 2022-02-10 2022-02-10 Outpatient R [facility] [id number] Univers 12:06:04 23:59:00 PRABHU Tom f [facility] 2022-02-10 2022-02-10 [facility] 1.2.840.114 [id number] Univers 12:06:04 23:59:00 Encounter ePrabhu [place] 350.1.13.10 ity of [place] 4.2.7.2.686 [facility] [id number] [facility] [address] [place] 2022-02-10 2022-02-10 [facility] 1.2.840.114 [id number] Univers 12:04:54 12:05:00 Encounter ePrabhu [place] 350.1.13.10 ity of [place] 4.2.7.2.686 [facility] [id number] [address] 2022-02-09 2022-02-09 Outpatient R [facility] [id number] Univers 12:21:00 15:18:00 PRABHU Tom f [facility] 2022-02-09 2022-02-09 [facility] 1.2.840.114 [id number] Univers 12:21:00 15:18:00 Encounter ePrabhu [place] 350.1.13.10 ity [place] 4.2.7.2.686 [place]ICAL [id number] [facility] 071 Branch 2022-02-09 2022-02-09 Surgery [facility] 1.2.840.114 [id number] Univers 13:57:00 14:50:00 ePrabhu [place] 350.1.13.10 [place] 4.2.7.2.686 [place] SUR[place]ICAL [id number] [facility] 020 Branch 2020-02-27 2020-02-27 [facility] [id number] Univers 00:00:00 00:00:00 Patient Health 350.1.13.10 it y of Does Not Surgical 4.2.7.2.686 [place] Have A Specialti [id number] [facility] [address] [facility] 2020-02-27 2020-02-27 Telephone Pcp, [facility] [id number] 00:00:00 00:00:00 Patient Health 350.1.13.10 Does Not Surgical 4.2.7.2.686 Have A Specialti [id number] [address] 2020-02-25 2020-02-25 Outpatient R ANAND [facility] [id number] Univers 16:00:00 16:00:00 SYDNEE ity [facility] 2020-02-25 2020-02-25 Laboratory Lab, [facility] Fam Pob I [facility] 1.2. 840.114 [id number] Univers 15:37:19 15:57:19 Only Anand [facility] 350.1.13.10 ity of [place] 4.2.7.2.686 [place] as Professio [phone] [address] Office [address] One 2020-02-25 2020-02-25 Laboratory Lab, [facility] 1..840.114 [id number] 15:37:19 15:57:19 Only Fam Pob I Health 350.1.13.10 [place] 4.2.7.2.686 Professio [phone] [place] [address] [address] 2019-12-26 2019-12-26 Outpatient R [facility] [id number] Univers 18:00:00 18:00:00 ity [facility] 2019-12-26 2019-12-26 Laboratory Lab, [facility] Fam Pob I [facility] 1.2. 840.114 [id number] Univers 17:17:23 17:37:23 Only Unknown, Attending Health 350.1.13.10 ity of [place] 4.2.7.2.686 [place] as Professio [phone] [address] 2019-12-26 2019-12-26 Laboratory Lab, [facility] 1.2.840.114 [id number] 17:17:23 17:37:23 Only Fam Pob I Health 350.1.13.10 [place] 4.2.7.2.686 Professio [phone] nal [address] One 2019-12-26 2019-12-26 Orders Doctor VALERIA 1.2.840.114 [id number] Univers 00:00:00 00:00:00 Only Unassigned, VASQUEZ 350.1.13.10 ity of [place] [facility] 4.2.7.2.686 [place] as [id number] [facility] 009 Branch 2019-12-26 2019-12-26 Orders Doctor VALERIA 1.2.840.114 [id number] 00:00:00 00:00:00 Only Unassigned, VASQUEZ 350.1.13.10 [place] [facility] 4.2.7.2.686 [id number] 009 Results Test Description Test Time Test Comments Results Result Comments Source - XR CHEST 1 V 2022-03-30 00:00:00 [facility] : 1945 Sex: M FAX: Flip Sweet [phone] [place]: P[address] St: REG Name: JOANIENAS [facility] : 1945 Age/S: 76/M [address] [place] [address] Unit #: [id number] [place]: [place] [address] Phys: Zunilda Helms MD Acct: [id number] Dis Date: Status: REG REF PHONE #: [phone] Exam Date: 03/30/2022 09 FAX #: [phone] Reason: PORT A CATH PLACEMENT EXAMS: CPT CODE: [id number] XR CHEST 1 V 06626 PROCEDURE INFORMATION: Exam: XR Chest Exam date and time: 03/30/2022 9:02 AM Age: 76 years old Clinical indication: Device placement; Other: Port a cath placement TECHNIQUE: Imaging protocol: Radiologic exam of the chest. Views: 1 view. COMPARISON: DX XR CHEST 2 V 02/18/2022 8:26 AM FINDINGS: Tubes, catheters and devices: Left subclavian chest port terminating in the distal SVC. Lungs: No focal consolidation. Pleural spaces: Unremarkable. No pleural effusion. No pneumothorax. Heart/Mediastinum: Unremarkable. Bones/joints: Unremarkable. IMPRESSION: Left subclavian chest port terminating in the distal SVC. No pneumothorax. at 1024 Reported and signed by: Gonzalez Akers M.D. CC: Zunilda Helms MD Technologist: Joshua Garcia; RT Syed(R) Trnscrd Date/Time/By: 03/30/2022 (1024) : By: [email or web address] Orig Print D/T: S: 03/30/2022 (1024) PAGE 1 Signed Report SURGICAL 2022-02-23 14:20:00 Test Item Value Reference Range Interpretation Comme nts SURGICAL RUN DATE: (test 02/25/22 [place] - LAB P AGE 1 RUN TIME: 804 Specimen Inquiry RUN USER: INTERFACE code = PATIENT: NAS VOSS [id number] LOC: STACEY #: [id number] AGE/SX: 76/M ROOM: [facility] RE02/21/22REG DR: Zunilda Helms : 43 BED: 1 DIS: 02/23/22 STATUS: DIS IN TLOC: SPEC #: [id number] RECD: 02/22/22- 5 STATUS: SERGEI NICK #: [id number] NICOLAS: 02/21/22- SUBM DR: Zunilda Helms MD NTERED: 02/22/22 SP TYPE: SURGICAL OTHR DR: ORDERED: 28266, ANATOMIC SPEC PROCEDURES: [id number] (02/08) TISSUES: A. COLON NOS - RIGHT ASCENDING ADDENDUM FINDINGS Addendum #1 Entered: This addenum is issued to report the results of ancillary studies performed and interpretedat Webdyn (see below). Mismatch repair (MMR) IHC panel: [...] Addendum Signed SIGNATURE ON FILE Mg Gallagher Jesús 02/25/22804 CAP CANCER SUMMARY COLON AND RECTUM: Re section, Including Transanal Disk Excision of Rectal Neoplasms 2020 Version 4.2.0.1 SPECIMENProc edure: Right hemicolectomyMacroscopic Evaluation of Mesorectum (required for rectal cancers): Not applicable CONTINUED ON NEXT P AGE RUN DATE: 02/25/22 [place] - JUAN MCGRATH GE 2 RUN TIME: 804 Specimen Inquiry RUN USER: INTERFACE SPEC #: [id number] PATIENT: NAS GOETZ #[id number] (Continued) CAP CANCER SUMMARY (Continue d) TUMORTumor Site: Cecum/ascending colonHistologic Type: AdenocarcinomaHistologic Gra [...] CONTINUED ON NEXT PAGE RUN DATE: 02/25/22 [facility] 3 RUN TIME: 804 Specimen Inquiry RUN USER: INTERFACE SPEC #: [id number] PATIENT: NAS GOETZ #[id number] (Continued) FINAL DIAGNOSIS Right colon, hemicolectomy: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 GROSS DESCRIPTION The specimen received in formalin in a container labeled with the p atvincent's name anddesignated right colon consists of a [...] the deep fat. It approaches the serosa. Pilot Plant Supervisor secti ons of the tumorare submitted in cassettes C through G. Possible lymph nodes are submitted in cassettes H through O. Technical component performed at [address], [place] [address] Unless gross only, the diagnosis is based [...] as qualified to perform high complexity clin [facility] laboratory testing. MICROSCOPIC DESCRIPTION A microscopic examination was performed. CLINICAL INFORMATION ASCENDING COLON CANCER Signed Mg Gallagher Jesús 02/23/22 1420 END OF REPORT HGB [id number] 13:29:00 Test Item Value Reference Range Interpretation Comments HEMOGLOBIN (test code = HGB) 8.4 g/dL 12.5-16.9 L HEMATOCRIT (test code = HCT) 27.3 % 37.5-50.7 L BASIC METABOLIC [id number] 05:44:00 Test Item Value Reference Range Interpretation [...] the recommended for arash for GFRby the [facility] Kid[facility] Foundati on for Adults.The GFR will not calculate if th e sex is unknown or if thepatient's ag e is <18 years. CREATININE (test 1.2 mg/dL 0.6-1.3 N code = CREAT) CALCIUM (test code = 8.5 mg/dL 8.0-10.5 N CA) [id number] 05:44:00 Test Item Value Reference Range Interpretation Comments PHOSPHOROUS (test code = PHOS) 4.6 MG/DL 2.5-4.9 N [id number] 05:44:00 Test Item Value Reference Range Interpretation Comments MAGNESIUM (test code = MAG) 2.11 mg/dL 1.80-2.40 N CALCIUM [id number] 05:44:00 Test Item Value Reference Range Interpretation Comments CALCIUM IONIZED (test code = MODE) 1.08 MMOL/L 1.09-1.30 L HGB [id number] 05:21:00 Test Item Value Reference Range Interpretation Comments HEMOGLOBIN (test code = HGB) 7.8 g/dL 12.5-16.9 L HEMATOCRIT (test code = HCT) 25.9 % 37.5-50.7 L BASIC METABOLIC [id number] 12:58:00 Test Item Value Reference Range Interpretation [...] the recommended for arash for GFRby the Nat nal Kidney Foundati on for Adults.The GFR will not calculate if th e sex is unknown or if thepatient's ag e is <18 years. CREATININE (test 1.2 mg/dL 0.6-1.3 N code = CREAT) CALCIUM (test code = 8.9 mg/dL 8.0-10.5 N CA) BASIC METABOLIC [id number] 08:43:00 Test Item Value Reference Range Interpretation [...] the recommended for arash for GFRby the [facility] Kidney Foundati on for Adults.The GFR will not calculate if th e sex is unknown or if thepatient's ag e is <18 years. CREATININE (test 1.1 mg/dL 0.6-1.3 N code = CREAT) CALCIUM (test code = 9.5 mg/dL 8.0-10.5 N CA) AG [id number] 08:43:00 Test Item Value Reference Range Interpretation Comments AG CARCINOEMBRYONIC (test code = 1.5 NG/ML 0.0-5.0 N CEA) CBC W/AUTO [id number] 08:40:00 Test Item Value Reference Range Interpretation [...] REQUIRED (test code NO = MDIFF) PROTHROMBIN [id number] 08:34:00 Test Item Value Reference Range Interpretation [...] (to prevent recurrent infar ct). THROMBOPLASTIN TIME [id number] 08:34:00 Test Item Value Reference Range Interpretation Comments THROMBOPLASTIN TIME 29.4 Seconds 25.0-39.5 N Therape utic Range: PARTIAL (test code = 50.4 - 88.3 Seconds PTT) Effective 07/24/2018 - XR CHEST 2 [id number] 00:00:00 [facility] [place] : 1945 Sex: M FAX: Jacy Atkinson [place]: St: PRE FAX: Flip Sweet [phone] Name: NAS GOETZ [facility] : 1945 Age/S: 76/M [address] [place] [address] Unit #: [id number] Loc: BEATRI[place] [address] Phys: Jacy Atkinson DRY COLOR TESTER Acct: [id number] Dis Date: Status: PRE IN PHONE #: [phone] Exam Date: 02/18/2022825 FAX #: [phone] Reason: PREOP EXAMS: CPT CODE: [id number] XR CHEST 2 V 30467 PROCEDURE INFORMATION: Exam: XR Chest Exam date [...] by: Reid Sky M.D. CC: Jacy Atkinson DRY COLOR TESTER; Zunilda Helms MD Technologist: RT Danilo(R) Trnyosefrd Date/Time/By: 02/18/2022 (1132) : By: [email or web address] Orig Print D/T: S: 02/18/2022 (1132) PAGE 1 Signed Report
[2022-04-01 14:36] LABS: Absolute Lymphocytes (CBC) 1.8 K/uL (0.7-4.9); Hematocrit 32.1 % (39.6-49.0); Lymphocytes % 10.8 % (15.3-44.8); MCV 75.6 fL (80-100); MPV 7.4 fL (7.6-11.3); RBC Red Blood Cell Count 4.25 M/uL (4.33-5.43)
[2022-04-01 14:53] LABS: Albumin 3.7 g/dL (3.4-5.0); Bilirubin Total 0.3 mg/dL (0.2-1.0); Potassium 3.8 mmol/L (3.5-5.1); Protein, Total 7.1 g/dL (6.4-8.2)
[2022-04-01 15:47] LABS: Urine Blood Negative (Negative); Urine Glucose Negative (Negative); Urine Protein Negative (Negative); Urine Specific Gravity 1.025 (1.005-1.030); Urine pH 5.5 (5.0-7.0)
--- NOTE | 2022-04-01 15:49 | RAD REPORT ---
EXAM DESCRIPTION: CT - Abdomen Pelvis W Contrast - 04/01/2022 3:17 pm CLINICAL HISTORY: abd pain, constipation, urinary retention COMPARISON: Abdomen Pelvis W Contrast dated 03/03/2022 TECHNIQUE: Biphasic, helical CT imaging of the abdomen and pelvis was performed following 100 ml non -ionic IV contrast. Oral contrast: No. All CT scans are performed using dose optimization technique as appropriate and may include automated exposure control or mA/KV adjustment according to patient size. FINDINGS: Lung base scarring is present but no acute lung base finding seen. No cardiomegaly or ankush cardial effusion. The liver, spleen, and pancreas show no suspicious findings. Small gallstone is seen which has been p reviously described. No acute gallbladder or biliary tree finding. Symmetric renal function is seen with no hydronephrosis or suspicious renal mass. No pyelonephritis o r acute parenchymal process. Small renal cysts match prior imaging. Urinary bladder is distended but not dilated. Prostate gland shows heterogeneous enhancement but no discrete mass or gross abnormal en largement. No invasion of pelvic side wall. Fluid or low-density area along the inner table of the ri ght ischium matches prior examination. No adrenal abnormalities. No stomach or small bowel acute finding. Stomach assessment is limited due to absence of intraluminal content. Right hemicolectomy surgical changes are present. Large amount of stool is present filling but not dilating the colon from the anastomosis through the descending colon. There is descending and sigmoid diverticulosis. No abnormal sigmoid stool volume. Rectum is dilated to 6.5 cm by stool. No free air, free fluid or pneumatosis. No hernia, mass or bulky lymphadenopathy. No acute bone finding. IMPRESSION: Rectum is dilated to 6.5 cm. Moderate stool volume is present filling but not dilating t he remaining colon. Nonacute findings are detailed in the body of the report are similar to March 03 imaging.
[2022-04-01 17:21] LABS: Urine Bacteria None Seen /HPF (<20); Urine Crystals Unidentified Few /HPF (None Seen); Urine Mucus Slight /HPF (None Seen); Urine RBC <5 /HPF (None Seen)
--- NOTE | 2022-04-01 17:48 | ER ---
Nurse's Notes [facility] Name: Ricky Goetz Age: 76 yrs Sex: Male : 1945 Arrival Date: 04/01/2022 Time: 13:51 Bed 14 Private MD: Diagnosis: Constipation-resolved;Retention of urine, unspecified Presentation: 04/01 14:04 Chief complaint: Patient states: Began feeling constipated this morning, took a stool kb3 softener and a Fleet's enema and is now having small amounts of liquid stool but has not been able to evacuate bowels. Also has not voided since this morning and is feeling uncomfortable pressure to void. Hx of urinary retention and urinary catheter placements. Coronavirus screen: Vaccine status: Patient reports receiving the 2nd dose of the covid vaccine. Client denies travel out of the [place] in the last 14 days. Ebola Screen: Patient negative for fever greater than or equal to 101.5 degrees Fahrenheit, and additional compatible Ebola Virus Disease symptoms Patient denies exposure to infectious person. Patient denies travel to an Ebola-affected area in the 21 days before illness onset. No symptoms or risks identified at this time. Initial Sepsis Screen: Does the patient meet any 2 criteria? No. Patient's initial sepsis screen is negative. Does the patient have a suspected source of infection? No. Patient's initial sepsis screen is negative. Risk Assessment: Do you want to hurt yourself or someone else? Patient reports no desire to harm self or others. Onset of symptoms was April 01, 2022 at 07:00. 14:04 Method Of Arrival: Ambulatory kb3 14:04 Acuity: NANNETTE 3 kb3 Triage Assessment: 14:06 General: Appears uncomfortable, Behavior is calm, appropriate for age. Pain: Complains kb3 of pain in suprapubic area Pain does not radiate. Pain currently is 7 out of 10 on a pain scale. Quality of pain is described as pressure. GI: Patient currently denies abdominal pain, nausea, vomiting. : Reports inability to void, pain. Historical: - Allergies: 14:06 No Known Allergies; kb3 - PMHx: 14:06 Asthma; COPD; Emphysema; GERD; Grave's dx; Colon CA; RLS; kb3 - PSHx: 14:06 colon CA tumor removed; Back sx; kb3 - Immunization history:: Adult Immunizations up to date, Client reports receiving the 2nd dose of the Covid vaccine, Last tetanus immunization: up to date. - Social history:: Smoking status: Patient denies any tobacco usage or history of. Screenin:53 [facility] ED Fall Risk Assessment (Adult) History of falling in the last 3 months, db including since admission No falls in past 3 months (0 pts) Confusion or Disorientation No (0 pts) Intoxicated or Sedated No (0 pts) Impaired Gait No (0 pts) Mobility Assist Device Used No (0 pt) Altered Elimination No (0 pt) Score/Fall Risk Level 0 - 2 = Low Risk Oriented to surroundings. Abuse screen: Denies threats or abuse. Denies injuries from another. Nutritional screening: No deficits noted. On. Nutritional screening:. Tuberculosis screening: No symptoms or risk factors identified. Assessment: 14:54 Reassessment: Patient appears in no apparent distress at this time. Patient and/or db family updated on plan of care and expected duration. Pain level reassessed. Patient is alert, oriented x 3, equal unlabored respirations, skin warm/dry/pink. abdominal pain with urinary retention or urgency x 4 hours. states woke up constipated and used enema. Now has loose stool. General: Appears uncomfortable. General: Behavior is calm, cooperative, appropriate for age. Neuro: No deficits noted. Level of Consciousness is awake, alert, obeys commands, Oriented to person, place, time, situation, Appropriate for age. 16:12 Reassessment: Patient appears in no apparent distress at this time. notified provider db patient states does not want to take fleets enema. reports had a big bowel movement after CT. 18:01 Reassessment: No changes from previously documented assessment. Patient and/or family ll1 updated on plan of care and expected duration. Pain level reassessed. Patient is alert, oriented x 3, equal unlabored respirations, skin warm/dry/pink. 18:02 GI: Bowel sounds present X 4 quads. Abd is soft and non tender X 4 quads. ll1 Vital Signs: 14:04 BP 148 / 81; Pulse 104; Resp 20; Temp 98; Pulse Ox 99% ; Weight 62.6 kg; Height 5 ft. kb3 10 in. (177.80 cm); Pain 7/10; 18:01 BP 126 / 61; Pulse 81; Resp 18; Pulse Ox 99% ; ll1 14:04 Body Mass Index 19.80 (62.60 kg, 177.80 cm) kb3 ED Course: 13:51 Patient arrived in ED. as 13:53 Joselyn Torres FNP-C [facility]. kb 13:53 Ricky Welsh DO is Attending Physician. kb 14:01 Felisha Cuevas, RN is Primary Nurse. db 14:06 Triage completed. kb3 14:06 Arm band placed on right wrist. Patient placed in an exam room, on a stretcher. kb3 14:23 CBC with Diff Sent. mm9 14:23 CMP Sent. mm9 14:23 Lipase Sent. mm9 14:24 Initial lab(s) drawn, by me, sent to lab. mm9 14:26 Patient has correct armband on for positive identification. Placed in gown. Bed in low mm9 position. Call light in reach. Adult w/ patient. Warm blanket given. Pulse ox on. NIBP on. 14:41 Inserted saline lock: 22 gauge in left antecubital area, using aseptic technique. db 14:53 Bladder scan completed. 505. db 15:05 Bladder scan completed. after urination bladder scanned patient again and scan was 433 db ml. 15:19 Abdomen In Process Unspecified. EDMS 15:46 Urine collected: Alejandro catheter specimen, clear. Alejandro cath inserted, using sterile mm9 technique, 16 Fr., by ED staff, balloon inflated, urine specimen collected. 16:01 No provider procedures requiring assistance completed. db 18:02 IV discontinued, intact, bleeding controlled, No redness/swelling at site. Pressure ll1 dressing applied. Administered Medications: 16:12 Not Given (Patient Refused): Fleet Enema (sodium phosphate) 133 ml CO once; may repeat db once Medication: 18:02 VIS not applicable for this client. ll1 Output: 17:16 Urine: 600ml (Alejandro); Total: 600ml. db Outcome: 17:47 Discharge ordered by MD. kb 18:02 Discharged to home via wheelchair. ll1 18:02 Condition: stable 18:02 Discharge instructions given to patient, family, Instructed on discharge instructions, follow up and referral plans. Demonstrated understanding of instructions, follow-up care. 18:02 Patient left the ED. ll1 Signatures: Dispatcher [employer] EDJoselyn Burrell, FABIAN GARCIA-Johanna Reagan Lynsay RN RN ll1 Eula Curtis, ASTRID RN kb3 Felisha Cuevas, RN RN db Tova Acharya mm9
--- NOTE | 2022-04-01 17:48 | EDPHYS ---
Physician Documentation [facility] [place], [place] Name: Ricky Goetz Age: 76 yrs Sex: Male : 1945 Arrival Date: 04/01/2022 Time: 13:51 Bed 14 Private MD: ED Physician Ricky Welsh HPI: 04/01 18:02 This 76 yrs old Male presents to ER via Ambulatory with complaints of Urinary kb Retention, Constipation. 18:02 The patient presents with urinary symptoms, unable to void, Last void was this morning. kb Onset: The symptoms/episode began/occurred yesterday. Modifying factors: The symptoms are alleviated by nothing, the symptoms are aggravated by nothing. Associated signs and symptoms: Pertinent positives: constipation. Severity of symptoms: At their worst the symptoms were moderate, in the emergency department the symptoms are unchanged. The patient has experienced similar episodes in the past. The patient has not recently seen a physician. Pt reports unable to urinate since this morning and constipation for 2 days. . Historical: - Allergies: 14:06 No Known Allergies; kb3 - PMHx: 14:06 Asthma; COPD; Emphysema; GERD; Grave's dx; Colon CA; RLS; kb3 - PSHx: 14:06 colon CA tumor removed; Back sx; kb3 - Immunization history:: Adult Immunizations up to date, Client reports receiving the 2nd dose of the Covid vaccine, Last tetanus immunization: up to date. - Social history:: Smoking status: Patient denies any tobacco usage or history of. ROS: 18:01 Constitutional: Negative for fever, chills, and weight loss. kb 18:01 Abdomen/GI: Positive for constipation, Negative for abdominal pain, nausea and vomiting. 18:01 : Positive for difficulty urinating. 18:01 All other systems are negative. Exam: 18:01 Constitutional: This is a well developed, well nourished patient who is awake, alert, kb and in no acute distress. Head/Face: Normocephalic, atraumatic. ENT: Moist Mucous membranes Cardiovascular: Regular rate and rhythm with a normal S1 and S2. No gallops, murmurs, or rubs. No pulse deficits. Respiratory: Respirations even and unlabored. No increased work of breathing. Talking in full sentences Skin: Warm, dry with normal turgor. Normal color. MS/ Extremity: Pulses equal, no cyanosis. Neurovascular intact. Full, normal range of motion. Neuro: Awake and alert, GCS 15, oriented to person, place, time, and situation. Moves all extremities. Normal gait. Psych: Awake, alert, with orientation to person, place and time. Behavior, mood, and affect are within normal limits. 18:01 Abdomen/GI: Inspection: abdomen appears normal, Bowel sounds: normal, Palpation: soft, in all quadrants, mild abdominal tenderness, in the right lower quadrant and left lower quadrant. Vital Signs: 14:04 BP 148 / 81; Pulse 104; Resp 20; Temp 98; Pulse Ox 99% ; Weight 62.6 kg; Height 5 ft. kb3 10 in. (177.80 cm); Pain 7/10; 18:01 BP 126 / 61; Pulse 81; Resp 18; Pulse Ox 99% ; ll1 14:04 Body Mass Index 19.80 (62.60 kg, 177.80 cm) kb3 MDM: 13:53 Patient medically screened. kb 17:44 ED course: Pt had large BM after CT scan. No need for enema. kb 18:01 Data reviewed: vital signs, nurses notes. Data interpreted: Pulse oximetry: on room air kb is 99 %. Interpretation: normal. Counseling: I had a detailed discussion with the patient and/or guardian regarding: the historical points, exam findings, and any diagnostic results supporting the discharge/admit diagnosis, lab results, radiology results, the need for outpatient follow up, a family practitioner, a urologist, to return to the emergency department if symptoms worsen or persist or if there are any questions or concerns that arise at home. ED course: Pt reports he is feeling much better after zacarias placed and BM. 04/01 13:58 Order name: CBC with Diff kb 04/01 13:58 Order name: CMP; Complete Time: 14:57 kb 04/01 13:58 Order name: Lipase; Complete Time: 14:57 kb 04/01 13:58 Order name: CT Abd/Pelvis - IV Contrast Only kb 04/01 15:47 Order name: Urine Dipstick-Ancillary; Complete Time: 15:48 EDMS 04/01 16:13 Order name: Urine Microscopic Only; Complete Time: 17:44 kb 04/01 13:58 Order name: IV Saline Lock; Complete Time: 14:53 kb 04/01 13:58 Order name: Labs collected and sent; Complete Time: 14:53 kb 04/01 13:58 Order name: Urine Dipstick-Ancillary (obtain specimen); Complete Time: 15:46 kb 04/01 13:58 Order name: Bladder Scanner; Complete Time: 14:52 kb 04/01 14:02 Order name: Abdomen ; Complete Time: 15:49 EDMS 04/01 15:45 Order name: Zacarias; Complete Time: 15:46 kb 04/01 18:00 Order name: Leg Bag; Complete Time: 18:02 kb Administered Medications: 16:12 Not Given (Patient Refused): Fleet Enema (sodium phosphate) 133 ml AL once; may repeat db once Disposition: 17:59 Co-signature as Attending Physician, Ricky Welsh DO I was immediately available on-site ms3 in the Emergency Department for consultation in the care of the patient. 18:07 Co-signature as Attending Physician, Ricky Welsh DO. ms3 Disposition Summary: 04/01/22 17:47 Discharge Ordered Location: Home kb Condition: Stable kb Diagnosis - Constipation - resolved kb - Retention of urine, unspecified kb Followup: kb - With: Emergency Department - When: As needed - Reason: Worsening of condition Followup: kb - With: Private Physician - When: 2 - 3 days - Reason: Recheck today's complaints, Continuance of care, Re-evaluation by your physician Discharge Instructions: - Discharge Summary Sheet kb - Constipation, Adult, [id number] kb - Acute Urinary Retention, Male, [id number] kb Forms: - Medication Reconciliation Form kb - Thank You Letter kb - Antibiotic Education kb - Prescription Opioid Use kb Signatures: Dispatcher [employer] EDMS Joselyn Torres, RN NEUROLOGY-C RN NEUROLOGY-Ricky Martinez DO DO ms3 Eula Curtis, RN RN kb3 Felisha Cuevas RN db
[2022-04-01 18:21] VITALS: TEMP 98; O2SAT 99
[2022-04-01 18:27] VITALS: BP 126/61
[2022-04-01 19:32] LABS: Anisocytosis 3+; Blood Morphology Comment NOTED (NOT SEEN); Ovalocytes 2+; Platelet Estimate ADEQ; Poikilocytosis 2+; White Blood Cell Scan OK (OK)
== END 2022-04-01 18:02 | disposition home or self-care (01) ==
LOC: ER 13:49
DX: R33.9 Retention of urine, unspecified (principal); Z85.038 Personal history of other malignant neoplasm of large intestine
CPT/HCPCS: 85025; 36415; 83690; 80053; 74177; 51702; 99284; Q9967; 81003; 81015